=== PATIENT | male | born 1995 | race Caucasian/White ===

== ENCOUNTER 2017-05-12 16:35 | Inpatient (IN) | payer BC ==
[2017-05-12] MEDS ORDERED: MAGNESIUM HYDROXIDE 2,400 MG/10 ML CUP PO PRN (17:21)
[2017-05-12] MEDS ORDERED: ACETAMINOPHEN TAB 325 MG TAB PO PRN (17:21)
[2017-05-12] MEDS ORDERED: MAG HYDROX/AL HYDROX/SIMETH 30 ML CUP PO PRN (17:21)
[2017-05-12] MEDS ORDERED: OLANZapine 5 MG TAB PO ONE (17:45)
[2017-05-12] MEDS ORDERED: ZIPRASIDONE 20 MG VIAL IM STA (18:48)
[2017-05-12] MEDS ORDERED: ZIPRASIDONE 20 MG VIAL IM ONE (18:50)
[2017-05-12] MEDS ORDERED: WATER FOR INJECTION, STERILE 10 ML IV ONE (18:50)
[2017-05-12] MEDS ORDERED: HALOPERIDOL LACTATE 5 MG/ML 1 ML VIAL IM ONE (19:31)
[2017-05-12] MEDS ORDERED: LORazepam 2 MG/ML SYRINGE ONE (19:32)
[2017-05-12] MEDS ORDERED: HALOPERIDOL LACTATE 5 MG/ML 1 ML VIAL ONE (19:32)
[2017-05-12] MEDS ORDERED: LORazepam 2 MG/ML SYRINGE IM ONE (19:32)
[2017-05-13 09:05] LABS: Basophils % (A) 1 %; CH 34.9; CHCM 34.9; Eosinophils # (A) 0.1 k/uL (0-0.7); Eosinophils % (A) 2 %; HCT 51.7 % (39.0-53.0); HGB 17.5 gm/dL (13.0-17.5); Luc % (Auto) 2; Lymphocytes # (A) 1.5 k/uL (1.0-4.8); Lymphocytes % (A) 29 %; MCH 33.9 pg (25.0-35.0); MCHC 33.8 g/dL (31.0-37.0); MCV 100.2 fL (80.0-100.0); Mean Platelet Volume 6.6; Monocytes # (A) 0.3 k/uL (0-1.0); Monocytes % (A) 5 %; Neutrophils # (A) 3.4 k/uL (1.3-7.7); Neutrophils % (A) 62 %; RBC 5.16 m/uL (4.30-5.90); RDW 12.5 % (11.5-15.5); WBC 5.4 k/uL (4.0-11.0); WBC (Perox) 5.49
--- NOTE | 2017-05-13 09:24 | P.HP ---
Psychiatric H&P - . H&P Date: 05/13/17 History & Physical: Allergies Allergy/AdvReac Type Severity Reaction Status Date / Time No Known Allergies Allergy Verified 05/12/17 17:20 Vital Signs Temp 98.1 F 05/12/17 18:19 Pulse 69 05/12/17 18:19 Resp 15 05/12/17 18:19 BP 138/82 05/12/17 18:19 Pulse Ox 94 L 05/12/17 18:19 Intake & Output 05/12/17 05/13/17 05/13/17 18:59 06:59 18:59 Weight 57.5 kg 05/13/17 09:09 DATE OF SERVICE: 05/13/2017 IDENTIFYING DATA: This patient is a 22-year-old single male who was admitted to the mental health unit through transfer from emergency room at [facility].. HISTORY OF PRESENT ILLNESS: The patient presented emergency room [facility] for hearing voices telling him to kill himself. Reports that he was hearing 4-5 voices. He also reported seeing things like the dog and its leash and then thinking about hanging himself, thinking about the shotgun that's in his family's closet that he could just shoot himself. On exam today patient states there is no reason for him to be here, that we are holding him illegally that he came voluntarily to the hospital but now he wants to leave. States that he is called his parents and his girlfriend and that they won't speak with him, so he will call an attorney law clerk. Patient states that other behavior that got him to the emergency room was that he was "wide eyeing" his parents asked him to explain that he looked with wide eye around the room put his finger to the corner of his mouth and said I'll have to think about that. Patient began to show me his papers of the petition but could not make sense out of the paperwork, then when he asked if I was going to release him and informed about the process of petition and certification he then said this is over I don't need to speak with you anymore. " You don't like me because I'm interrupting you, you're mad at me. You have fluorescent lights in your office, you have air conditioning this is bad for people" And he left the office on his way out he said he would see outpatient psychiatrist like he did when he was a child.." I want a new psychiatrist". PAST PSYCHIATRIC HISTORY: Unknown but he did report seeing a psychiatrist as a child. PAST MEDICAL HISTORY: None. ALLERGIES: No known drug allergies. CHEMICAL DEPENDENCY HISTORY: Unknown but report of occasional marijuana use. FAMILY PSYCHIATRIC HISTORY: Unknown. FAMILY CHEMICAL DEPENDENCY HISTORY: Unknown. LEGAL HISTORY: Unknown. SOCIAL HISTORY: Patient reports that he has a girlfriend but otherwise no history was provided. MENTAL STATUS EXAM: Patient alert and oriented 3, good eye contact, fair groomed in hospital gown. Speech normal volume, rate and increased production, +pressured speech Coherent, logical and circumstantial, tangential thought process. No NATHAN, no FOI. No TB/TW/TI ++auditory and visual hallucinations. +Command hallucinations. Denied paranoid ideation, delusions or IOR. Memory grossly intact Cognition average Unable to complete memory testing Mood irritable, affect constricted, congruent with mood. Denies suicidal ideation, denies homicidal ideation. Insight none; Judgment grossly impaired . STRENGTHS: Has housing. WEAKNESSES: No insight, psychosis. IMPRESSIONS: 22-year-old male with incomplete past history, presented to [facility] emergency room with complaints of hearing voices that included command hallucinations of suicide. He was seeing different objects dog leash and thinking ups hanging himself, remembering that the family has a shot gun in the closet and thinking to shoot himself. Patient has pressured speech interrupting the sports book writer but being aware that he is interrupting the sports book writer and then attributing emotions to that sports book writer. Initially describing 4-5 voices, but now stating they are just his thoughts that he can kick out of his mind. 22-year-old male presenting with signs and symptoms of livia with psychosis, no insight. Command hallucinations that include ways to kill himself. Patient is a danger to himself and must be protected. We'll sign the second certification, and proceed to the court process. Psychosis, unspecified R/O Bipolar type I R/O Schizophreniform PLAN: Continue inpatient psychiatric admission for safety, assessment, and treatment of psychosis and livia. Suicide precautions every 15 minutes. Sign second certification. Begin risperidone 1 mg twice a day History and physical by hospitalist, manage medical illnesses. Psychosocial history to include his past history, family history, and any substance use history. Family meeting. Assessment patient's response to medication daily.
[2017-05-13 09:27] LABS: ALT 28 U/L (21-72); AST 20 U/L (17-59); Alkaline Phosphatase 46 U/L (38-126); Anion Gap 14 mmol/L; Blood Urea Nitrogen 14 mg/dL (9-20); Carbon Dioxide 26 mmol/L (22-30); Chloride 106 mmol/L (98-107); Glucose 94 mg/dL (74-99); Non-African American GFR(MDRD) >60 (>60 ml/min/1.73 sqM); Potassium 4.4 mmol/L (3.5-5.1); Sodium 146 mmol/L (137-145); Total Bilirubin 3.1 mg/dL (0.2-1.3); Total Protein 7.8 g/dL (6.3-8.2)
[2017-05-13] MEDS: NEOMYCIN-POLYMYXIN-HC (3.5-10,000-10 MG) OTIC DROPS 10 ML BTL LEFT EAR SCH ×2 (13:10→21:50)
--- NOTE | 2017-05-13 13:58 | P.CONS ---
History of Present Illness - Reason for Consult Consult date: 05/13/17 Medical management - History of Present Illness This is a 22-year-old male who does not have a primary care physician. He has a past medical history of tobacco use and dependence, marijuana use. Patient states that he has not been sleeping and having insomnia just staying up reading. He then was having hallucinations of items that were used to kill people. He was at [facility] and then transferred to [facility] health unit. He denies any previous mental health admissions. He has taken Adderall in the past because his employer did not think he could listen. Regarding smoking cessation, patient does not want a nicotine patch as he does not think it works and the only thing that works for him vaping which is not available here. Patient states he was recently treated for a left otitis media for which he is on Cortisporin otic solution. Review of Systems All systems: negative Constitutional: Denies chills, Denies fever Eyes: denies blurred vision, denies pain Ears, nose, mouth and throat: Denies headache, Denies sore throat Cardiovascular: Denies chest pain, Denies shortness of breath Respiratory: Denies cough Gastrointestinal: Denies abdominal pain, Denies diarrhea, Denies nausea, Denies vomiting Musculoskeletal: Denies myalgias Integumentary: Denies pruritus, Denies rash Neurological: Denies numbness, Denies weakness Psychiatric: Reports depression, Reports hallucinations, Reports insomnia, Denies anxiety Endocrine: Denies fatigue, Denies weight change Past Medical History Additional Past Alcohol Use History / Comment(s): Patient is a smoker of one pack per day for 7 years. He denies any alcohol use. He does use marijuana on a regular basis. He does not think he has used other street drugs. He is unemployed and single. He does not have any children. - Past Family History Father Additional Family Medical History / Comment(s): Father is alive at age 52 with no major medical problems. Mother Additional Family Medical History / Comment(s): Mother is alive at age 52 with no major medical problems. Brother(s) Additional Family Medical History / Comment(s): Patient has one half-brother and one half-sister with no major medical problems. Medications and Allergies Home Medications Medication Instructions Recorded Confirmed Type Neomycin/Polymyxin B/Hydrocort 4 drops LEFT EAR BID 05/13/17 05/13/17 History [Ipqshamo-Uzgljpuxi-Yy Ear Soln] Allergies Allergy/AdvReac Type Severity Reaction Status Date / Time No Known Allergies Allergy Verified 05/12/17 17:20 Physical Exam Vitals: Vital Signs Temp Pulse Resp BP Pulse Ox 05/12/17 18:19 98.1 F 69 15 138/82 94 L Intake and Output 05/12/17 05/13/17 05/13/17 22:59 06:59 14:59 Other: Weight 57.5 kg Gen: This is a 22-year-old male. He is cooperative and appears to be not acute distress. Patient does seem to have difficulty focusing. HEENT: Head is atraumatic, normocephalic. Pupils equal, round. Sclerae is anicteric. NECK: Supple. No JVD. No lymphadenopathy. No thyromegaly. LUNGS: Clear to auscultation. No wheezes or rhonchi. No intercostal retractions. HEART: Regular rate and rhythm. No murmur. ABDOMEN: Soft. Bowel sounds are present. No masses. No tenderness. EXTREMITIES: No pedal edema. No calf tenderness. NEUROLOGICAL: Patient is awake, alert and oriented x3. Cranial nerves 2 through 12 are grossly intact. Results CBC & Chem 7: 05/13/17 08:46 05/13/17 08:46 Labs: Abnormal Lab Results - Last 24 Hours (Table) 05/13/17 05/13/17 Range/Units 08:46 08:46 MCV 100.2 H (80.0-100.0) fL Sodium 146 H (137-145) mmol/L Total Bilirubin 3.1 H (0.2-1.3) mg/dL Assessment and Plan Plan: 1. Hallucinations, depression and insomnia. Patient admitted to the mental health unit. Continue current plan of care. 2. Tobacco use and dependence. Patient does not want nicotine patch or gum. 3. Left otitis media. Continue Cortisporin otic solution. Impression and plan of care have been directed as dictated by the signing physician. Janna Ward nurse practitioner acting as scribe for signing physician.
[2017-05-13] MEDS ORDERED: LITHIUM CARBONATE 300 MG CAP PO SCH (21:00)
--- NOTE | 2017-05-14 09:42 | P.PN ---
Progress Note - Text INTERVERAL HISTORY: Patient discussed at treatment team meeting, review of chart and met with patient. Patient was on the phone asked him if he could, when he was finished, he hung up and stated "I was just calling an family law attorney, you guys are not contacting my parents" patient reports that the staff won't talk to him, when he goes to the nurse's station he asked him to call his family and they ignore him states the other patients are talking about him they're whispering and laughing Asked him how he did last night said that he slept well and he is fine, and that he needs to go home. Reviewed with him the court process, that an family law attorney will be assigned to him, and will meet with him on a specific day and time. Patient is now saying he will do whatever just to get out of here. While trying to explain process again to him he interrupted constantly stating that we were not doing what we were supposed to do, that he needed help from family members not from a total stranger, and that he knows that lithium is for and that he does not have bipolar disorder, that it was due to the fact that he had been taking Adderall and that that psych a stimulant. States he's been taking Adderall since sixth or seventh grade, that it's like methamphetamine, and that all he needs is marijuana because it's an antidepressant. Patient irritable with script writer for not agreeing to call his parents to have a conference call. No evidence of patient responding to internal stimuli. MENTAL STATUS EXAM: Patient alert and oriented 3, good eye contact, fair groomed in hospital gown. Speech normal volume, rate and increased production, +pressured speech Coherent, logical and circumstantial, tangential thought process. No NATHAN, no FOI. No TB/TW/TI No auditory and visual hallucinations, reported, not responding to internal stimuli.+Paranoid ideation, delusions or IOR. Memory grossly intact Cognition average Unable to complete memory testing Mood irritable, affect constricted, congruent with mood. Denies suicidal ideation, denies homicidal ideation. Insight none; Judgment grossly impaired . IMPRESSIONS: 22-year-old male with incomplete past history, presented to [facility] emergency room with complaints of hearing voices that included command hallucinations of suicide. He was seeing different objects such as a dog leash and thinking of hanging himself, remembering that the family has a shot gun in the closet and thinking to shoot himself. Today patient continues with pressured speech interrupting the script writer. Today not describing 4-5 voices, but now stating other patients are talking and laughing about him, staff ignoring him. 22-year-old male presented with signs and symptoms of livia and psychosis, no insight. No command hallucinations reported today. Patient recieved 3 injections, Haldol, Geodon, Ativan which helped to lessen the livia and psychosis. Did not use risperidone yesterday due to his having received 2 injections of antipsychotics. Patient is a danger to himself and must be protected. We'll sign the second certification, and proceed to the court process. Psychosis, unspecified Livia R/O Bipolar type I R/O Schizophreniform PLAN: Continue inpatient psychiatric admission for safety, assessment, and treatment of psychosis and livia. Suicide precautions every 15 minutes. Increase [place] 600MG QHSs. Psychosocial history to include his past history, family history, and any substance use history. Family meeting. Assessment patient's response to medication daily.
[2017-05-14] MEDS: NICOTINE 14MG/24HR PATCH TRANSDERM SCH (09:52)
[2017-05-14] MEDS: NEOMYCIN-POLYMYXIN-HC (3.5-10,000-10 MG) OTIC DROPS 10 ML BTL LEFT EAR SCH ×2 (09:53→22:11)
[2017-05-14] MEDS: LITHIUM CARBONATE 300 MG CAP PO SCH (21:49)
[2017-05-15] MEDS: NICOTINE 14MG/24HR PATCH TRANSDERM SCH (09:04)
[2017-05-15] MEDS: NEOMYCIN-POLYMYXIN-HC (3.5-10,000-10 MG) OTIC DROPS 10 ML BTL LEFT EAR SCH ×2 (09:04→20:40)
--- NOTE | 2017-05-15 09:11 | P.PN ---
Progress Note - Text INTERVERAL HISTORY: Patient discussed at treatment team meeting, review of chart and met with patient. Patient was in his room with pencils and crayons, drawing. Responded to name and agreed to come to office. "I need some shoes" Reports he slept very well last night. Denies hearing voices, denies having his thoughts of hurting himself. States the staff are very helpful, no c/o patients talking/whispering/laughing about him. Discussed he will meet with his workers compensation defense attorney today for the court process, he did not say if he will sign deferral. Discussed medication, he is not wanting to take more medication. He was pleasant, cooperative, not interrupting magnetic tape typewriter operator. No demands made to leave or call his family. MENTAL STATUS EXAM: Patient alert and oriented 3, good eye contact, fair groomed in street clothing. Speech normal volume, rate and increased production, +pressured speech Coherent, logical and goal directed thought process. No NATHAN, no FOI. No TB/TW/TI No auditory and visual hallucinations, reported, not responding to internal stimuli. Not reporting paranoid ideation, delusions or IOR. Memory grossly intact Cognition average Mood euthymic, affect full range, normal intensity, congruent with mood. Denies suicidal ideation, denies homicidal ideation. Insight none; Judgment grossly impaired . IMPRESSIONS: 22-year-old male with incomplete past history, presented to [facility] emergency room with complaints of hearing voices that included command hallucinations of suicide. He was seeing different objects such as a dog leash and thinking of hanging himself, remembering that the family has a shot gun in the closet and thinking to shoot himself. Today patient was polite, cooperative, no intrusiveness no pressured speech no irritability. There is no evidence of psychosis today, not describing 4-5 voices, paranoid ideation. 22-year-old male presented with signs and symptoms of livia and psychosis, no insight. He had 2 shots of antipsychotic medication when he arrived on the unit 1 shot of Ativan. Since then he has only received lithium which was increased to 600 mg last night. Currently there does not appear to be any psychosis, and no livia. No history at this point of a depressive episode, so will have to diagnose livia, with a rule out of bipolar type I. Ilvia, resolved Psychosis, unspecified, resolved R/O Bipolar type I PLAN: Continue inpatient psychiatric admission for safety, assessment, and treatment of psychosis and livia. Suicide precautions every 15 minutes. Continue [place] 600MG QHSs. Blood level in 5 days is the ideal but it is unlikely he needs inpatient admission till then, will wait and see what happens today with court process, then consider level Th or Saturday AM. Psychosocial history to include his past history, family history, and any substance use history. Family meeting. Assessment patient's response to medication daily.
[2017-05-15] MEDS: LITHIUM CARBONATE 300 MG CAP PO SCH (20:39)
[2017-05-16 06:40] VITALS: BP 114/71; PULSE 67; RESP 18; TEMP 98.2
[2017-05-16] MEDS: NICOTINE 14MG/24HR PATCH TRANSDERM SCH (09:29)
[2017-05-16] MEDS: NEOMYCIN-POLYMYXIN-HC (3.5-10,000-10 MG) OTIC DROPS 10 ML BTL LEFT EAR SCH (09:29)
--- NOTE | 2017-05-16 12:16 | P.DS ---
Providers Date of admission: 05/12/17 17:58 Expected date of discharge: 05/16/17 Attending physician: Keerthi Mariscal MD Consults: 05/12/17 17:21 Consult Physician Routine Consulting Provider: Alin Mcnair Reason/Comments: follow up h & p Do you want consulting provider notified?: Yes Primary care physician: [facility] Course: ADMISSION HISTORY: The patient presented to emergency room at [facility] for hearing voices telling him to kill himself. Reports that he was hearing 4-5 voices. He also reported seeing things like the dog and its leash and then thinking about hanging himself, thinking about the shotgun that's in his family's closet that he could just shoot himself. On exam patient stated there is no reason for him to be here, that we are holding him illegally that he came voluntarily to the hospital but now he wants to leave. States that he is called his parents and his girlfriend and that they won't speak with him, so he will call an workers compensation defense attorney. Patient states that other behavior that got him to the emergency room was that he was "wide eyeing" his parents asked him to explain that he looked with wide eye around the room put his finger to the corner of his mouth and said I'll have to think about that". Patient began to show me his papers of the petition but could not make sense out of the paperwork, then when he asked if I was going to release him and informed about the process of petition and certification he then said "this is over I don't need to speak with you anymore , you don't like me because I'm interrupting you, you're mad at me. You have fluorescent lights in your office, you have air conditioning this is bad for people" And he left the office, but on his way out he said he would see outpatient psychiatrist like he did when he was a child.." I want a new psychiatrist". MENTAL STATUS EXAM: Patient alert and oriented 3, good eye contact, fair groomed in hospital gown. Speech normal volume, rate and increased production, +pressured speech Coherent, logical and circumstantial, tangential thought process. No NATHAN, no FOI. No TB/TW/TI ++auditory and visual hallucinations. +Command hallucinations. Denied paranoid ideation, delusions or IOR. Memory grossly intact Cognition average Unable to complete memory testing Mood irritable, affect constricted, congruent with mood. Denies suicidal ideation, denies homicidal ideation. Insight none; Judgment grossly impaired ADMISSION DIAGNOSES: Psychosis, unspecified R/O Bipolar type I R/O Schizophreniform HOSPITAL COURSE: Once patient was up on the unit he became agitated demanding to leave threatening, disorganized thought process. He was unable to calm down he was given Haldol 2 mg IM, then Geodon 20 mg IM, and then Ativan 2 mg IM. By a mid morning he was a bit calmer but he was still psychotic, demanding, manic. He was on a petition and it was decided that he could not sign in voluntarily and it went to the process of deferral. At the time of his admission he was psychotic he was manic. We could not get any history of previous episodes, and we could not reach the family for history. Initially I was going to use risperidone, but decided against that and used lithium. The first night he did not sleep well, increase lithium to 600 mg and he slept better. It is also noted that he did receive those 2 injections of an antipsychotic that may have been the reason that the psychosis resolved. We finally reached his mother who stated that approximately a year ago Cesar had a similar presentation and he was treated in an emergency room with large doses of Ativan, very difficult to calm him down. And that was due to his taking LSD. This admission patient denies that he took LSD, or any other drug of abuse. However he does state that he took several of his Adderall XR, dose unknown. MENTAL STATUS EXAM: Patient alert and oriented 3, good eye contact, well groomed in street clothing. Speech normal volume, rate and production, no pressured speech Coherent, logical and goal directed thought process. No NATHAN, no FOI. No TB/TW/TI No auditory and visual hallucinations, reported, not responding to internal stimuli. No paranoid ideation, delusions or IOR. Memory grossly intact Cognition average Mood euthymic, affect full range, normal intensity, congruent with mood. Denies suicidal ideation, denies homicidal ideation. Insight none; Judgment grossly impaired Patient accepted the deferral. He is sleeping, no evidence of psychosis, and no livia. DISCHARGE DIAGNOSES: Manic episode, resolved Psychosis, resolved PLAN: Will discharge. [place] 600mg QHS SW will set up outpatient treatment. Discussed need to keep hydrated, to stop lithium if he had vomiting, diarrhea, or a fever. Patient verbalized understanding. Pertinent Studies: none Procedures: none Plan - Discharge Summary New Discharge Prescriptions: New [place] Carbonate 600 mg PO HS #60 cap Continue Neomycin/Polymyxin B/Hydrocort [Jnlpukha-Ijgjpevlo-Jc Ear Soln] 4 drops LEFT EAR BID Discharge Medication List Neomycin/Polymyxin B/Hydrocort [Qjdqqsla-Aygoovwto-Oo Ear Soln] 4 drops LEFT EAR BID 05/13/17 [History] [place] Carbonate 600 mg PO HS #60 cap 05/16/17 [Rx] Discharge Disposition: HOME SELF-CARE
== END 2017-05-16 15:25 | disposition home or self-care (01) | DRG 885 ==
LOC: 3MHU 17:58
PROVIDERS: ADMIT Psychiatry & Neurology Addiction Medicine; ATTEND Psychiatry & Neurology Addiction Medicine
DX: F29 Unspecified psychosis not due to a substance or known physiological condition (principal); R45.851 Suicidal ideations; F30.9 Manic episode, unspecified; F12.90 Cannabis use, unspecified, uncomplicated; H66.92 Otitis media, unspecified, left ear; R45.4 Irritability and anger; F17.200 Nicotine dependence, unspecified, uncomplicated; G47.00 Insomnia, unspecified; Z56.0 Unemployment, unspecified
CPT/HCPCS: 80053; 84443; 85025

== ENCOUNTER 2017-06-09 21:34 | Inpatient (IN) | payer BC, MEDICAID ==
--- NOTE | 2017-06-09 23:07 | ED ---
Psych HPI - General Chief Complaint: Psychiatric Symptoms Stated Complaint: Mental Health Time Seen by Provider: 06/09/17 21:37 Source: patient, EMS, RN notes reviewed Mode of arrival: EMS Limitations: no limitations - History of Present Illness Initial Comments: 22-year-old male brought to emergency department via EMS for psychiatric evaluation. Patient was recently admitted the hospital for psychiatric problems. Patient is on lithium. Patient states that he has no complaints at this time is unsure why he is brought here. Patient is hand button splitter her petition for her arterial hallucinations. This was written by psychiatrist. Patient denies any suicidal homicidal threats. Patient states he has been taking his medication. Patient states he was drinking alcohol today. - Related Data Home Medications Medication Instructions Recorded Confirmed QUEtiapine FUMARATE [SEROquel] 25 - 50 mg PO HS 06/09/17 06/09/17 Previous Rx's Medication Instructions Recorded [place] Carbonate 600 mg PO HS #60 cap 05/16/17 Allergies Allergy/AdvReac Type Severity Reaction Status Date / Time No Known Allergies Allergy Verified 06/09/17 22:16 Review of Systems ROS Statement: Those systems with pertinent positive or pertinent negative responses have been documented in the HPI. ROS Other: All systems not noted in ROS Statement are negative. Past Medical History Past Medical History: No Reported History History of Any Multi-Drug Resistant Organisms: None Reported Past Surgical History: No Surgical Hx Reported Past Psychological History: Anxiety, Depression Smoking Status: Current every day smoker Past Alcohol Use History: Occasional Past Drug Use History: Marijuana - Past Family History Father Additional Family Medical History / Comment(s): Father is alive at age 52 with no major medical problems. Mother Additional Family Medical History / Comment(s): Mother is alive at age 52 with no major medical problems. Brother(s) Additional Family Medical History / Comment(s): Patient has one half-brother and one half-sister with no major medical problems. General Exam Limitations: no limitations General appearance: alert, in no apparent distress Head exam: Present: atraumatic, normocephalic, normal inspection Neck exam: Present: normal inspection. Absent: tenderness, meningismus, lymphadenopathy Respiratory exam: Present: normal lung sounds bilaterally. Absent: respiratory distress, wheezes, rales, rhonchi, stridor Cardiovascular Exam: Present: regular rate, normal rhythm, normal heart sounds. Absent: systolic murmur, diastolic murmur, rubs, gallop, clicks GI/Abdominal exam: Present: soft, normal bowel sounds. Absent: distended, tenderness, guarding, rebound, rigid Neurological exam: Present: alert, oriented X3, CN II-XII intact Psychiatric exam: Present: normal affect, normal mood Course Vital Signs 06/09/17 21:46 Temperature 98.3 F Pulse Rate 102 H Respiratory 20 Rate Blood Pressure 131/66 O2 Sat by Pulse 99 Oximetry Disposition Clinical Impression: Psychosis, Bipolar disorder Disposition: ADMITTED IP TO THIS HOSP Referrals: Alin Greco MD [Primary Care Provider] - 1-2 days
[2017-06-10 12:10] LABS: Appearance,Urine Clear (Clear); Bilirubin,Urine Negative (Negative); Glucose,Urine (UA) Negative (Negative); Ketones,Urine Negative (Negative); Leukocyte Esterase,Urine Negative (Negative); Nitrite,Urine Negative (Negative); Protein,Urine Negative (Negative); UA Billing (MACRO vs. MICRO) CHEM; Urobilinogen,Urine <2.0 mg/dL (<2.0)
[2017-06-10 12:23] LABS: Basophils % (A) 0 %; CH 34.2; CHCM 34.3; Eosinophils # (A) 0.1 k/uL (0-0.7); Eosinophils % (A) 1 %; HCT 49.5 % (39.0-53.0); HDW 2.24; HGB 17.2 gm/dL (13.0-17.5); Luc % (Auto) 1; Lymphocytes # (A) 1.1 k/uL (1.0-4.8); Lymphocytes % (A) 11 %; MCH 34.8 pg (25.0-35.0); MCHC 34.8 g/dL (31.0-37.0); MCV 100.1 fL (80.0-100.0); Mean Platelet Volume 6.9; Monocytes # (A) 0.5 k/uL (0-1.0); Monocytes % (A) 6 %; Neutrophils # (A) 7.6 k/uL (1.3-7.7); Neutrophils % (A) 81 %; RBC 4.95 m/uL (4.30-5.90); RDW 12.7 % (11.5-15.5); WBC 9.4 k/uL (4.0-11.0); WBC (Perox) 9.55
[2017-06-10 12:28] LABS: ALT 30 U/L (21-72); AST 23 U/L (17-59); Alkaline Phosphatase 50 U/L (38-126); Anion Gap 10 mmol/L; Blood Urea Nitrogen 14 mg/dL (9-20); Calcium 9.9 mg/dL (8.4-10.2); Carbon Dioxide 30 mmol/L (22-30); Chloride 101 mmol/L (98-107); Glucose 79 mg/dL (74-99); Non-African American GFR(MDRD) >60 (>60 ml/min/1.73 sqM); Potassium 4.3 mmol/L (3.5-5.1); Sodium 141 mmol/L (137-145); Total Bilirubin 1.7 mg/dL (0.2-1.3); Total Protein 7.5 g/dL (6.3-8.2)
[2017-06-10] MEDS ORDERED: NICOTINE 21MG/24HR PATCH TRANSDERM STA (12:57)
[2017-06-10] MEDS ORDERED: ACETAMINOPHEN TAB 325 MG TAB PO PRN (15:48)
[2017-06-10] MEDS ORDERED: ZIPRASIDONE 20 MG VIAL IM PRN (15:48)
[2017-06-10] MEDS ORDERED: MAGNESIUM HYDROXIDE 2,400 MG/10 ML CUP PO PRN (15:48)
[2017-06-10] MEDS ORDERED: MAG HYDROX/AL HYDROX/SIMETH 30 ML CUP PO PRN (15:48)
[2017-06-10] MEDS ORDERED: QUEtiapine 50 MG TAB PO SCH (21:00)
[2017-06-10] MEDS: LITHIUM CARBONATE 300 MG CAP PO SCH (21:22)
[2017-06-11] MEDS: NICOTINE 21MG/24HR PATCH TRANSDERM SCH (09:09)
--- NOTE | 2017-06-11 12:48 | P.HP ---
Psychiatric H&P - . H&P Date: 06/11/17 History & Physical: Allergies Allergy/AdvReac Type Severity Reaction Status Date / Time No Known Allergies Allergy Verified 06/09/17 22:16 Vital Signs Temp 97.9 F 06/11/17 06:42 Pulse 79 06/11/17 06:42 Resp 14 06/11/17 06:42 BP 108/67 06/11/17 06:42 Pulse Ox 99 06/10/17 15:51 Laboratory Last Values WBC 9.4 k/uL (4.0-11.0) 06/10/17 12:08 RBC 4.95 m/uL (4.30-5.90) 06/10/17 12:08 Hgb 17.2 gm/dL (13.0-17.5) 06/10/17 12:08 Hct 49.5 % (39.0-53.0) 06/10/17 12:08 MCV 100.1 fL (80.0-100.0) H 06/10/17 12:08 MCH 34.8 pg (25.0-35.0) 06/10/17 12:08 MCHC 34.8 g/dL (31.0-37.0) 06/10/17 12:08 RDW 12.7 % (11.5-15.5) 06/10/17 12:08 Plt Count 275 k/uL (150-450) 06/10/17 12:08 Neutrophils % 81 % 06/10/17 12:08 Lymphocytes % 11 % 06/10/17 12:08 Monocytes % 6 % 06/10/17 12:08 Eosinophils % 1 % 06/10/17 12:08 Basophils % 0 % 06/10/17 12:08 Neutrophils # 7.6 k/uL (1.3-7.7) 06/10/17 12:08 Lymphocytes # 1.1 k/uL (1.0-4.8) 06/10/17 12:08 Monocytes # 0.5 k/uL (0-1.0) 06/10/17 12:08 Eosinophils # 0.1 k/uL (0-0.7) 06/10/17 12:08 Basophils # 0.0 k/uL (0-0.2) 06/10/17 12:08 Sodium 141 mmol/L (137-145) 06/10/17 12:08 Potassium 4.3 mmol/L (3.5-5.1) 06/10/17 12:08 Chloride 101 mmol/L (98-107) 06/10/17 12:08 Carbon Dioxide 30 mmol/L (22-30) 06/10/17 12:08 Anion Gap 10 mmol/L 06/10/17 12:08 BUN 14 mg/dL (9-20) 06/10/17 12:08 Creatinine 0.83 mg/dL (0.66-1.25) 06/10/17 12:08 Est GFR (MDRD) Af Amer >60 (>60 ml/min/1.73 sqM) 06/10/17 12:08 Est GFR (MDRD) Non-Af >60 (>60 ml/min/1.73 sqM) 06/10/17 12:08 Glucose 79 mg/dL (74-99) 06/10/17 12:08 Calcium 9.9 mg/dL (8.4-10.2) 06/10/17 12:08 Total Bilirubin 1.7 mg/dL (0.2-1.3) H 06/10/17 12:08 AST 23 U/L (17-59) 06/10/17 12:08 ALT 30 U/L (21-72) 06/10/17 12:08 Alkaline Phosphatase 50 U/L (38-126) 06/10/17 12:08 Total Protein 7.5 g/dL (6.3-8.2) 06/10/17 12:08 Albumin 4.8 g/dL (3.5-5.0) 06/10/17 12:08 Urine Color Light Yellow 06/10/17 10:30 Urine Appearance Clear (Clear) 06/10/17 10:30 Urine pH 8.0 (5.0-8.0) 06/10/17 10:30 Ur Specific [place] 1.010 (1.001-1.035) 06/10/17 10:30 Urine Protein Negative (Negative) 06/10/17 10:30 Urine Glucose (UA) Negative (Negative) 06/10/17 10:30 Urine Ketones Negative (Negative) 06/10/17 10:30 Urine Blood Negative (Negative) 06/10/17 10:30 Urine Nitrite Negative (Negative) 06/10/17 10:30 Urine Bilirubin Negative (Negative) 06/10/17 10:30 Urine Urobilinogen <2.0 mg/dL (<2.0) 06/10/17 10:30 Ur Leukocyte Esterase Negative (Negative) 06/10/17 10:30 Urine Opiates Screen Not Detected (NotDetected) 06/10/17 10:30 Ur Oxycodone Screen Not Detected (NotDetected) 06/10/17 10:30 Urine Methadone Screen Not Detected (NotDetected) 06/10/17 10:30 Ur Propoxyphene Screen Not Detected (NotDetected) 06/10/17 10:30 Ur Barbiturates Screen Not Detected (NotDetected) 06/10/17 10:30 U Tricyclic Antidepress Not Detected (NotDetected) 06/10/17 10:30 Ur Phencyclidine Scrn Not Detected (NotDetected) 06/10/17 10:30 Ur Amphetamines Screen Not Detected (NotDetected) 06/10/17 10:30 U Methamphetamines Scrn Not Detected (NotDetected) 06/10/17 10:30 U Benzodiazepines Scrn Not Detected (NotDetected) 06/10/17 10:30 [place] 0.7 mmol/L 06/09/17 23:40 Urine Cocaine Screen Not Detected (NotDetected) 06/10/17 10:30 U Marijuana (THC) Screen Not Detected (NotDetected) 06/10/17 10:30 06/11/17 12:48 DATE OF SERVICE: June 11 2017 IDENTIFYING DATA: This patient is a 22-year-old single male who was admitted to the mental health unit through emergency room, brought in by his parents due to an interaction he had with them... HISTORY OF PRESENT ILLNESS: Cesar was brought in on court order due to responding to internal cues, current psychosis and verbal aggression toward family members. Extreme mood swings. Family reports crying then happy then laughing then sad then agitation. He's been talking to things that aren't there , arguing with parent about events that never occurred or exist and verbal profanity toward mother. family members give him his medication daily. Denies suicidal and homicidal ideation at this time. Does report seeing and hearing things currently while in EC. Polite and cooperative at this time. The patient presented emergency room after his psychiatrist requested him to be brought in due to psychosis and verbal aggression with family members. Patient states that he does not know why he was brought here he reports that he is doing fine, he is very pleasant and cooperative. Initially when asked about hearing voices he denies but later agrees that he might have his own voice telling him things are making him laugh. He also agreed that sometimes there is something like in their relation about his behavior. States that when it's an negative, met about his behavior he ignores it but he could not provide any information. Family reported that they give his medications and his lithium level taken in the emergency room was 0.7 mmol/L When he was discharged here in April he was discharged only on lithium, at that time psychosis had resolved just with lithium. His outpatient psychiatrist put him on quetiapine/Seroquel 50 mg at bedtime. Was also noted that his PAT was 0.9. He denies that he drinks alcohol however his MCV was elevated at 101 and his bilirubin was also elevated but he denies that he drinks on a regular basis. Patient denies suicidal ideation. PAST PSYCHIATRIC HISTORY: Patient was admitted here last month in a manic state started on lithium and responded well reports that he has been keeping his appointments with his outpatient psychiatrist and that family reportedly is giving him his medications which appears to be true with his lithium level being at 0.7 PAST MEDICAL HISTORY: None. ALLERGIES: No known drug allergies. CHEMICAL DEPENDENCY HISTORY: Alcohol use. occasional marijuana use. FAMILY PSYCHIATRIC HISTORY: At last hospitalization his mother reported that nobody has mental health problems in their family FAMILY CHEMICAL DEPENDENCY HISTORY: Unknown. LEGAL HISTORY: Unknown. SOCIAL HISTORY: Patient lives with his mother and father he is not working. He has a sister. He reported last hospitalization that he has a girlfriend. MENTAL STATUS EXAM: Patient alert and oriented 3, good eye contact, well groomed in street clothing. Speech normal volume, rate and production, no pressured speech Coherent, logical and circumstantial, thought process. No NATHAN, no FOI. No TB/TW/ TI ++auditory and visual hallucinations. +Command hallucinations. Denied paranoid ideation, delusions or IOR. Memory grossly intact Cognition average Unable to complete memory testing Mood euthymic almost elevated, affect full range almost expansive congruent with mood. Denies suicidal ideation, denies homicidal ideation. Insight none; Judgment grossly intact for treatment purposes . STRENGTHS: Has housing. WEAKNESSES: No insight, psychosis. IMPRESSIONS: 22-year-old male with past history of livia and psychosis but psychosis resolved with lithium. Appears psychosis has emerged and outpatient psychiatrist had him picked up for treatment(inpatient) as part of court ordered treatment. He is endorsing auditory hallucinations, commenting on his behavior. Denies command hallucinations. 22-year-old male presenting with signs and symptoms of livia with psychosis, no insight. No command hallucinations. No suicidal ideation. Psychosis, unspecified R/O Schizophreniform PLAN: Continue inpatient psychiatric admission for safety, assessment, and treatment of psychosis Suicide precautions every 15 minutes. History and physical by hospitalist, manage medical illnesses. Check lithium level tomorrow morning. Increase seroquel 300mg qhs Family meeting. Assessment patient's response to medication daily. Milieu therapy 06/11/17 13:19
[2017-06-11] MEDS: LITHIUM CARBONATE 300 MG CAP PO SCH (20:21)
[2017-06-11] MEDS ORDERED: QUEtiapine 200 MG TAB PO SCH (21:00)
--- NOTE | 2017-06-12 08:14 | P.MDCNMH ---
History of Present Illness H&P Date: 06/11/17 Chief Complaint: Medical management This is a 22-year-old male who does not have a primary care physician. He has a past medical history of tobacco use and dependence, marijuana use. Patient states that he has not been sleeping and having insomnia just staying up reading. Was concerned that he was manic again and wanted him to have blood work checked. Patient was brought in by ambulance. Patient states that he is still taking his lithium. Patient thinks he just needs his medications regulated. Urine drug screen was negative. Review of Systems All systems: negative Constitutional: Denies chills, Denies fever Eyes: denies blurred vision, denies pain Ears, nose, mouth and throat: Denies headache, Denies sore throat Cardiovascular: Denies chest pain, Denies shortness of breath Respiratory: Denies cough Gastrointestinal: Denies abdominal pain, Denies diarrhea, Denies nausea, Denies vomiting Musculoskeletal: Denies myalgias Integumentary: Denies pruritus, Denies rash Neurological: Denies numbness, Denies weakness Psychiatric: Reports anxiety, Reports mood swings, Denies depression Endocrine: Denies fatigue, Denies weight change Past Medical History Past Medical History: No Reported History History of Any Multi-Drug Resistant Organisms: None Reported Past Surgical History: No Surgical Hx Reported Past Psychological History: Anxiety, Depression Smoking Status: Current every day smoker Past Alcohol Use History: Occasional Past Drug Use History: Marijuana - Past Family History Father Additional Family Medical History / Comment(s): Father is alive at age 52 with no major medical problems. Mother Additional Family Medical History / Comment(s): Mother is alive at age 52 with no major medical problems. Brother(s) Additional Family Medical History / Comment(s): Patient has one half-brother and one half-sister with no major medical problems. Medications and Allergies Home Medications Medication Instructions Recorded Confirmed Type QUEtiapine FUMARATE [SEROquel] 25 - 50 mg PO HS 06/09/17 06/09/17 History Allergies Allergy/AdvReac Type Severity Reaction Status Date / Time No Known Allergies Allergy Verified 06/09/17 22:16 Physical Exam Vitals: Vital Signs Temp Pulse Pulse Resp BP BP Pulse Ox 06/11/17 06:42 97.9 F 79 14 108/67 06/10/17 15:51 97.5 F L 71 18 146/78 99 Gen: This is a 22-year-old male. He is cooperative and appears to be not acute distress. Patient does seem to have difficulty focusing. HEENT: Head is atraumatic, normocephalic. Pupils equal, round. Sclerae is anicteric. NECK: Supple. No JVD. No lymphadenopathy. No thyromegaly. LUNGS: Clear to auscultation. No wheezes or rhonchi. No intercostal retractions. HEART: Regular rate and rhythm. No murmur. ABDOMEN: Soft. Bowel sounds are present. No masses. No tenderness. EXTREMITIES: No pedal edema. No calf tenderness. NEUROLOGICAL: Patient is awake, alert and oriented x3. Cranial nerves 2 through 12 are grossly intact. Cranial Nerve Examination - Cranial Nerves Cranial Nerve II- Optic: Intact Cranial Nerve III- Oculomotor: Intact Cranial Nerve IV- Trochlear: Intact Cranial Nerve V- Trigeminal: Intact Cranial Nerve - Abducens: Intact Cranial Nerve VII- Facial: Intact Cranial Nerve VIII- Auditory: Intact Cranial Nerve IX- Glossopharyngeal: Intact Cranial Nerve X- Vagus: Intact Cranial Nerve XI- Accessory: Intact Cranial Nerve XII- Hypoglossal: Intact Results CBC & Chem 7: 06/10/17 12:08 06/10/17 12:08 Assessment and Plan Plan: 1. Bipolar disorder, depression and insomnia. Patient admitted to the mental health unit. Continue current plan of care. 2. Tobacco use and dependence. Patient does not want nicotine patch or gum. Impression and plan of care have been directed as dictated by the signing physician. Janna Ward nurse practitioner acting as scribe for signing physician.
[2017-06-12] MEDS: NICOTINE 21MG/24HR PATCH TRANSDERM SCH (08:29)
[2017-06-12 11:27] LABS: Lithium 0.4 mmol/L
--- NOTE | 2017-06-12 12:01 | P.PN ---
Progress Note - Text INTERVERAL HISTORY: Patient discussed at treatment team meeting, review of record, met with patient. Staff reports they spoke to mother and that mother reported he would have wild conversations, in a room by himself talking as if to another person, laughing, staring at the computer for hours without doing anything. Patient has been reclusive on the unit staying to himself doing coloring. Patient denies hearing voices or odd thoughts, when asked about what his mother said states that it was just a joke, just teasing her. Patient is pleasant and cooperative, not displaying livia, hypomania, depression. Laboratory Tests 06/12/17 08:37 Triglycerides 179 H Cholesterol 165 LDL Cholesterol, Calc 61 HDL Cholesterol 68 H [place] 0.4 MENTAL STATUS EXAM: Patient alert and oriented 3, good eye contact, well groomed in street clothing. Speech normal volume, rate and production, no pressured speech Coherent, logical and circumstantial, thought process. No NATHAN, no FOI. No TB/TW/ TI Today denies a/v hallucinations or calls them a way to be funny. Denied paranoid ideation, delusions or IOR. Memory grossly intact Cognition average Mood euthymic almost elevated, affect full range almost expansive congruent with mood. Denies suicidal ideation, denies homicidal ideation. Insight none; Judgment grossly intact for treatment purposes . IMPRESSIONS: 22-year-old male with past history of livia and psychosis but psychosis resolved with lithium. Appears psychosis has re-emerged, family called police/ems for his behavior at home, responding to internal stimuli, starring at computer for hours. He endorsed auditory hallucinations, commenting on his behavior, yesterday but now denies. 22-year-old male presenting with signs and symptoms of livia with psychosis, no insight. No command hallucinations. No suicidal ideation. Psychosis, unspecified R/O Schizophreniform PLAN: Continue inpatient psychiatric admission for safety, assessment, and treatment of psychosis Suicide precautions every 15 minutes. History and physical by hospitalist, manage medical illnesses. Increase lithium 900mg qhs Increase seroquel 300mg qhs Family meeting. Assessment patient's response to medication daily. Milieu therapy
[2017-06-12] MEDS: LITHIUM CARBONATE 300 MG CAP PO SCH (20:42)
[2017-06-12] MEDS ORDERED: QUEtiapine 100 MG TAB PO SCH (21:00)
--- NOTE | 2017-06-13 08:27 | P.PN ---
Progress Note - Text INTERVERAL HISTORY: Patient discussed at treatment team meeting, review of record, met with patient. Staff reports patient's mother and sister came for visiting last night. Patient reports he had a good visit with them. He continues to remain isolated not attending groups, staying to himself coloring or doing other activities. States that he is sedated, still unable to identify any thoughts on his own but when asked about conversations going on in his head he says she has a sometimes , maybe "but I ignore them" Patient continues to deny symptoms saying that he is great ready to go, but if asked in a different way he does endorse auditory hallucinations. His lithium was raised last night to 900 Seroquel was raised to 300. Patient is pleasant and cooperative, not displaying livia, hypomania, depression. Laboratory Tests 06/12/17 08:37 Triglycerides 179 H Cholesterol 165 LDL Cholesterol, Calc 61 HDL Cholesterol 68 H [place] 0.4 MENTAL STATUS EXAM: Patient alert and oriented 3, good eye contact, well groomed in street clothing. Speech normal volume, rate and production, no pressured speech Coherent, logical and circumstantial, thought process. No NATHAN, no FOI. No TB/TW/ TI Denies a/v hallucinations or calls them a way to be funny. Denied paranoid ideation, delusions or IOR. Memory grossly intact Cognition average Mood euthymic almost elevated, affect full range almost expansive congruent with mood. Denies suicidal ideation, denies homicidal ideation. Insight none; Judgment grossly intact for treatment purposes . IMPRESSIONS: 22-year-old male with past history of lviia and psychosis but psychosis resolved with lithium. Appears psychosis has re-emerged, family called police/ems for his behavior at home, responding to internal stimuli, starring at computer for hours. He endorsed auditory hallucinations, commenting on his behavior, yesterday but now denies. 22-year-old male presenting with signs and symptoms of livia with psychosis, no insight. No command hallucinations. No suicidal ideation. Psychosis, unspecified R/O Schizophreniform Bipolar disorder type I versus schizoaffective disorder, bipolar type PLAN: Continue inpatient psychiatric admission for safety, assessment, and treatment of psychosis/mood Suicide precautions every 15 minutes. History and physical by hospitalist, manage medical illnesses. Continue lithium 900mg qhs, will need a blood level in 4 days Increase seroquel 400mg qhs Family meeting postponed Assessment patient's response to medication daily. Milieu therapy
[2017-06-13] MEDS: NICOTINE 21MG/24HR PATCH TRANSDERM SCH (10:53)
[2017-06-13] MEDS: QUEtiapine 400 MG TAB PO SCH (20:13)
[2017-06-13] MEDS: LITHIUM CARBONATE 300 MG CAP PO SCH (20:13)
--- NOTE | 2017-06-14 08:54 | P.PN ---
Progress Note - Text INTERVERAL HISTORY: Patient discussed at treatment team meeting, review of record, met with patient. Staff reports patient does not attend groups, stays in room or in hallway when no one around. Patient asleep @10;00, pleasant, reports he is "fine". Asked about conversations he states "they are all gone" States that he is sedated, still unable to identify any thoughts on his own but when asked about conversations going on in his head he says she has a sometimes , maybe "but I ignore them" Patient continues to deny symptoms saying that he is great ready to go, but if asked in a different way he does endorse auditory hallucinations. Patient is pleasant and cooperative, not displaying livia, hypomania, depression. MENTAL STATUS EXAM: Patient alert and oriented 3, good eye contact, in bed. Speech normal volume, rate and production, no pressured speech Coherent, logical and circumstantial, thought process. No NATHAN, no FOI. No TB/TW/ TI Denies a/v hallucinations or calls them a way to be funny. Denied paranoid ideation, delusions or IOR. Memory grossly intact Cognition average Mood euthymic almost elevated, affect full range almost expansive congruent with mood. Denies suicidal ideation, denies homicidal ideation. Insight none; Judgment grossly intact for treatment purposes . IMPRESSIONS: 22-year-old male with past history of livia and psychosis but psychosis resolved with lithium. Appears psychosis has re-emerged, family called police/ems for his behavior at home, responding to internal stimuli, starring at computer for hours. He endorsed auditory hallucinations, commenting on his behavior, yesterday but now denies. 22-year-old male presenting with signs and symptoms of livia with psychosis, no insight. No command hallucinations. No suicidal ideation. Psychosis, unspecified R/O Schizophreniform Bipolar disorder type I versus schizoaffective disorder, bipolar type PLAN: Continue inpatient psychiatric admission for safety, assessment, and treatment of psychosis/mood Suicide precautions every 15 minutes. History and physical by hospitalist, manage medical illnesses. Continue lithium 900mg qhs, will need a blood level Saturday morning Continue seroquel 400mg qhs Family meeting postponed until Sat Assessment patient's response to medication daily. Milieu therapy
[2017-06-14] MEDS: NICOTINE 21MG/24HR PATCH TRANSDERM SCH (09:02)
[2017-06-14] MEDS: QUEtiapine 400 MG TAB PO SCH (20:48)
[2017-06-14] MEDS: LITHIUM CARBONATE 300 MG CAP PO SCH (20:48)
[2017-06-15] MEDS: NICOTINE 21MG/24HR PATCH TRANSDERM SCH (08:10)
--- NOTE | 2017-06-15 10:43 | P.PN ---
Progress Note - Text Interval history: The patient is found in his room he follows this to an interview room. The patient is being treated for symptoms of livia with psychosis. He is currently on lithium. The dosage was increased to 900 mg at bedtime as the last blood level was subtherapeutic at 0.4. He also is taking Seroquel 400 mg at bedtime. He states that his hallucinations have resolved and they are not present in any form. He feels that the Seroquel helps him sleep. He is documented to have slept 6 hours. He states he has been attending some groups but does enjoy staying in his room and reading and coloring. Mental status exam: The patient is a thin male he is dressed in his own clothing wearing a T-shirt and shorts. Hygiene grooming appears to be adequate. Eye contact is appropriate speech is fluent nonpressured. He is reporting no suicidal ideation he is endorsing no auditory or visual hallucinations there is no overt evidence of psychosis. He demonstrates no verbal or physical aggressiveness. Insight and judgment appear to be improving. He is pleasant cooperative and appropriately participates in the conversation. He demonstrates an appropriate range of expression. Plan: The patient will continue on his current medication. He appears to be psychiatrically stabilizing. His lithium level be checked Saturday. He will participate in a family meeting scheduled for today. We will continue to monitor him for safety and encourage his continued participation in the milieu.
[2017-06-15] MEDS: QUEtiapine 400 MG TAB PO SCH (20:02)
[2017-06-15] MEDS: LITHIUM CARBONATE 300 MG CAP PO SCH (20:02)
[2017-06-16] MEDS: NICOTINE 21MG/24HR PATCH TRANSDERM SCH (09:14)
--- NOTE | 2017-06-16 09:27 | P.PN ---
Progress Note - Text Interval history: The patient is found in the library he follows me to an interview room. He states that his mood is stable he has no questions or concerns at this time. He feels that the Seroquel dose is higher than it needs to be. He states that he will experience some dizziness if he wakes up in the middle of the night and feels that he is sleeping longer than he needs to. It appears his outpatient dose was 25-50 mg his current dose is 400 mg. This was likely needed to stabilize his mood. He continues to take lithium as written. He is due for a lithium level tomorrow. The patient did participate in a family meeting yesterday those notes are reviewed it appears that it was productive. The patient's endorsing no hallucinations he is endorsing no racing thoughts. Mental status exam: The patient is a thin male appearing his stated age hygiene grooming are adequate. He is dressed in his own clothing. Eye contact is good. He mainly answers questions asked of him. Frequent responses are "yes sir" or "no sir". He does have some spontaneous speech. He is reporting no auditory or visual hallucinations he is endorsing no specific delusions. There appears to be no gross evidence of psychosis. He does not appear hypomanic or manic. He reports no suicidal or homicidal ideation intent or plan. Insight and judgment appear to be improving. He is oriented to person place and date. There is no verbal or physical aggressiveness. There is no evidence of abnormal involuntary movements. Plan: The patient will continue on his current medication. We may consider reducing the Seroquel dose at bedtime. [place] levels ordered for tomorrow. It appears he is clinically stabilizing. We will continue monitoring him for safety. Vital signs reviewed.
[2017-06-16] MEDS: LITHIUM CARBONATE 300 MG CAP PO SCH (20:13)
[2017-06-16] MEDS: QUEtiapine 400 MG TAB PO SCH (20:13)
[2017-06-17] MEDS: NICOTINE 21MG/24HR PATCH TRANSDERM SCH (08:43)
--- NOTE | 2017-06-17 09:00 | P.PN ---
Progress Note - Text INTERVERAL HISTORY: Patient discussed at treatment team meeting, review of record, met with patient. Staff reports patient had his family meeting over the weekend. He continues to avoid groups stays to himself. Patient patient has tolerated the increase of the Seroquel to 400, however yesterday Dr. Fuentes thought may be he was too sedated at that dose and possibly consider to reduce it, however today patient states that he is fine with the dose he goes to bed around 11 wakes up at 8 and then he might go back to bed after breakfast sleeps for an hour. He reports that he is no longer having conversations in his head "I just have like a little headache" Patient is pleasant and cooperative, not displaying livia, hypomania, depression. Laboratory Tests 06/17/17 08:41 [place] 0.4 MENTAL STATUS EXAM: Patient alert and oriented 3, good eye contact, came to nurses station when paged. Speech normal volume, rate and production, no pressured speech Coherent, logical and circumstantial, thought process. No NATHAN, no FOI. No TB/TW/ TI Denies a/v hallucinations denies having conversations in his head. Denied paranoid ideation, delusions or IOR. Memory grossly intact Cognition average Mood euthymic not elevated or expansive, affect full range normal intensity congruent with mood. Denies suicidal ideation, denies homicidal ideation. Insight none; Judgment grossly intact for treatment purposes . IMPRESSIONS: 22-year-old male with past history of livia and psychosis but psychosis resolved with lithium. Psychosis returned outpatient psychiatrist started on Seroquel and it was raised to 400 mg at bedtime. [place] was also raised to 900 mg daily at bedtime with a blood level of 0.4 mmol/liter Mood appears appropriate neutral to euthymic without being expansive, affect full range normal intensity congruent with mood. No appearance of responding to internal stimuli. Although he never identified auditory hallucinations when asked about conversations going on in his head he did endorse some frequently saying that they were funny or they were making comments about him now that appears to have resolved with the higher dose of Seroquel. No insight. No suicidal ideation. Psychosis, unspecified R/O Schizophreniform Bipolar disorder type I versus schizoaffective disorder, bipolar type PLAN: Continue inpatient psychiatric admission for safety, assessment, and treatment of psychosis/mood Suicide precautions every 15 minutes. History and physical by hospitalist, manage medical illnesses. Increase lithium 1200mg qhs, Continue seroquel 400mg qhs Discharge tomorrow. Patient does not have a preference for a male therapist but more than likely would need someone who typically works with the younger patients. Assessment patient's response to medication daily. Milieu therapy
[2017-06-17] MEDS: LITHIUM CARBONATE 300 MG CAP PO SCH (21:05)
[2017-06-17] MEDS: QUEtiapine 400 MG TAB PO SCH (21:06)
[2017-06-18 07:31] VITALS: BP 142/63; PULSE 88; RESP 18; TEMP 98.2
--- NOTE | 2017-06-18 08:40 | P.DS ---
Providers Date of admission: 06/10/17 15:35 Expected date of discharge: 06/18/17 Attending physician: Keerthi Mariscal MD Consults: 06/10/17 15:48 Consult Physician Routine Consulting Provider: Alin Mcnair Reason/Comments: history and physical Do you want consulting provider notified?: Yes Primary care physician: [place] [facility] Hospital Course: BRIEF ADMISSION HISTORY: Patient was brought to the hospital after parents noted that he had been responding to internal cues talking and laughing to himself, verbal aggression toward family members, extreme mood swings family reported that he was crying and then laughing, moving from sad to agitation. Family reported that he was talking to things that were not there arguing with parents that never occurred and use profanity toward mother. Family reported they've been giving him his lithium on a daily basis. When he was admitted the lithium level was 0.7 however that was not at a 12 hour time frame from when he dosed the lithium. HOSPITAL COURSE: Patient throughout this hospital stay denied hearing voices however if it was asked in a different way such as conversations going on in his head he did endorse some, and he endorsed derogatory comments made about him. Patient stated that he could ignore them. He also stated that when he was talking to himself at home that he was doing it just for joke. Patient had a euthymic presentation at all times pleasant and cooperative. He had been started on quetiapine/Seroquel by his outpatient psychiatrist and was tolerating it so this was increased to 400 mg daily at bedtime, lithium was increased to 900 daily at bedtime. He responded well to these doses although a bit sedated during the day. It was planned to increase his lithium at bedtime to 1200 mg however the order was not signed so he continued at 900 mg, with a blood level of 0.4 mmol/L. Will increase dose to 1200mg for discharge Patient is stable for discharge. Bipolar disorder type I, MRE manic with psychosis Laboratory Tests 06/17/17 08:41 [place] 0.4 Plan: Discharge to home. Patient will continue to see Dr. Greco. SW to arrange appointment with counseling center for a different outpatient therapist. Pertinent Studies: none Procedures: none Patient Condition at Discharge: Stable Plan - Discharge Summary New Discharge Prescriptions: [place] [facility] Carbonate 1,200 mg PO HS #120 cap QUEtiapine [SEROquel] 400 mg PO HS #[address] [facility] Carbonate 600 mg PO HS #60 cap QUEtiapine FUMARATE [SEROquel] 25 - 50 mg PO HS Discharge Medication List [facility] Carbonate 1,200 mg PO HS #120 cap 06/18/17 [Rx] QUEtiapine [SEROquel] 400 mg PO HS #30 tab 06/18/17 [Rx] Follow up Appointment(s)/Referral(s): Intake, Intake [Other] - 1 Week (w/ Jeff Freeman on 06/20/27 @ 8pm) Alin Greco MD [Primary Care Provider] - 1-2 days
[2017-06-18] MEDS: NICOTINE 21MG/24HR PATCH TRANSDERM SCH (09:20)
[2017-06-18] MEDS ORDERED: LITHIUM CARBONATE 300 MG CAP PO SCH (21:00)
== END 2017-06-18 14:10 | disposition home or self-care (01) | DRG 885 ==
LOC: EC 21:34 → 3MHU 06-10 15:35 → UNDODISIN 06-18 13:10
PROVIDERS: ADMIT Psychiatry & Neurology Addiction Medicine; ATTEND Psychiatry & Neurology Addiction Medicine
DX: F31.2 Bipolar disorder, current episode manic severe with psychotic features (principal); F17.200 Nicotine dependence, unspecified, uncomplicated; F12.90 Cannabis use, unspecified, uncomplicated; Z79.899 Other long term (current) drug therapy
CPT/HCPCS: 36415; 80053; 80061; 80178; 80306; 81003; 82075; 85025; 99285

== ENCOUNTER 2020-08-09 12:10 | Inpatient (IN) | payer BC, MEDICAID, OTHER ==
--- NOTE | 2020-08-09 12:53 | ED ---
Psych HPI - General Chief Complaint: Psychiatric Symptoms Stated Complaint: EPS eval Time Seen by Provider: 08/09/20 12:22 Source: patient, RN notes reviewed, old records reviewed Mode of arrival: ambulatory - History of Present Illness Initial Comments: This is a 25-year-old male patient presents today for evaluation regards to psychiatric illness. Patient may need medication adjustments also denies drugs or alcohol use today. No travel history sick contacts no dramatic injuries denying recent drugs or alcohol MD Complaint: other (Medications not working appropriately) -: unknown Associated Psychiatric Symptoms: depression, racing thoughts, auditory hallucinations History of same: Yes Quality: intermittent Improves With: none Worsens With: none Associated Symptoms: denies other symptoms Treatments Prior to Arrival: placed on mental health hold - Related Data Home Medications Medication Instructions Recorded Confirmed ALPRAZolam [Xanax] 1 mg PO TID PRN 08/09/20 08/09/20 Lurasidone HCl [Latuda] 60 mg PO DAILY 08/09/20 08/09/20 QUEtiapine [SEROquel] 25 mg PO DAILY 08/09/20 08/09/20 QUEtiapine [SEROquel] 100 mg PO HS 08/09/20 08/09/20 busPIRone HCL [Buspar] 7.5 mg PO BID 08/09/20 08/09/20 Allergies Allergy/AdvReac Type Severity Reaction Status Date / Time No Known Allergies Allergy Verified 08/09/20 13:51 Review of Systems ROS Statement: Those systems with pertinent positive or pertinent negative responses have been documented in the HPI. ROS Other: All systems not noted in ROS Statement are negative. Past Medical History Past Medical History: No Reported History History of Any Multi-Drug Resistant Organisms: None Reported Past Surgical History: No Surgical Hx Reported Past Psychological History: Anxiety, Depression Smoking Status: Current every day smoker, Vaper Past Alcohol Use History: Occasional Past Drug Use History: Marijuana - Past Family History Father Additional Family Medical History / Comment(s): Father is alive at age 52 with no major medical problems. Mother Additional Family Medical History / Comment(s): Mother is alive at age 52 with no major medical problems. Brother(s) Additional Family Medical History / Comment(s): Patient has one half-brother and one half-sister with no major medical problems. General Exam Limitations: no limitations General appearance: alert, in no apparent distress Head exam: Present: atraumatic, normocephalic, normal inspection Eye exam: Present: normal appearance, PERRL, EOMI. Absent: scleral icterus, conjunctival injection, periorbital swelling ENT exam: Present: normal exam, mucous membranes moist Neck exam: Present: normal inspection. Absent: tenderness, meningismus, lymphadenopathy Respiratory exam: Present: normal lung sounds bilaterally. Absent: respiratory distress, wheezes, rales, rhonchi, stridor Cardiovascular Exam: Present: regular rate, normal rhythm, normal heart sounds. Absent: systolic murmur, diastolic murmur, rubs, gallop, clicks GI/Abdominal exam: Present: soft, normal bowel sounds. Absent: distended, tenderness, guarding, rebound, rigid Extremities exam: Present: normal inspection, full ROM, normal capillary refill. Absent: tenderness, pedal edema, joint swelling, calf tenderness Back exam: Present: normal inspection Neurological exam: Present: alert, oriented X3, CN II-XII intact Psychiatric exam: Present: normal affect, normal mood Skin exam: Present: warm, dry, intact, normal color. Absent: rash Course Vital Signs 08/09/20 12:14 Temperature 98.1 F Pulse Rate 102 H Respiratory 18 Rate Blood Pressure 135/92 O2 Sat by Pulse 98 Oximetry - Reevaluation(s) Reevaluation #1: 08/09/20 12:53 Medical records reviewed Reevaluation #2: 08/09/20 14:32 Patient was seen in however psychiatry here in the ER does have appointment scheduled outpatient Reevaluation #3: 08/09/20 14:32 Patient is not homicidal or suicidal Medical Decision Making - Medical Decision Making 25 male to the ER for evaluation patient for evaluation regards to possible giving medication adjustment. Patient does have follow-up as scheduled with a psychiatrist and therapist Disposition Clinical Impression: Bipolar disorder, Encounter for medication adjustment Disposition: ADMITTED IP TO THIS HOSP Condition: Good Is patient prescribed a controlled substance at d/c from ED?: No Referrals: Anthony Delcid DO [Primary Care Provider] - 1-2 days
[2020-08-09 17:29] LABS: Amphetamine Screen,Urine Not Detected (NotDetected); Barbiturate Screen,Urine Not Detected (NotDetected); Benzodiazepines Screen,Urine Not Detected (NotDetected); Cocaine Screen,Urine Not Detected (NotDetected); Methadone Screen, Urine Not Detected (NotDetected); Opiate Screen,Urine Not Detected (NotDetected); Oxycodone Screen, Urine Not Detected (NotDetected); Phencyclidine Screen,Urine Not Detected (NotDetected); Urn Cannabinoid Scrn Not Detected (NotDetected)
[2020-08-09 17:30] LABS: Tricyclic Antidepressant,Urine Detected (NotDetected)
[2020-08-09] MEDS ORDERED: ZIPRASIDONE 20 MG VIAL IM PRN (18:39)
[2020-08-09] MEDS ORDERED: MAGNESIUM HYDROXIDE 2,400 MG/10 ML CUP PO PRN (18:39)
[2020-08-09] MEDS ORDERED: ACETAMINOPHEN TAB 325 MG TAB PO PRN (18:39)
[2020-08-09] MEDS ORDERED: MAG HYDROX/AL HYDROX/SIMETH 30 ML CUP PO PRN (18:39)
--- NOTE | 2020-08-10 00:50 | P.CONS ---
History of Present Illness - Reason for Consult Consult date: 08/09/20 - History of Present Illness The patient is a 25-year-old male with a PMH of mild intermittent asthma, anxiety, and depression who presented to the emergency room for adjustment of his medications. He was thereby admitted to the mental health unit where he was seen and evaluated at the bedside earlier today. He reported no active complaints. He denied chest pain, shortness of breath, fever, chills, or cough. Also denied nausea, vomiting, abdominal pain, or diarrhea. Review of Systems Pertinent positives and negatives as discussed in HPI, a complete review of systems was performed and all other systems are negative. Past Medical History Past Medical History: No Reported History History of Any Multi-Drug Resistant Organisms: None Reported Past Surgical History: No Surgical Hx Reported Past Psychological History: Anxiety, Bipolar, Depression, Schizophrenia Smoking Status: Current every day smoker, Vaper Past Alcohol Use History: None Reported, Occasional Additional Past Alcohol Use History / Comment(s): Patient is a smoker of one pack per day for 7 years. He denies any alcohol use. He does use marijuana on a regular basis. He does not think he has used other street drugs. He is une mployed and single. He does not have any children. Past Drug Use History: Marijuana - Past Family History Father Additional Family Medical History / Comment(s): Father is alive at age 52 with no major medical problems. Mother Additional Family Medical History / Comment(s): Mother is alive at age 52 with no major medical problems. Brother(s) Additional Family Medical History / Comment(s): Patient has one half-brother and one half-sister with no major medical problems. Medications and Allergies Home Medications Medication Instructions Recorded Confirmed Type ALPRAZolam [Xanax] 1 mg PO TID PRN 08/09/20 08/09/20 History Lurasidone HCl [Latuda] 60 mg PO DAILY 08/09/20 08/09/20 History QUEtiapine [SEROquel] 25 mg PO DAILY 08/09/20 08/09/20 History QUEtiapine [SEROquel] 100 mg PO HS 08/09/20 08/09/20 History busPIRone HCL [Buspar] 7.5 mg PO BID 08/09/20 08/09/20 History Allergies Allergy/AdvReac Type Severity Reaction Status Date / Time No Known Allergies Allergy Verified 08/09/20 13:51 Physical Exam Vitals: Vital Signs Temp Pulse Resp BP BP Pulse Ox 08/09/20 18:51 98.0 F 18 126/73 97 08/09/20 18:26 98.6 F 68 18 116/69 100 08/09/20 12:14 98.1 F 102 H 18 135/92 98 Intake and Output 08/09/20 08/09/20 08/09/20 06:59 14:59 22:59 Other: Weight 81.647 kg 75.1 kg General: non toxic, no distress, appears at stated age, normal weight Derm: no unusual rashes/lesions no unusual ecchymoses, warm, dry Head: atraumatic, normocephalic, symmetric Eyes: EOMI, no lid lag, anicteric sclera, pupils equal round reactive to light ENT: Nose and ears atraumatic, no thrush, no pharyngeal erythema Neck: No thyromegaly, no cervical lymphadenopathy, trachea midline, supple Mouth: no lip lesion, mucus membranes moist Cardiovascular: S1S2 reg, no murmur, positive posterior tibial pulse bilateral, no edema, capillary refill less than 2 seconds Lungs: CTA bilateral, no rhonchi, no rales , no accessory muscle use Abdominal: soft, nontender to palpation, no guarding, no appreciable organomegaly, normal bowel sounds Ext: no gross muscle atrophy, muscle strength 5 out of 5 in all 4 extremities grossly, no contractures, Neuro: CN II-XI grossly intact, light touch intact all 4 extremities, finger to nose within normal limits, Psych: Alert, oriented, flat affect Results Labs: Abnormal Lab Results - Last 24 Hours (Table) 08/09/20 Range/Units 17:11 U Tricyclic Antidepress Detected H (NotDetected) Assessment and Plan Plan: Mild intermittent asthma -Albuterol inhaler when necessary Anxiety, depression -As per psychiatry Thank you for allowing us to participate in the care of this patient. We will follow peripherally. Do not hesitate to contact us with questions. Someone can be reached from the [facility] hospitalist group at all hours of the day at [phone].
[2020-08-10] MEDS ORDERED: ALBUTEROL HFA INHALER INHALATION PRN (01:00)
[2020-08-10 09:23] LABS: Basophils % (A) 1 %; Eosinophils # (A) 0.1 k/uL (0-0.7); Eosinophils % (A) 2 %; HCT 48.7 % (39.0-53.0); HGB 16.2 gm/dL (13.0-17.5); Lymphocytes % (A) 41 %; MCH 32.3 pg (25.0-35.0); MCHC 33.3 g/dL (31.0-37.0); MCV 97.1 fL (80.0-100.0); Mean Platelet Volume 7.1; Monocytes # (A) 0.3 k/uL (0-1.0); Monocytes % (A) 5 %; Neutrophils # (A) 2.4 k/uL (1.3-7.7); Neutrophils % (A) 49 %; Platelet Count 247 k/uL (150-450); RBC 5.01 m/uL (4.30-5.90); RDW 11.9 % (11.5-15.5); WBC 4.8 k/uL (3.8-10.6)
[2020-08-10 09:30] LABS: Cholesterol 149 mg/dL (<200); HDL Cholesterol 47 mg/dL (40-60); LDL Cholesterol,Calculated 75 mg/dL (0-99); Triglycerides 135 mg/dL (<150)
[2020-08-10 09:41] LABS: ALT 16 U/L (4-49); AST 19 U/L (17-59); African American GFR (CKD) >90 (>60 ml/min/1.73 sqM); Albumin 4.5 g/dL (3.5-5.0); Alkaline Phosphatase 54 U/L (38-126); Anion Gap 5 mmol/L; Blood Urea Nitrogen 8 mg/dL (9-20); Calcium 9.8 mg/dL (8.4-10.2); Carbon Dioxide 31 mmol/L (22-30); Chloride 103 mmol/L (98-107); Glucose 87 mg/dL (74-99); Non-African American GFR(CKD) >90 (>60 ml/min/1.73 sqM); Sodium 139 mmol/L (137-145); Total Bilirubin 2.2 mg/dL (0.2-1.3); Total Protein 7.1 g/dL (6.3-8.2)
[2020-08-10] MEDS: NICOTINE 14MG/24HR PATCH TRANSDERM SCH ×2 (10:47→18:17)
--- NOTE | 2020-08-10 13:14 | HP ---
HISTORY AND PHYSICAL IDENTIFYING DATA: The patient is 25, single male who is currently on social security disability since March of 2020. Patient is living with his parents and he is his own guardian. HISTORY OF PRESENT ILLNESS: Patient came to the emergency room stating that he needs to change his medication as he has high anxiety. Patient was very vague, guarded, and not cooperative with the intake and initially he was seen by the Mobile Crisis Unit and they did recommend to send him home to follow up with outpatient due to his high anxiety; however, his family was very upset about this and they came to petition the patient. As the patient was very poor historian and very guarded and does not discuss anything except "I am just not schizophrenic. I am just having high anxiety." His sister did fill the petition, stated that the patient saying that the plant or grass has feeling and you cannot cut it. Also he cannot eat any animal because they have feeling. In addition, he wrote a note of putting foil all over his wall in his room. His mother trying to give him his psychotropic medication, Seroquel, so he took it from his mom and he ran away out of the house. When I read this petition to him, he denied any of this allegation. He stated that his sister is lying and he took more Seroquel from his mother because he used to be on 800 mg Seroquel and he stated "If you read books, you know that the animal and the plant have feeling like us." Despite that the family stated that he is not sleeping or eating, and he will get up and play the piano very loudly at 3 am in the morning and even he does not shower more than once a week. Patient stated "I just sleep when I am tired." PAST PSYCHIATRIC HISTORY: This is his third psych hospitalization. In 2017, he was here twice and both times it was on court order as he was responding to internal cue and even he was verbally aggressive towards family member. PREVIOUS DIAGNOSES: Psychosis, NOS, schizoaffective disorder, bipolar type, and polysubstance use disorder. Patient stated that he did try most of the psychotropic medication and he does not like any of this. He stated that he did try Risperdal, Invega, Abilify, naproxen, Seroquel, lithium. There is no previous suicidal attempt. Currently, he has been seen in the outpatient at [facility] in [place]. The patient never had been on long-acting injection despite his poor compliance for the last couple of years. CHEMICAL DEPENDENCY HISTORY: It is an extensive history. He stated that he was drinking, he started at age 20, but he was very vague and guarded about the amount and how often. He said "just socially." He stated that he used to inhale industrial glue, using cocaine, mushroom, methamphetamine, prescription medication, pain medication and Xanax, but he denied any use since August 2019. He stated that he was in [place] for 2 weeks for substance abuse. FAMILY PSYCHIATRIC HISTORY: According to him, his mother has depression. LEGAL HISTORY: Patient had drunk driving tickets in November or December of this year and he spent one night in halfway and currently has a suspended license. SOCIAL HISTORY: Patient is the youngest of three. He has one brother and one sister. Currently, he is living with his parents and he is receiving social security disability. He is not in any relationship. He does not have any children. Patient stated was significant over the last year that two of his best friends overdosed on heroin and they due to accidental overdose of drug. Patient graduated from high school. 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 MENTAL STATUS EXAMINATION: Patient is casually dressed, young male who looks his stated age, marginal grooming and hygiene. Poor eye contact. His speech is non spontaneous, just one or two words. Very vague, evasive, guarded. He denied having any suicidal or homicidal ideation. He denied any auditory or visual hallucination. However, he did report bizarre delusional thinking, as his thinking that the plant and the animal are having feelings and we cannot eat any meat or cut the plants or grass. The patient seems very paranoid and suspicious. His memory is grossly intact. Stated mood "anxious." Affect is blunted. Insight and judgment are impaired. STRENGTHS AND WEAKNESS: STRENGTHS: Patient has housing, social security income, support family. WEAKNESS: No insight of his mental illness and poor compliance with treatment. ASSESSMENT OR DIAGNOSES: 1. Psychosis, unspecified, rule out schizoaffective disorder, bipolar type. 2. History of polysubstance use disorder. PLAN: The patient was admitted to the mental health unit on involuntary basis. I will fill another PC. History and physical by hospitalist to manage any medical issue. I will continue him on p.r.n. medication until the probate court. He is encouraged to attend group therapy. I did discuss with him to start him on Abilify and Invega, then switch it to long-acting injection; however, patient declined and he was very resistant, so will wait until probate court. mental health social worker on board for discharge planning. MMROSARIOL / ROXIE: [phone] /
[2020-08-10 18:57] LABS: Hemoglobin A1C 5.1 % (4.0-6.0)
[2020-08-11] MEDS: NICOTINE 14MG/24HR PATCH TRANSDERM SCH ×2 (09:38→22:50)
--- NOTE | 2020-08-11 12:27 | P.PN ---
Progress Note - Text Progress Note Date: 08/11/20 I reviewed medical records ,did interview patient and case was discussed in treatment team I reviewed medical consult Slept 6 hours No participation in any groups ,withdrawn,isolating himself in his room UDS was positive for tricyclic TODAY VITALS: Temp:98.7,P:112,R:16 BP:120/72 Interval history:patient was dressed in street clothing laying in bed and refused to follow me to office ,he was smiling inappropriate ,bizarre delusion "I just saw woman came to my room and I used my bathroom",guarded ,evasive,stated that he will stay in his room till his discharge Mental status exam: Patient was wearing his own cloth ,hygiene and grooming are poor , vague,guarded ,speech is limited ,just one word answer , ,laughing inappropriate ,seems responding to internal stimuli, ,reports bizarre delusion as above ,tangential with loose of association, alert to person and place ,denies any suicidal or homicidal ideation ,very concrete in r thinking insight and judgment are impaired ASSESSMENT :Schizoaffective disorder ,bipolar type ,poor compliance with [place] PLAN: Patient continues to meet criteria for inpatient psychiatric admission for symptom stabilization and safety.PRN Ativan and Geodon for agitation,waiting for probate court to start long acting injection due to poor compliance ,enco urage participation in group,SW on board for post-discharge plan
--- NOTE | 2020-08-12 08:12 | P.PN ---
Progress Note - Text Progress Note Date: 08/12/20 I reviewed medical records ,did interview patient and case was discussed in treatment team SLEEP: difficulty falling asleep ,only 3 hours Participate in one group Interval history:patient was dressed in street clothing laying in bed and refused to follow me to office , guarded ,when I asked him about reason of his insomnia ,he replied "A lot on my mind"then he refused to elaborate ,stated that he is tired as he did not sleep last night ,I explained to him that I will start him on medication to clear his mind and restore his sleep ,he replied "OK PLEASE" Mental status exam: Patient was wearing his own cloth ,hygiene and grooming are poor , vague,guarded ,speech is limited ,just one word answer , ,,seems responding to internal stimuli, , paranoia and suspicious,, alert to person and place ,denies any suicidal or homicidal ideation ,very concrete in his thinking insight and judgment are impaired ASSESSMENT :Schizoaffective disorder ,bipolar type ,poor compliance with [place] PLAN: Patient continues to meet criteria for inpatient psychiatric admission for symptom stabilization and safety ,I will start Abilify 15 mg continue .PRN Ativan and Geodon for agitation,waiting for probate court to start long acting injection due to poor compliance , ,encourage participation in group,SW on board for post-discharge plan
[2020-08-12] MEDS: NICOTINE 14MG/24HR PATCH TRANSDERM SCH (09:08)
[2020-08-12] MEDS: ARIPiprazole 15 MG TAB PO SCH (20:21)
[2020-08-13] MEDS: NICOTINE 14MG/24HR PATCH TRANSDERM SCH (10:07)
[2020-08-13] MEDS ORDERED: hydrOXYzine pamoate 25 MG CAP PO PRN (17:34)
--- NOTE | 2020-08-13 17:34 | P.PN ---
Progress Note - Text Progress Note Date: 08/13/20 Subjective: Patient was seen today as a cross coverage for Dr. Alex. The patient was evaluated, chart reviewed, case discussed with the treatment team. Patient reports good sleep last night, and appetite was reported as "good ". Patient has not been going to groups and other unit activities. The patient is compliant with his medications and denies any adverse reactions. Patient reports feeling stable emotionally and he denies depression, hopelessness, or suicidal. He suad es mood swings, irritability, or homicidal ideation. Denies any hallucinations, delusions, or paranoid ideation. No report of manic symptoms. Reports having bouts of anxiety and requested when necessary medication. Objective: Vitals has been reviewed. Mental status examination; Appearance: The patient appears stated age, adequately groomed and dressed, no specific features. Gait/posture: Normal gait, Normal arm swinging: No abnormal movements. Attitude and behavior: engaged, cooperative, fair eye contact. Motor activity: Normal psychomotor activity Speech: Normal rate, tone. Mood: Anxious Affect: Constricted Thought form: goal-directed, linear, coherent. Thought content: Non-delusional, denies suicidal thoughts, denies homicidal thoughts, denies intentions or plans. Perception: Denies any auditory or visual hallucinations Attention: No impairment. Orientation: Patient patient was fully oriented to time place person and situation. Insight: Patient has fair insight about his psychiatric disorder. Judgment: Patient has fair judgment about his psychiatric treatment. Assessment: Schizoaffective disorder, bipolar type. Plan: Continue inpatient level of care due to need for further stabilization Precautions: Continue 15 minutes check for safety. Consider medical consultation if any acute medical issues arise. Provide the patient individual, group therapy, substance use disorder counseling to give better insight and learn coping skills. Medications: Abilify 15 mg daily for mood stabilization and psychotic symptoms. Start Vistaril 25 mg 3 times a day as needed for anxiety Continue as needed medications for psychiatric emergencies including psychosis, agitation and anxiety. Continue non-psychiatric medications for medical conditions as recommended by the medical team. Discharge patient to OUTPATIENT services upon a stabilization
[2020-08-13] MEDS: ARIPiprazole 15 MG TAB PO SCH (20:57)
[2020-08-14] MEDS: NICOTINE 14MG/24HR PATCH TRANSDERM SCH (08:21)
[2020-08-14] MEDS ORDERED: MIRTAZAPINE 15 MG TAB PO PRN (13:54)
--- NOTE | 2020-08-14 13:54 | P.PN ---
Progress Note - Text Progress Note Date: 08/14/20 Subjective: Patient was seen today as a cross coverage for Dr. Alex. The patient was evaluated, chart reviewed, case discussed with the treatment team. Patient reports had trouble sleeping last night that he couldn't fall asleep and he continues to wake up every 10:15 minutes. He denies any appetite problems, and he was attending some groups today. Patient continues to take his psychiatric medications without side effects reported. He minimizes depression and anxiety symptoms, and he denies feeling hopeless or suicidal. Denies any hallucinations, paranoid ideation, or delusions. Discussed Remeron to help with insomnia and when to start the medication as needed tonight. Objective: Vitals has been reviewed. Mental status examination; Appearance: The patient appears stated age, adequately groomed and dressed, no specific features. Gait/posture: Normal gait, Normal arm swinging: No abnormal movements. Attitude and behavior: engaged, cooperative, fair eye contact. Motor activity: Normal psychomotor activity Speech: Normal rate, tone. Mood: Anxious Affect: Constricted Thought form: goal-directed, linear, coherent. Thought content: Non-delusional, denies suicidal thoughts, denies homicidal thoughts, denies intentions or plans. Perception: Denies any auditory or visual hallucinations Attention: No impairment. Orientation: Patient patient was fully oriented to time place person and situation. Insight: Patient has fair insight about his psychiatric disorder. Judgment: Patient has fair judgment about his psychiatric treatment. Assessment: Schizoaffective disorder, bipolar type. Plan: Continue inpatient level of care due to need for further stabilization Precautions: Continue 15 minutes check for safety. Consider medical consultation if any acute medical issues arise. Provide the patient individual, group therapy, substance use disorder counseling to give better insight and learn coping skills. Medications: Abilify 15 mg daily for mood stabilization and psychotic symptoms. Continue Vistaril 25 mg 3 times a day as needed for anxiety Start Remeron 15 mg at bedtime as needed for insomnia. Continue as needed medications for psychiatric emergencies including psychosis, agitation and anxiety. Continue non-psychiatric medications for medical conditions as recommended by the medical team. Discharge patient to OUTPATIENT services upon a stabilization
[2020-08-14] MEDS: ARIPiprazole 15 MG TAB PO SCH (20:00)
--- NOTE | 2020-08-15 09:42 | P.PN ---
Progress Note - Text Progress Note Date: 08/15/20 I reviewed medical records ,did interview patient and case was discussed in treatment team SLEEP: interrupted sleep ,no interaction with others Participate in some group ,compliant with Abilify ,no side-effect ACCORDING TO SW NOTES((T/C to pt's mom Janessa to obtain collateral information. Per mom, at visiting yesterday pt was still talking about seeing animals on the mckeon and bizarre. Mom states he reports not sleeping well either. She confirmed that the guns in the home are all locked up and out of access of patient. She feels he still has much more room for improvement but did confirm he can return home upon dc when stable. Aftercare will remain with Michelle. Will discuss the above at tx team meeting today.)) DR Chandra added Remeron PRN on Weekend Interval history:patient was dressed in street clothing laying in bed and refused to follow me to office , guarded ,evasive ,stated that he wants sleeping pill as he has been up every fifteen minute, Mental status exam: Patient was wearing his own cloth ,hygiene and grooming are poor , vague,guarded ,speech is limited ,just one word answer , ,,seems responding to internal stimuli, , paranoia and suspicious,, alert to person and place ,denies any suicidal or homicidal ideation ,very concrete in his thinking insight and judgment are impaired ASSESSMENT :Schizoaffective disorder ,bipolar type ,poor compliance with TX PLAN: Patient continues to meet criteria for inpatient psychiatric admission for symptom stabilization and safety ,continue Abilify 15 mg HS ,add Vistaril 50 mg HS ,d/c Remeron .PRN Luis Armando and Adilia for agitation,waiting for probate court to start long acting injection due to poor compliance , ,encourage participation in group,SW on board for post-discharge plan
[2020-08-15] MEDS: NICOTINE 14MG/24HR PATCH TRANSDERM SCH (10:40)
[2020-08-15] MEDS: LORazepam 1 MG TAB PO PRN ×2 (13:49→20:12)
[2020-08-15] MEDS: ARIPiprazole 15 MG TAB PO SCH (20:12)
[2020-08-15] MEDS ORDERED: hydrOXYzine pamoate 25 MG CAP PO SCH (21:00)
[2020-08-15] MEDS ORDERED: MIRTAZAPINE 15 MG TAB PO SCH (21:00)
[2020-08-16] MEDS: LORazepam 1 MG TAB PO PRN ×3 (03:56→17:03)
--- NOTE | 2020-08-16 09:19 | P.PN ---
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 that 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,according to him he has at least more than 25 tattoes on his body "I started at age 20" Mental status exam: Patient was wearing his own cloth ,hygiene and grooming are poor , ,body odor, less guarded,speech is spontaneous and coherent, ,denies any hallucination,some underlying paranoia,, alert to person and place ,denies any suicidal or homicidal ideation ,very concrete in his thinking insight and judgment are improving ASSESSMENT :Schizoaffective disorder ,poor compliance with TX PLAN: Patient continues to meet criteria for inpatient psychiatric admission for symptom stabilization and safety ,continue Abilify 15 mg HS ,increase Vistaril 100 mg HS,Remeron for insomnia and mood .PRN Ativan and Geodon for agitation,waiting for probate court to start long acting injection due to poor compliance , ,encourage participation in group,SW on board for post-discharge plan
[2020-08-16] MEDS: NICOTINE 14MG/24HR PATCH TRANSDERM SCH (09:50)
[2020-08-16] MEDS: ARIPiprazole 15 MG TAB PO SCH (20:04)
[2020-08-16] MEDS: hydrOXYzine pamoate 25 MG CAP PO SCH (20:05)
[2020-08-16] MEDS ORDERED: MIRTAZAPINE 15 MG TAB PO SCH (21:00)
[2020-08-17] MEDS: LORazepam 1 MG TAB PO PRN (04:13)
[2020-08-17] MEDS ORDERED: ARIPiprazole IM 400 MG VIAL (NO COST) PHARMACY STOCK IM ONE (08:25)
[2020-08-17] MEDS: NICOTINE 14MG/24HR PATCH TRANSDERM SCH (08:28)
[2020-08-17] MEDS: hydrOXYzine pamoate 25 MG CAP PO PRN ×3 (08:30→18:54)
--- NOTE | 2020-08-17 08:43 | P.PN ---
Progress Note - Text Progress Note Date: 08/17/20 I reviewed medical records ,did interview patient and case was discussed in treatment team SLEEP: 6 hours but according to patient he had initial insomnia despite taking Remeron and Vistaril 100 mg TODAY VITALS:Tem:98.1,P:77,R:16,BP:105/54 Had PRN 1 mg Ativan last night for anxiety Participate in some group ,compliant with Abilify ,denies any side effects Patient did sign deferral on 08/16 Interval history:patient was dressed in street clothing .came to my office asking to talk to me ,patient stated that he wishes to be discharged before his sister birthday"[birth year]",he talked about having chronic insomnia and nothing does help (I tried Remeron ,Trazodone ,low dose of Seroquel and Benadryl ,nothing did hep except 400 mg Seroquel ",I explained to patient that he is on Abilify and will transition to long acting injection due to poor compliance ,he replied "I do not like injection ,can you just put me on Seroquel ",patient stated that he tried most of anti-psychotic since age 20 or 21 and "I did not like it did make me like Zombie,I discussed pro and con of psychotropic meds and patient verbalized understanding Mental status exam: Patient was wearing his own cloth ,hygiene and grooming are improving, , less guarded,speech is spontaneous and coherent, ,denies any hallucination,some underlying paranoia,,,does not seem he is responding to any internal stimuli alert to person and place ,denies any suicidal or homicidal ideation ,very concrete in his thinking insight and judgment are improving ASSESSMENT :Schizoaffective disorder versus Schizophrenia ,poor compliance with TX,Cannabis use disorder PLAN: Patient continues to meet criteria for inpatient psychiatric admission for symptom stabilization and safety ,d/c Remeron and d/c PRN Ativan ,add Melatonin for insomnia ,PRN Vistaril for anxiety,continue Abilify 15 mg HS and order 400 mg IM Abilify Maintaina today continue Vistaril 100 mg HS,PRN Geodon for agitation,add PRN low dose of Seroquel for insomnia, ,encourage participation in group,SW on board for post-discharge plan
[2020-08-17] MEDS ORDERED: ARIPiprazole IM SYRINGE 400 MG (NO CHARGE) PHARMACY STOCK IM ONE (08:45)
[2020-08-17 15:01] VITALS: BMI 25.9
[2020-08-17] MEDS: hydrOXYzine pamoate 25 MG CAP PO SCH (20:15)
[2020-08-17] MEDS: MELATONIN 3 MG TABLET PO SCH (20:15)
[2020-08-17] MEDS ORDERED: QUEtiapine 50 MG TAB PO PRN (21:00)
[2020-08-18] MEDS: hydrOXYzine pamoate 25 MG CAP PO PRN (05:21)
[2020-08-18] MEDS ORDERED: carBAMazepine 100 MG TAB.ER.12H PO STA (09:05)
[2020-08-18] MEDS ORDERED: QUEtiapine 100 MG TAB PO PRN (09:06)
[2020-08-18] MEDS: NICOTINE 14MG/24HR PATCH TRANSDERM SCH (09:15)
--- NOTE | 2020-08-18 09:21 | P.PN ---
Progress Note - Text Progress Note Date: 08/18/20 I reviewed medical records ,did interview patient and case was discussed in treatment team SLEEP: 2 hours despite taking Vistaril ,Melatonin and PRN Seroquel TODAY VITALS:Tem:98.1,P:101,R:16,BP:115/79 Had PRN Vistaril for anxiety two times over last 24 hours Participate in some group ,compliant with Abilify ,denies any side effects Withdrawn with limited contact with others patients Interval history:patient was dressed in street clothing .came to my office asking to talk to me , he stated that he did not sleep last night "Maybe ten minutes",endorses racing thoughts and high anxiety. Patient talked about his 2 years relationship that ended as patient was not faithful "I was in manic episode and I slept with another girl ",talked about his extensive hx of substance use :sedative hypnotic,Meth,industrial glue,Mushroom ,alcohol ,still using Kratom and Cannabis Mental status exam: Patient was wearing his own cloth ,hygiene and grooming are improving, , less guarded,speech is spontaneous and coherent, ,denies any hallucination,,does not seem he is responding to any internal stimuli alert to person and place ,denies any suicidal or homicidal ideation ,very concrete in his thinking insight and judgment are improving ASSESSMENT :Schizoaffective disorder ,bipolar ,poor compliance with TX,Cannabis use disorder PLAN: Patient continues to meet criteria for inpatient psychiatric admission for symptom stabilization and safety ,add Tegretol ER 200 mg BID ,continue Vistaril and Melatonin for insomnia ,PRN Vistaril for anxiety,continue Abilify 30 mg HS ,received 400 mg IM Abilify Maintaina on 08/17 PRN low dose of Seroquel for insomnia, ,encourage participation in group,SW on board for post-discharge plan
[2020-08-18] MEDS: ARIPiprazole 15 MG TAB PO SCH (20:14)
[2020-08-18] MEDS: MELATONIN 3 MG TABLET PO SCH (20:14)
[2020-08-18] MEDS: hydrOXYzine pamoate 25 MG CAP PO SCH (20:15)
--- NOTE | 2020-08-19 08:50 | P.PN ---
Progress Note - Text Progress Note Date: 08/19/20 I reviewed medical records ,did interview patient and case was discussed in treatment team SLEEP: 6-7 hours ,with his schedule night meds,did not require PRN Seroquel Yesterday he had PRN Vistaril for anxiety TODAY VITALS:Tem:97.5,P:82,BP:119/78 Participate in some group ,compliant with oral medications and denies any side effects Interval history:patient was dressed in street clothing .came to my office asking to talk to me as he requesting to be discharged today ,I did discuss with him that he has to stay so we can titrate Tegretol ,he replied "So if I stopped taking it can I go home ",I explained to him pro and con and to avoid re- hospitalization ,he verbalized understanding,He was talking about "Tall people do care as they see everyone ",illogical but I offered reality oriented therapy and he replied"I guess short people can care ,I was thinking this because I wish to be tall " Mental status exam: Patient was wearing his own cloth ,hygiene and grooming are improving, , less guarded,speech is spontaneous and coherent, ,denies any hallucination,some underlying paranoia,,,does not seem he is responding to any internal stimuli alert to person and place ,denies any suicidal or homicidal ideation ,very concrete in his thinking insight and judgment are improving ASSESSMENT :Schizoaffective disorder ,bipolar type versus Schizophrenia ,poor compliance with TX,Cannabis use disorder PLAN: Patient continues to meet criteria for inpatient psychiatric admission for symptom stabilization and safety order Tegretol level and CBC ,increase Tegretol to 600 mg a day instead of 400 mg continue Abilify 30 mg HS ,he received 400 mg IM Abilify Maintaina on 08/17, continue Vistaril 100 mg HS,PRN Geodon for agitation,add PRN low dose of Seroquel for insomnia, ,encourage participation in group,SW on board for post-discharge plan
[2020-08-19 09:21] LABS: HCT 45.1 % (39.0-53.0); HGB 15.2 gm/dL (13.0-17.5); MCH 33.1 pg (25.0-35.0); MCHC 33.7 g/dL (31.0-37.0); MCV 98.1 fL (80.0-100.0); Mean Platelet Volume 7.2; Platelet Count 225 k/uL (150-450); RDW 12.1 % (11.5-15.5); WBC 4.7 k/uL (3.8-10.6)
[2020-08-19] MEDS: NICOTINE 14MG/24HR PATCH TRANSDERM SCH ×2 (09:29→17:15)
[2020-08-19] MEDS: MELATONIN 3 MG TABLET PO SCH (20:06)
[2020-08-19] MEDS: ARIPiprazole 15 MG TAB PO SCH (20:07)
[2020-08-19] MEDS: hydrOXYzine pamoate 25 MG CAP PO SCH (20:07)
[2020-08-19] MEDS: carBAMazepine 400 MG TAB.ER.12H PO SCH (20:08)
[2020-08-20 07:12] VITALS: RESP 16
[2020-08-20] MEDS: NICOTINE 14MG/24HR PATCH TRANSDERM SCH ×2 (08:49→15:11)
--- NOTE | 2020-08-20 13:39 | P.PN ---
Subjective Progress Note Date: 08/20/20 Principal diagnosis: Schizoaffective disorder Subjective patient said he slept a little better last night but only for 5 hours. He is that when he used a high dose of Seroquel he slept well but he can take that and the time release Abilify.(He had a shot of Abilify maintaina on the and he is still taking the pills although the shot B should be starting to kick in. The patient suggested Y not stop that Abilify pills and replace that with more Seroquel at night for sleep) Objective: Groups the patient been attending groups is concrete but he participates well Staff report patient is oriented to person place time and circumstance he denies any hallucinations or delusions suicidal ideas or homicidal ideas he interacts well with others takes good care of himself appears to be calm Objective: Patient is kind of flat perhaps from the Abilify good eye contact cooperative serious gait and station normal excellent self care no signs of psychotic distractions no irritability or tearfulness. Assessment is important for the patient to be sleeping well he is going to do well after discharge Plan: Discontinue Abilify oral and give him 300 of Seroquel at night for sleep discontinue when necessary Geodon to avoid the possibility of neuroleptic syndrome. Objective - Vital Signs Vital signs: Vital Signs Temp 97.9 F 08/20/20 06:40 Pulse 78 08/20/20 06:40 Resp 16 08/20/20 06:40 BP 101/58 08/20/20 06:40 Pulse Ox 100 08/16/20 07:19 - Labs CBC & Chem 7: 08/19/20 08:57 08/10/20 08:53
[2020-08-20] MEDS: MELATONIN 3 MG TABLET PO SCH (20:04)
[2020-08-20] MEDS: hydrOXYzine pamoate 25 MG CAP PO SCH (20:04)
[2020-08-20] MEDS: QUEtiapine 100 MG TAB PO SCH (20:04)
[2020-08-20] MEDS: carBAMazepine 400 MG TAB.ER.12H PO SCH (20:05)
[2020-08-21 07:15] VITALS: TEMP 97.8
[2020-08-21] MEDS: NICOTINE 14MG/24HR PATCH TRANSDERM SCH (10:00)
--- NOTE | 2020-08-21 11:18 | P.PN ---
Subjective Progress Note Date: 08/21/20 Principal diagnosis: Schizoaffective disorder Subjective: The patient says that he does best with some Seroquel in the morning as well as some at night and says it does not make him too sleepy that he did sleep better last night on the 300 of Seroquel does not have any akathisia is not ravenously hungry. He says he got to sleep slept for about 45 hours and was up for a couple hours and then able to sleep again. Objective: Vital signs temperature 97.8 heart rate 92 respirations 16 blood pressure 143/80 Labs: Nothing new Groups patient attends needs redirection and sometimes gets tense and has to wander out early Staff report is that the patient has adequate hygiene tends to be quiet and keep to himself denies suicidal or homicidal or psychotic symptoms and seems oriented Mental status exam: The patient asked to be seen wanting an increase in the Seroquel to help him during the day and assures me that it will not make him too sleepy. Affect is somewhat flat good eye contact came in station normal psychomotor activity is somewhat decreased is not tearful not aggressive no signs of responding to voices Assessment doing somewhat better still very anxious rambling and unfocused and needs hospitalization for safety and further adjustment on medicine Plan: At 200 of Seroquel now and then each morning Objective - Vital Signs Vital signs: Vital Signs Temp 97.8 F 08/21/20 06:51 Pulse 92 08/21/20 06:51 Resp 16 08/21/20 06:51 BP 143/80 08/21/20 06:51 Pulse Ox 100 08/16/20 07:19 - Labs CBC & Chem 7: 08/19/20 08:57 08/10/20 08:53
[2020-08-21] MEDS ORDERED: QUEtiapine 200 MG TAB PO SCH (11:30)
[2020-08-21] MEDS: carBAMazepine 400 MG TAB.ER.12H PO SCH (20:08)
[2020-08-21] MEDS: QUEtiapine 100 MG TAB PO SCH (20:08)
[2020-08-21] MEDS: MELATONIN 3 MG TABLET PO SCH (20:08)
[2020-08-21] MEDS: hydrOXYzine pamoate 25 MG CAP PO SCH (20:08)
[2020-08-22 07:15] VITALS: BP 129/69; PULSE 104
[2020-08-22] MEDS ORDERED: QUEtiapine 100 MG TAB PO PRN (08:46)
[2020-08-22] MEDS ORDERED: hydrOXYzine pamoate 25 MG CAP PO PRN (08:48)
[2020-08-22] MEDS: NICOTINE 14MG/24HR PATCH TRANSDERM SCH (08:53)
[2020-08-22] MEDS ORDERED: QUEtiapine 50 MG TAB PO PRN (10:53)
[2020-08-22] MEDS ORDERED: ARIPiprazole 15 MG TAB PO SCH (21:00)
--- NOTE | 2020-08-23 01:01 | DS ---
DISCHARGE SUMMARY DATE OF ADMISSION: August 09, 2020 DATE OF DISCHARGE: August 22, 2020. MEDICAL CONSULTATION: for H and P and medical management. DISCHARGE DIAGNOSES: 1. Schizoaffective disorder, bipolar type. 2. Alcohol use disorder. 3. Cannabis use disorder. HISTORY OF PRESENT ILLNESS: The patient is a 25 -year-old, single male who is currently on social security disability for his mental illness and he is living with his parents. The patient is his own guardian. The patient was admitted on involuntary basis with a petition filed by his sister saying that the patient refusing to take his medication. He does stay up all the night playing piano. He stated that no one can eat animals because they have feelings. Also he stated that no one cut plants or grass because they have feelings. At the time of the admission, he denied any allegation. He was supposed to be on Latuda, Seroquel in addition to Xanax 1 mg 3 times a day. PAST PSYCHIATRIC HISTORY: This is his 3rd psych hospitalization as in 2017 he had 2 inpatient, but it seems that he has poor compliance with oral medication. CHEMICAL DEPENDENCY HISTORY: It is extensive history, however, the patient minimizing this. He stated that he has been drinking on a regular basis, even he was arrested for drunk driving tickets in November of this year and he did spend 1 night in care home and currently has a suspended license, but he stated that currently he is using marijuana on and off and in addition that he using craton. The patient used to do much from cocaine, methamphetamine, prescription medication including pain medication or Xanax. Also, he used to inhale industrial glue. For complete history and physical, please refer to my evaluation. HOSPITAL COURSE: The patient was admitted on involuntary basis. He was refusing any medication. He was lying in bed most of the daytime, very paranoid, suspicious, resistant to talk to anyone. I did discuss with him that he need to be on long-acting injection to assure his compliance. However, he was very resistant initially saying that he wanted to go on Seroquel to take it as prescribed, but based on his past history that he has been having poor compliance with oral medication, I told him that we will go with the Abilify oral, then after he will sign the deferral, will transition to long-acting Abilify. The patient reluctantly agreed with the plan, especially after he did sign the deferral on August 17. I did give him Abilify 30 mg at bedtime and he received injection of 400 mg Abilify Maintena on August 17. He was always complaining of having high anxiety and he was requesting Ativan at least 2-3 times a day, so due to his long history of addiction, I discontinued the Ativan and I did give him Vistaril as needed for anxiety. He was complaining of having insomnia and I did add Remeron at bedtime. However, he stated that he did have restless feeling and trouble sleeping at night and his mind was racing. In one-to-one patient talked about having a manic episode in the past and when he is manic, "I cannot sleep at night and have a lot of creative power in my mind." So he did agree to start Tegretol 200 twice a day and the level of Tegretol on 200 twice a day was 3.2. CBC with diff normal. So, Tegretol was increased to 200 in the morning and 400 at bedtime to stabilize his mood. As he was complaining of initial insomnia, melatonin and Vistaril were added for his sleep. On the weekend on August 20 the patient was seen by Dr. Mathew as cross-coverage and he was able to convince Dr. Mathew to discontinue oral Abilify, put him on Seroquel 200 in the morning and 300 mg at bedtime, and he stated that he does not like to be on an injection. However, when I came back on August 22, I told him that part of the deferral treatment that he needs to be on long-acting injection to assure his compliance. The patient did agree. As he was always complaining of having very high anxiety and was seeking benzodiazepine, but he was directed regarding this habit forming medication and he did agree to have Seroquel as needed for anxiety. The patient for the last 4 or 5 days he was attending group therapy. He was not verbalizing any delusional thinking, paranoia, or denied any suicidal or homicidal ideation. As I mentioned before, the only complaint he was having bout of anxiety that "the only thing helping my anxiety is Xanax or marijuana." At the time of the discharge, patient denied any suicidal or homicidal ideation. Denied having any depression. No hopeless feeling. He denied any side effects from medication and he stated that he is willing to go to outpatient treatment. MENTAL STATUS EXAMINATION: At the time of the discharge, the patient appears his stated age. Fair grooming. No psychomotor agitation. Normal gait. Cooperative. Fair eye contact. Stated mood anxious. Affect is constricted. He denied any suicidal or homicidal ideation. He denied any delusional thinking. He denied any auditory or visual hallucination. He is alert, oriented x3. Insight and judgment are fair. FINAL DIAGNOSES: 1. Schizoaffective disorder, bipolar type. 2. Alcohol and cannabis use disorder. 3. History of meth, cocaine, sedative hypnotic use disorder. PLAN: Today patient will be discharged to outpatient [facility] for followup. The patient was given 1 Abilify Maintena 400 mg IM, it is due on September 16. The patient to continue on Abilify 30 mg for another 10 days, then discontinue. The patient was given a prescription for Tegretol 200 mg in the morning and 400 mg at bedtime, melatonin 6 mg at bedtime for insomnia, Vistaril 100 mg at bedtime for insomnia. I did give him for his anxiety, Vistaril 50 mg every 8 hour as needed for anxiety #21 capsule in addition to Seroquel 50 mg twice a day as needed for 14 days for anxiety, I did explain to him the drug interaction to combine between 2 antipsychotics and that is why I do not prefer that he will use Seroquel for anxiety, but I told him to use hydroxyzine, to avoid any alcohol use. Avoid any prescription medication, pain medication, or sedative hypnotic. At the time of the discharge, the patient is not an imminent threat to hurt himself or any other. Patient has chronic illness with limited insight to his condition and also limited insight to his polysubstance use. The patient was counseled on the need for medication compliance and appropriate followup at his mental health and also with the primary care for any medical issue. The patient verbalized understanding and agreed. lime kiln worker helper to assist the patient in to call to arrange intake appointment at [facility]. The patient was counseled to abstain from any recreational drugs and marijuana and alcohol and he was educated on the adverse effect of this illicit drug on his physical and mental health. He verbalizes understanding and he did agree. The patient was instructed to return to the hospital or seek immediate treatment if the symptoms recur. Prognosis guarded due to poor compliance in addition to his substance use disorder. MMODL / IJN: [id number] /
== END 2020-08-22 13:31 | disposition home or self-care (01) | DRG 885 ==
LOC: EC 12:10 → 3MHU 18:18
PROVIDERS: ADMIT Psychiatry & Neurology Psychiatry; ATTEND Psychiatry & Neurology Psychiatry
DX: F25.0 Schizoaffective disorder, bipolar type (principal); F10.10 Alcohol abuse, uncomplicated; Z91.128 Patient's intentional underdosing of medication regimen for other reason; F12.10 Cannabis abuse, uncomplicated; F14.11 Cocaine abuse, in remission; F15.11 Other stimulant abuse, in remission; F16.11 Hallucinogen abuse, in remission; F13.11 Sedative, hypnotic or anxiolytic abuse, in remission; F41.9 Anxiety disorder, unspecified; T43.506A Underdosing of unspecified antipsychotics and neuroleptics, initial encounter; F51.04 Psychophysiologic insomnia; J45.20 Mild intermittent asthma, uncomplicated; F17.290 Nicotine dependence, other tobacco product, uncomplicated; Z71.6 Tobacco abuse counseling; Z79.899 Other long term (current) drug therapy; Z81.8 Family history of other mental and behavioral disorders
CPT/HCPCS: 80053; 80061; 80156; 80306; 82075; 83036; 84443; 85025; 85027; 99285

== ENCOUNTER → 2020-11-30 | Outpatient (CLI) | payer OTHER ==
[2020-11-30 16:08] LABS: Basophils % (A) 1 %; Eosinophils # (A) 0.1 k/uL (0-0.7); Eosinophils % (A) 2 %; HCT 48.7 % (39.0-53.0); HGB 16.9 gm/dL (13.0-17.5); Lymphocytes # (A) 1.6 k/uL (1.0-4.8); Lymphocytes % (A) 29 %; MCH 34.5 pg (25.0-35.0); MCHC 34.6 g/dL (31.0-37.0); MCV 99.7 fL (80.0-100.0); Monocytes # (A) 0.4 k/uL (0-1.0); Monocytes % (A) 6 %; Neutrophils # (A) 3.5 k/uL (1.3-7.7); Neutrophils % (A) 62 %; Platelet Count 274 k/uL (150-450); RBC 4.88 m/uL (4.30-5.90); RDW 12.3 % (11.5-15.5); WBC 5.7 k/uL (3.8-10.6)
[2020-12-01 00:33] LABS: Hemoglobin A1C 5.2 % (4.0-6.0)
[2020-12-01 01:28] LABS: African American GFR (CKD) 109.1 (60.0-200.0); Albumin 4.6 g/dL (3.80-4.90); Albumin/Globulin Ratio 2.3 (1.60-3.17); BUN/Creat Ratio 18.18 Ratio (12.00-20.00); Calcium 9.5 mg/dL (8.7-10.3); Chol/HDL Ratio 3.26; Non-African American GFR(CKD) 94.1 (60.0-200.0); Potassium 4.6 mmol/L (3.5-5.5); Total Bilirubin 0.4 mg/dL (0.2-1.2); Total Protein 6.6 g/dL (6.2-8.2)
[2020-12-01 01:35] LABS: T4, Free (Free Thyroxine) 1.1 ng/dL (0.80-1.80)
[2020-12-01 02:13] LABS: Carbamazepine (Tegretol) 3.8 ug/mL (4.0-12.0)
== END | disposition home or self-care (01) ==
LOC: LABWHC1 15:43
PROVIDERS: ATTEND Nurse Practitioner Psychiatric/Mental Health
DX: F41.9 Anxiety disorder, unspecified (principal); F25.0 Schizoaffective disorder, bipolar type
CPT/HCPCS: 36415; 80053; 80061; 80156; 83036; 84439; 84443; 84481; 85025

== ENCOUNTER 2022-02-03 13:55 | Inpatient (IN) | payer MEDICARE, MEDICAID ==
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
[2022-02-03] MEDS ORDERED: ALPRAZolam 1 MG TAB PO STA (16:30)
[2022-02-03] MEDS ORDERED: MAG HYDROX/AL HYDROX/SIMETH 30 ML CUP PO PRN (17:27)
[2022-02-03] MEDS ORDERED: MAGNESIUM HYDROXIDE 2,400 MG/10 ML CUP PO PRN (17:27)
[2022-02-03] MEDS ORDERED: ACETAMINOPHEN TAB 325 MG TAB PO PRN (17:27)
[2022-02-03] MEDS ORDERED: HALOPERIDOL LACTATE 5 MG/ML 1 ML VIAL IM PRN (17:27)
[2022-02-03] MEDS ORDERED: LORazepam 2 MG/ML INJ IM PRN (17:29)
[2022-02-03] MEDS ORDERED: ALBUTEROL HFA INHALER INHALATION PRN (17:30)
[2022-02-03] MEDS: QUEtiapine 50 MG TAB PO SCH (18:40)
--- NOTE | 2022-02-04 01:31 | P.PN ---
Progress Note - Text Progress Note Date: 02/04/22 Notified of the admission. Patient currently sleeping and not appropriate for evaluation.
[2022-02-04] MEDS: LORazepam 1 MG TAB PO PRN ×2 (06:19→15:51)
[2022-02-04] MEDS: QUEtiapine 50 MG TAB PO SCH (08:59)
[2022-02-04] MEDS ORDERED: NICOTINE 14MG/24HR PATCH TRANSDERM SCH (09:00)
[2022-02-04] MEDS ORDERED: QUEtiapine 50 MG TAB PO PRN (15:10)
[2022-02-04] MEDS ORDERED: QUEtiapine 50 MG TAB PO STA (15:12)
[2022-02-04] MEDS: haloperidoL 5 MG TAB PO PRN (15:51)
[2022-02-04] MEDS: NICOTINE GUM (POLACRILEX) 2 MG GUM BUCCAL PRN (16:29)
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
[2022-02-04] MEDS: QUEtiapine 100 MG TAB PO SCH (21:51)
--- NOTE | 2022-02-04 23:11 | P.PN ---
Progress Note - Text Progress Note Date: 02/04/22 The patient refused to be seen or evaluated. Will attempt again tomorrow.
[2022-02-05] MEDS: QUEtiapine 100 MG TAB PO SCH ×3 (01:58→20:30)
[2022-02-05] MEDS: LORazepam 1 MG TAB PO PRN ×2 (01:58→21:37)
[2022-02-05] MEDS: NICOTINE GUM (POLACRILEX) 2 MG GUM BUCCAL PRN ×4 (07:52→21:39)
[2022-02-05 10:25] LABS: Basophils % (A) 0 %; Eosinophils # (A) 0.1 k/uL (0-0.7); Eosinophils % (A) 1 %; HCT 45.9 % (39.0-53.0); HGB 15.5 gm/dL (13.0-17.5); Lymphocytes # (A) 0.8 k/uL (1.0-4.8); Lymphocytes % (A) 13 %; MCH 34.1 pg (25.0-35.0); MCHC 33.9 g/dL (31.0-37.0); MCV 100.7 fL (80.0-100.0); Mean Platelet Volume 7.8; Monocytes # (A) 0.4 k/uL (0-1.0); Monocytes % (A) 6 %; Neutrophils # (A) 5.1 k/uL (1.3-7.7); Neutrophils % (A) 80 %; Platelet Count 229 k/uL (150-450); RBC 4.56 m/uL (4.30-5.90); WBC 6.4 k/uL (3.8-10.6)
[2022-02-05 10:34] LABS: ALT 21 U/L (4-49); AST 26 U/L (17-59); African American GFR (CKD) >90 (>60 ml/min/1.73 sqM); Albumin 4.2 g/dL (3.5-5.0); Alkaline Phosphatase 52 U/L (38-126); Anion Gap 5 mmol/L; Blood Urea Nitrogen 11 mg/dL (9-20); Carbon Dioxide 26 mmol/L (22-30); Chloride 106 mmol/L (98-107); Glucose 127 mg/dL (74-99); Non-African American GFR(CKD) >90 (>60 ml/min/1.73 sqM); Potassium 4.3 mmol/L (3.5-5.1); Sodium 137 mmol/L (137-145); Total Bilirubin 1.4 mg/dL (0.2-1.3); Total Protein 6.8 g/dL (6.3-8.2)
[2022-02-05 15:57] LABS: Chol/HDL Ratio 2.87 Ratio; LDL Cholesterol,Calculated 59.1 mg/dL (0.0-131.0)
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
[2022-02-05] MEDS: haloperidoL 5 MG TAB PO PRN (21:37)
[2022-02-06] MEDS: LORazepam 1 MG TAB PO PRN ×3 (07:46→22:22)
[2022-02-06] MEDS: NICOTINE GUM (POLACRILEX) 2 MG GUM BUCCAL PRN ×3 (07:46→19:59)
[2022-02-06] MEDS: haloperidoL 5 MG TAB PO PRN ×2 (07:46→15:23)
[2022-02-06] MEDS: QUEtiapine 100 MG TAB PO SCH ×2 (07:46→20:26)
--- NOTE | 2022-02-06 14:56 | P.DS ---
Providers Date of admission: 02/03/22 17:18 Expected date of discharge: 02/07/22 Attending physician: Romaine Bermudez MD Discharge Summary by Isidoro ROBERTS MD [facility] physician/Psychiatrist The pateint was admtited over the weekend after he was brought to be EMERG. by his parents . With a history of bipolar disorder and likely comorbid ADHD, he has been relatively unstable in terms of his mood swings. He was started on Depot Abilify: aristada every 2 months. He last was adminsitered around 30 January 2022. He tolerated the medication with no EPS: no dystonia , no tardive dyskinesia. However, he was found to have problem with sleep: "having been up the whole night". Restlessness and sleep disturbances, the prodrome symptom of his relapse of his bipolar disorder, created some concern. However, he rearded his hyper-activity to be related to his under-treated ADHD: he was on Adderall with equivocal outocme. Earlier, he calmed that his attention span problem at school was related to his ADHD. In veiw of the abuse potentia of psychotimulant, he was refused to have access to Adderalll for his ADHD. His intra-familial conflict contnued to escalate; he attributed to his father diagnosis of Dementia: I have yet o correoborate his description of the family dynamics. He did not want to stay and apparoched me at least a fews times demanding for early discharge. He did not see himself nor chose to be incurring harm to himself or to others. He reassureed me that he has definite plans of moving out of his parents' hourse within the coming week. When he was asked about ADHD, I explained to him alternative Rx were available for improving his ADHD 1. bupropion 2. strattera non-stimulant drug 3. clonidine 4. intuniv He was unweilling to consdier seriously the alternative. At the [facility], he was seen as superficial cooperative with the overall treatment plan. His defiant behavior was evident on the unit. He often engaged the staff and his co-patients in challenging situations and was tthe dverge of major behavioral outburst on February 05, 2022. He asksed to be reassessed again today after he was on 1:1 observation level earlier on February 05. I explaiend to him that 82-hru observation period would be highly recommended to assess his risk level for self-harm and harm to others. He was seen on February 05, 2022 wanting to be discharged. He dismissed the strattera. I recommend him to be on a higher dosdage of seroquel 100 mg o bid. He agreed superficially and order to be written for him to be discharged on February 06, 2022. While his overall mental status has somewhat improved, he continued to be irritable at times but lacking any psychotic features of hallucinations or delusions. He did not presesnt any risk of self-harm or harm to others. His cognition remained intact with marginal insight into his psychiatric condition. discharge disgnosis: bipolar disorder, most recnetl mixed episode. ADHD comorbid disorder adult persisting subtype follow up: to be seen at [facility] after discharge. Consults: 02/04/22 01:28 Consult Physician Routine Consulting Provider: [facility] Consult Reason/Comments: H&P Do you want consulting provider notified?: Yes Primary care physician: Anthony Delcid Patient Condition at Discharge: Stable Plan - Discharge Summary Discharge Rx Participant: No New Discharge Prescriptions: No Action QUEtiapine [SEROquel] 50 mg PO BID PRN 14 Days tab PRN Reason: Anxiety Aripiprazole Lauroxil [Aristada] 1,064 mg IM Q42D Albuterol Inhaler [Ventolin Hfa Inhaler] 2 puff INHALATION RT-QID PRN PRN Reason: Shortness Of Breath Or Wheezing Albuterol Nebulized [Ventolin Nebulized] 2.5 mg INHALATION RT-Q6H PRN PRN Reason: Shortness Of Breath Discharge Medication List QUEtiapine [SEROquel] 50 mg PO BID PRN 14 Days tab 08/22/20 [Rx] Albuterol Inhaler [Ventolin Hfa Inhaler] 2 puff INHALATION RT-QID PRN 02/03/22 [History] Albuterol Nebulized [Ventolin Nebulized] 2.5 mg INHALATION RT-Q6H PRN 02/03/22 [History] Aripiprazole Lauroxil [Aristada] 1,064 mg IM Q42D 02/03/22 [History] Follow up Appointment(s)/Referral(s): Delcid,Anthony, DO [Primary Care Provider] - 1-2 days Activity/Diet/Wound Care/Special Instructions: Activity and diet as tolerated. Avoid the use of street drugs and alcohol. Take all medications as prescribed. When you are in need of refills on your medications please contact your medical provider and/or outpatient psychiatrist to have this done. Please go to scheduled outpatient appointment for aftercare treatment. If symptoms return or become worse, call the crisis line at and/or go to the nearest emergency room for evaluation
[2022-02-07] MEDS: haloperidoL 5 MG TAB PO PRN (02:01)
[2022-02-07] MEDS: LORazepam 1 MG TAB PO PRN ×2 (02:01→07:51)
[2022-02-07 06:46] VITALS: BP 128/66; PULSE 107; RESP 16; TEMP 97.1
[2022-02-07] MEDS: QUEtiapine 100 MG TAB PO SCH (07:49)
[2022-02-07] MEDS: NICOTINE GUM (POLACRILEX) 2 MG GUM BUCCAL PRN (14:32)
--- NOTE | 2022-02-07 15:27 | P.PN ---
Subjective Progress Note Date: 02/08/22 Principal diagnosis: PRogress note"|He was seen prior to discharge. Nursing note reported he seemed to be responding to INternal stimuli". singling out loud for no contextual drivi ng force.When he was seen again, he talked about his interest in RAP music and rehearsed his self-composed song but could stop with in 5 min. Overlall irritably has resovled somewhat. He denied any hallucinatioins. He would be retruning to live with his parents x 1 week before moving out to live with his freind. He was interested to seek employment in the neighborhood.He was reinforced the need for continued medicaition. MSE; less labile , slight irritability, intrusive and demanding at times, no pressures of speech, no grandiose delusions or ideas of reference. Cogn: oreinted x 3 sphres, insight and jugement has improved. Diag; Bipolar disorder Type II ADHD Rx; He did not want new Rx for his ADHD. HE would continue with Depot Aristada q 2month Seroquel 100 mg x2 po qhs Objective - Vital Signs Vital signs: Vital Signs Temp 97.1 F L 02/07/22 06:23 Pulse 107 H 02/07/22 06:23 Resp 16 02/07/22 06:23 BP 128/66 02/07/22 06:23 Pulse Ox 99 02/06/22 06:49 - Labs CBC & Chem 7: 02/05/22 09:48 02/05/22 09:48
== END 2022-02-07 15:20 | disposition home or self-care (01) | DRG 885 ==
LOC: EC 13:55 → 3MHU 17:18
PROVIDERS: ADMIT Psychiatry & Neurology Psychiatry; ATTEND Psychiatry & Neurology Psychiatry
DX: F31.81 Bipolar II disorder (principal); F20.9 Schizophrenia, unspecified; F17.210 Nicotine dependence, cigarettes, uncomplicated; F90.9 Attention-deficit hyperactivity disorder, unspecified type; J45.909 Unspecified asthma, uncomplicated; Z63.9 Problem related to primary support group, unspecified; Z20.822 Contact with and (suspected) exposure to COVID-19
CPT/HCPCS: 80053; 80061; 82075; 83036; 84443; 85025; 87635; 99285

== ENCOUNTER 2022-08-03 17:34 | Inpatient (IN) | payer MEDICARE, OTHER ==
--- NOTE | 2022-08-03 18:06 | ED ---
General Adult HPI - General Chief complaint: Psychiatric Symptoms Stated complaint: petition Time Seen by Provider: 08/03/22 17:51 Source: patient Mode of arrival: ambulatory Limitations: no limitations - History of Present Illness Initial comments: Dictation was produced using Word[employer] dictation software. please excuse any grammatical, word or spelling errors. Chief Complaint: 27-year-old male presents with mom enforcement for psychiatric evaluation History of Present Illness: 27-year-old male with past nuchal history of psychiatric illness. Parents fill out a petition for EPS evaluation. Patient apparently has a history of bipolar disease and schizophrenia. He does have established care with [facility] and takes psychiatric medications. Patient states he does not like how he feels with certain medications because it produces great activity. According to the edition patient has been having psychotic outbursts. Patient states that he states these things while he is playing video games. Denies any homicidal or suicidal ideation. The ROS documented in this emergency department record has been reviewed and confirmed by me. Those systems with pertinent positive or negative responses have been documented in the HPI. All other systems are other negative and/or noncontributory. PHYSICAL EXAM: General Impression: Alert and oriented x3, not in acute distress HEENT: Normocephalic atraumatic, extra-ocular movements intact, pupils equal and reactive to light bilaterally, mucous membranes moist. Cardiovascular: Heart regular rate and rhythm Chest: Able to complete full sentences, no retractions, no tachypnea Musculoskeletal: Pulses present and equal in all extremities, no peripheral edema Motor: no focal deficits noted Neurological: CN II-XII grossly intact, no focal motor or sensory deficits noted Skin: Intact with no visualized rashes Psych: Tangential speech, flight of thoughts ED course: 27-year-old male presents emergency department for EPS evaluation. Vital signs upon arrival are within acceptable limits. Patient evaluated by EPS and will admit patient for inpatient psychiatric care. - Related Data Home Medications Medication Instructions Recorded Confirmed ARIPiprazole IM SYRINGE [Abilify 400 mg IM Q28D 08/03/22 08/03/22 Maintena Syringe] OLANZapine [ZyPREXA] 10 mg PO HS 08/03/22 08/03/22 Allergies Allergy/AdvReac Type Severity Reaction Status Date / Time No Known Allergies Allergy Verified 08/03/22 19:16 Review of Systems ROS Statement: Those systems with pertinent positive or pertinent negative responses have been documented in the HPI. ROS Other: All systems not noted in ROS Statement are negative. Past Medical History Past Medical History: No Reported History History of Any Multi-Drug Resistant Organisms: None Reported Past Surgical History: No Surgical Hx Reported Past Psychological History: Anxiety, Bipolar, Depression, Schizophrenia Smoking Status: Current every day smoker Past Alcohol Use History: None Reported Past Drug Use History: None Reported - Past Family History Father Additional Family Medical History / Comment(s): Father is alive at age 52 with no major medical problems. Mother Additional Family Medical History / Comment(s): Mother is alive at age 52 with no major medical problems. Brother(s) Additional Family Medical History / Comment(s): Patient has one half-brother and one half-sister with no major medical problems. General Exam Limitations: no limitations Course Vital Signs 08/03/22 08/03/22 17:46 18:11 Temperature 99.1 F 99.7 F H Pulse Rate 129 H 130 H Respiratory 22 18 Rate Blood Pressure 136/84 153/94 O2 Sat by Pulse 98 98 Oximetry Medical Decision Making - Lab Data Lab Results 08/03/22 Range/Units 18:54 Urine Opiates Screen Not Detected (NotDetected) Ur Oxycodone Screen Not Detected (NotDetected) Urine Methadone Screen Not Detected (NotDetected) Ur Propoxyphene Screen Not Detected (NotDetected) Ur Barbiturates Screen Not Detected (NotDetected) U Tricyclic Antidepress Not Detected (NotDetected) Ur Phencyclidine Scrn Not Detected (NotDetected) Ur Amphetamines Screen Detected H (NotDetected) U Methamphetamines Scrn Detected H (NotDetected) U Benzodiazepines Scrn Detected H (NotDetected) Urine Cocaine Screen Not Detected (NotDetected) U Marijuana (THC) Screen Detected H (NotDetected) Disposition Clinical Impression: Psychosis Disposition: ADMITTED IP TO THIS [facility] Condition: Fair Referrals: None,Stated [Primary Care Provider] - 1-2 days Decision Time: 19:50
[2022-08-03 19:12] LABS: Amphetamine Screen,Urine Detected (NotDetected); Barbiturate Screen,Urine Not Detected (NotDetected); Benzodiazepines Screen,Urine Detected (NotDetected); Cocaine Screen,Urine Not Detected (NotDetected); Methadone Screen, Urine Not Detected (NotDetected); Opiate Screen,Urine Not Detected (NotDetected); Oxycodone Screen, Urine Not Detected (NotDetected); Phencyclidine Screen,Urine Not Detected (NotDetected); Tricyclic Antidepressant,Urine Not Detected (NotDetected); Urn Cannabinoid Scrn Detected (NotDetected)
[2022-08-03] MEDS ORDERED: MAGNESIUM HYDROXIDE 2,400 MG/10 ML CUP PO PRN (21:07)
[2022-08-03] MEDS ORDERED: ACETAMINOPHEN TAB 325 MG TAB PO PRN (21:07)
[2022-08-03] MEDS ORDERED: HALOPERIDOL LACTATE 5 MG/ML 1 ML VIAL IM PRN (21:07)
[2022-08-03] MEDS ORDERED: MAG HYDROX/AL HYDROX/SIMETH 30 ML CUP PO PRN (21:07)
[2022-08-03] MEDS ORDERED: LORazepam 2 MG/ML INJ IM PRN (21:10)
[2022-08-03] MEDS: LORazepam 1 MG TAB PO PRN (21:34)
[2022-08-03] MEDS: haloperidoL 5 MG TAB PO PRN (23:44)
[2022-08-04] MEDS ORDERED: ARIPiprazole 10 MG TAB PO SCH (09:00)
[2022-08-04] MEDS: NICOTINE 14MG/24HR PATCH TRANSDERM SCH (10:02)
[2022-08-04 11:25] LABS: Basophils % (A) 1 %; Eosinophils % (A) 1 %; HCT 52.2 % (39.0-53.0); HGB 17.1 gm/dL (13.0-17.5); Lymphocytes # (A) 1.2 k/uL (1.0-4.8); Lymphocytes % (A) 18 %; MCH 32.5 pg (25.0-35.0); MCHC 32.7 g/dL (31.0-37.0); MCV 99.5 fL (80.0-100.0); Mean Platelet Volume 7.3; Monocytes # (A) 0.4 k/uL (0-1.0); Monocytes % (A) 6 %; Neutrophils % (A) 73 %; Platelet Count 296 k/uL (150-450); RBC 5.25 m/uL (4.30-5.90); RDW 12.3 % (11.5-15.5); WBC 6.8 k/uL (3.8-10.6)
[2022-08-04 11:36] LABS: ALT 27 U/L (4-49); AST 45 U/L (17-59); African American GFR (CKD) >90 (>60 ml/min/1.73 sqM); Albumin 4.7 g/dL (3.5-5.0); Alkaline Phosphatase 73 U/L (38-126); Anion Gap 11 mmol/L; Blood Urea Nitrogen 18 mg/dL (9-20); Calcium 9.8 mg/dL (8.4-10.2); Carbon Dioxide 26 mmol/L (22-30); Chloride 101 mmol/L (98-107); Glucose 90 mg/dL (74-99); Non-African American GFR(CKD) >90 (>60 ml/min/1.73 sqM); Potassium 4.9 mmol/L (3.5-5.1); Sodium 138 mmol/L (137-145); Total Bilirubin 2.1 mg/dL (0.2-1.3); Total Protein 7.2 g/dL (6.3-8.2)
[2022-08-04 17:08] LABS: Chol/HDL Ratio 2.62 Ratio; LDL Cholesterol,Calculated 95.4 mg/dL (0.0-131.0); VLDL Calculation 17.66 mg/dL (5.00-40.00)
--- NOTE | 2022-08-04 18:57 | P.HP ---
Psychiatric H&P - . H&P Date: 08/04/22 History & Physical: IDENTIFYING DATA: Patient is a 27 year old male with history of bipolar disorder with psychosis. HPI: Patient presented to the hospital on 08/03/2022 on a petition by his parents and certification for severe agitation, bizarre behaviors, psychosis and noncompliance with medications. His insight is poor and he reports he was just playing video games. He is attending to internal stimuli during our assessment and mumbles nonsensical statements to himself and stares oddly. He is guarded on assessment and a poor historian. He denies any suicidal or homicidal ideation, intent or plan. Patient claims he is not having any auditory or visual hallucinations, but he is overtly attending to internal stimuli. He claims he is sleeping well. His speech is somewhat pressured. His urine drug screen in the ED was positive for ampheta mines/methamphetamines, cannabis and benzodiazepines. He minimizes his drug use. He denies using meth, states he was using some old Adderall that he claims are left over from when he was 15. He admits to using marijuana (about one gram daily). When talking about medications, he starts to ramble nonsensically about electricity in his brain and circuits. PAST PSYCHIATRIC HISTORY: Patient states that he was diagnosed with bipolar disorder and schizoaffective disorder. Past medications: Abilify, Invega, Risperdal, Seroquel, [place]. Past psychiatric hospitalizations: This is his fifth hospitalization at [facility] at [facility]. Patient denies any psychiatric outpatient follow-up. Patient denies any history of suicide attempts in the past. PMH: Asthma ALLERGIES: as per EMR CHEMICAL DEPENDENCY HISTORY: as per HPI FAMILY PSYCHIATRIC/SUBSTANCE USE HISTORY: denies SOCIAL HISTORY: Lives with parents No children Unemployed, on disability for mental health MENTAL STATUS EXAM: General Appearance: Patient appears to be stated age, fair poor hygiene and grooming. Behavior: Patient is seated , is not agitated, but stares intensely and talks to himself. Speech: Patient's speech is slightly pressured. Mood/Affect: Patient reports their mood is irritable, affect is congruent, odd and constricted. Suicidality/Homicidality: Patient denies having any homicidal ideation intent or plan. Denies any suicidal ideations intent or plan. Perceptions: +AH, he is overtly attending to internal stimuli and talking to himself Though content: Paranoid delusions Thought process: Derails into rambling delusional thought content Memory and concentration: AOX2, is somewhat confused on the date. Judgment and insight: poor STRENGTHS/WEAKNESSES: strength is that patient is resilient. Weakness is that patient has poor judgment and is impulsive. INTELLECT: Average IMPRESSIONS: Schizoaffective disorder, bipolar type Rule out Bipolar 1 Disorder, manic with psychotic features Cannabis use disorder Stimulant use disorder PLAN: -Patient is admitted under involuntary status to [facility] for stabilization of psychiatric symptoms and safety. Patient has signed adult voluntary form and medication consent and is placed in patient's chart. -Medications: Will start patient on Invega 6 mg QHS for psychosis and mood stabilization, with plan to switch to Invega Sustenna due to problems with compliance. Discontinue Zyprexa and Abilify in favor of Invega. -Ativan and Haldol PRN for agitation/aggression -Started thiamine, MVM for etoh use. -Patient was counselled on substance abuse and desired to cut back on use -Patient was informed of the risks, benefits and side effects of the medication and patient verbally consented to taking the medications. Patient signed med consent form and was placed in chart. -Internal Medicine consult to perform medical evaluation and physical. -NRT - nicotine replacement -SW on board for discharge planning. Encourage patient to participate in groups to work on coping skills. Allergies Allergy/AdvReac Type Severity Reaction Status Date / Time No Known Allergies Allergy Verified 08/03/22 19:16 Vital Signs Temp 97.1 F L 08/04/22 05:55 Pulse 110 H 08/04/22 05:55 Resp 16 08/04/22 05:55 BP 126/85 08/04/22 05:55 Pulse Ox 99 08/04/22 05:55 FiO2 Intake & Output 08/03/22 08/04/22 08/04/22 18:59 06:59 18:59 Weight 81.647 kg 76.657 kg Laboratory Last Values WBC 6.8 k/uL (3.8-10.6) 08/04/22 10:46 RBC 5.25 m/uL (4.30-5.90) 08/04/22 10:46 Hgb 17.1 gm/dL (13.0-17.5) 08/04/22 10:46 Hct 52.2 % (39.0-53.0) 08/04/22 10:46 MCV 99.5 fL (80.0-100.0) 08/04/22 10:46 MCH 32.5 pg (25.0-35.0) 08/04/22 10:46 MCHC 32.7 g/dL (31.0-37.0) 08/04/22 10:46 RDW 12.3 % (11.5-15.5) 08/04/22 10:46 Plt Count 296 k/uL (150-450) 08/04/22 10:46 MPV 7.3 08/04/22 10:46 Neutrophils % 73 % 08/04/22 10:46 Lymphocytes % 18 % 08/04/22 10:46 Monocytes % 6 % 08/04/22 10:46 Eosinophils % 1 % 08/04/22 10:46 Basophils % 1 % 08/04/22 10:46 Neutrophils # 5.0 k/uL (1.3-7.7) 08/04/22 10:46 Lymphocytes # 1.2 k/uL (1.0-4.8) 08/04/22 10:46 Monocytes # 0.4 k/uL (0-1.0) 08/04/22 10:46 Eosinophils # 0.0 k/uL (0-0.7) 08/04/22 10:46 Basophils # 0.0 k/uL (0-0.2) 08/04/22 10:46 Sodium 138 mmol/L (137-145) 08/04/22 10:46 Potassium 4.9 mmol/L (3.5-5.1) 08/04/22 10:46 Chloride 101 mmol/L (98-107) 08/04/22 10:46 Carbon Dioxide 26 mmol/L (22-30) 08/04/22 10:46 Anion Gap 11 mmol/L 08/04/22 10:46 BUN 18 mg/dL (9-20) 08/04/22 10:46 Creatinine 1.09 mg/dL (0.66-1.25) 08/04/22 10:46 Est GFR (CKD-EPI)AfAm >90 (>60 ml/min/1.73 sqM) 08/04/22 10:46 Est GFR (CKD-EPI)NonAf >90 (>60 ml/min/1.73 sqM) 08/04/22 10:46 Glucose 90 mg/dL (74-99) 08/04/22 10:[address] Glu mg/dL 120 08/04/22 10:46 Hemoglobin A1c 5.8 % (0.0-6.0) 08/04/22 10:46 Calcium 9.8 mg/dL (8.4-10.2) 08/04/22 10:46 Total Bilirubin 2.1 mg/dL (0.2-1.3) H 08/04/22 10:46 AST 45 U/L (17-59) 08/04/22 10:46 ALT 27 U/L (4-49) 08/04/22 10:46 Alkaline Phosphatase 73 U/L (38-126) 08/04/22 10:46 Total Protein 7.2 g/dL (6.3-8.2) 08/04/22 10:46 Albumin 4.7 g/dL (3.5-5.0) 08/04/22 10:46 Triglycerides 88.30 mg/dL (0.00-149.00) 08/04/22 10:46 Cholesterol 183.00 mg/dL (0.00-200.00) 08/04/22 10:46 LDL Cholesterol, Calc 95.4 mg/dL (0.0-131.0) 08/04/22 10:46 VLDL Cholesterol, Calc 17.66 mg/dL (5.00-40.00) 08/04/22 10:46 HDL Cholesterol 69.90 mg/dL (40.00-60.00) H 08/04/22 10:46 Cholesterol/HDL Ratio 2.62 Ratio 08/04/22 10:46 TSH 1.440 mIU/L (0.465-4.680) 08/04/22 10:46 Urine Opiates Screen Not Detected (NotDetected) 08/03/22 18:54 Ur Oxycodone Screen Not Detected (NotDetected) 08/03/22 18:54 Urine Methadone Screen Not Detected (NotDetected) 08/03/22 18:54 Ur Propoxyphene Screen Not Detected (NotDetected) 08/03/22 18:54 Ur Barbiturates Screen Not Detected (NotDetected) 08/03/22 18:54 U Tricyclic Antidepress Not Detected (NotDetected) 08/03/22 18:54 Ur Phencyclidine Scrn Not Detected (NotDetected) 08/03/22 18:54 Ur Amphetamines Screen Detected (NotDetected) H 08/03/22 18:54 U Methamphetamines Scrn Detected (NotDetected) H 08/03/22 18:54 U Benzodiazepines Scrn Detected (NotDetected) H 08/03/22 18:54 Urine Cocaine Screen Not Detected (NotDetected) 08/03/22 18:54 U Marijuana (THC) Screen Detected (NotDetected) H 08/03/22 18:54 Coronavirus (PCR) Not Detected (Not Detectd) 08/03/22 20:01 08/04/22 18:15 08/04/22 18:20 08/04/22 18:42
[2022-08-04] MEDS ORDERED: OLANZapine 10 MG TAB PO SCH (21:00)
[2022-08-04] MEDS: PALIPERIDONE 6 MG TAB.ER.24 PO SCH (21:09)
--- NOTE | 2022-08-04 22:40 | P.CONS ---
History of Present Illness - Reason for Consult Consult date: 08/04/22 - History of Present Illness The patient is a 7-year-old male with a PMH of psychiatric illnesses was brought into the emergency room for psychiatric evaluation. The patient was admitted to the mental health unit where he was seen and evaluated. The patient reportedly has established care with [facility] and his parents in for a petition for an EPS evaluation. The patient states that he was trying to seek out help for his AD HD. He also reported a chronic history of asthma for which he uses inhalers 3-4 times a year. Reports using tobacco 1/2 pack per day as well as recreational marijuana use. Denies physical complaints at the time of interview. Denied experiencing chest discomfort, shortness of breath, fever, chills, cough, nausea, vomiting, abdominal pain, diarrhea. Urine toxicology the emergency room was positive for methamphetamine and marijuana as well as benzodiazepines. Review of systems: Pertinent positives and negatives as discussed in HPI, a complete review of systems was performed and all other systems are negative. Physical examination: General: non toxic, no distress, appears at stated age, overweight Derm: no unusual rashes/lesions, no unusual ecchymoses, warm, dry Head: atraumatic, normocephalic, symmetric Eyes: EOMI, no lid lag, anicteric sclera ENT: Nose and ears atraumatic, no thrush, no pharyngeal erythema Neck: trachea midline, supple Mouth: no lip lesion, mucus membranes moist Cardiovascular: S1S2 reg, no murmur, no edema Lungs: CTA bilateral, no rhonchi, no rales , no accessory muscle use Abdominal: soft, nontender to palpation, no guarding Ext: no gross muscle atrophy, no contractures, Neuro: No gross focal neuro deficits noted Psych: Alert, oriented, appropriate affect Assessment/plan Polysubstance abuse including marijuana -Advised on the importance of cessation Mild intermittent asthma -Albuterol when necessary Psychosis with ADHD -As per psychiatry Thank you for allowing us to participate in the care of this patient. We will follow peripherally. Do not hesitate to contact us with questions. Someone can be reached from the [facility] hospitalist group at all hours of the day at [phone]. Past Medical History Past Medical History: No Reported History History of Any Multi-Drug Resistant Organisms: None Reported Past Surgical History: No Surgical Hx Reported Past Anesthesia/Blood Transfusion Reactions: No Reported Reaction Past Psychological History: Anxiety, Bipolar, Depression, Schizophrenia Smoking Status: Current every day smoker Past Alcohol Use History: None Reported Additional Past Alcohol Use History / Comment(s): Patient is a smoker of one pack per day for 7 years. He denies any alcohol use. He does use marijuana on a regular basis. He does not think he has used other street drugs. He is unemployed and single. He does not have any children. Past Drug Use History: None Reported - Past Family History Father Additional Family Medical History / Comment(s): Father is alive at age 52 with no major medical problems. Mother Additional Family Medical History / Comment(s): Mother is alive at age 52 with no major medical problems. Brother(s) Additional Family Medical History / Comment(s): Patient has one half-brother and one half-sister with no major medical problems. Medications and Allergies Home Medications Medication Instructions Recorded Confirmed Type ARIPiprazole IM SYRINGE [Abilify 400 mg IM Q28D 08/03/22 08/03/22 History Maintena Syringe] OLANZapine [ZyPREXA] 10 mg PO HS 08/03/22 08/03/22 History Allergies Allergy/AdvReac Type Severity Reaction Status Date / Time No Known Allergies Allergy Verified 08/03/22 19:16 Physical Exam Vitals: Vital Signs Temp Pulse Resp BP Pulse Ox 08/04/22 05:55 97.1 F L 110 H 16 126/85 99 08/03/22 21:47 97.9 F 100 16 140/78 Intake and Output 08/04/22 08/04/22 08/04/22 06:59 14:59 22:59 Other: Weight 76.657 kg Results CBC & Chem 7: 08/04/22 10:46 08/04/22 10:46 Labs: Abnormal Lab Results - Last 24 Hours (Table) 08/04/22 Range/Units 10:46 Total Bilirubin 2.1 H (0.2-1.3) mg/dL HDL Cholesterol 69.90 H (40.00-60.00) mg/dL
[2022-08-05] MEDS: NICOTINE 14MG/24HR PATCH TRANSDERM SCH (12:39)
--- NOTE | 2022-08-05 15:25 | P.PN ---
Progress Note - Text Progress Note Date: 08/05/22 Interval history: Patient was seen wandering the hallway and was directable and agreeable to speak with singer songwriter. His thought process is becoming more coherent however he continues to express paranoid delusions. Today he states he is not attending groups because he feels are staring at him and giving him awkward looks. His insight and judgment remain poor. At this time, patient denies any suicidal or homicidal ideation intent or plan. He denies any auditory or visual hallucinations when asked, but objectively there is concern he is still attending to internal stimuli. Patient denies any side effects from the medications and has been compliant with meds. Mental status exam: General Appearance: Patient appears to be stated age, fair poor hygiene and grooming. Behavior: Patient is walking in the halls, appears to be attending to internal stimuli. Speech: Patient's speech is improving in rate. Mood/Affect: Patient reports his mood is "good", affect is odd and blunted. Suicidality/Homicidality: Patient denies having any homicidal ideation intent or plan. Denies any suicidal ideation, intent or plan. Perceptions: He denies auditory or visual hallucinations when asked, but he does appear to be attending to internal stimuli. Though content: Paranoid delusions Thought process: Improving, becoming more linear and coherent. Memory and concentration: AOX3, attention is improving Judgment and insight: poor Assessment/Plan: Continue with current diagnosis. Patient continues to meet criteria for inpatient psychiatric admission for symptom stabilization and safety. Invega to 3 mg daily in the morning and 6 mg QHS starting tomorrow for psychosis. Monitor for medication compliance and for any psychotropic medication side effects. Will continue to monitor ongoing response to treatment. Encouraged participation in milieu.
[2022-08-05] MEDS: PALIPERIDONE 6 MG TAB.ER.24 PO SCH (20:43)
[2022-08-06] MEDS: NICOTINE 14MG/24HR PATCH TRANSDERM SCH (08:54)
[2022-08-06] MEDS: PALIPERIDONE 3 MG TAB.ER.24 PO SCH (08:54)
[2022-08-06] MEDS: NICOTINE GUM (POLACRILEX) 2 MG GUM BUCCAL PRN ×3 (16:53→23:19)
[2022-08-06] MEDS: PALIPERIDONE 6 MG TAB.ER.24 PO SCH (20:41)
[2022-08-06] MEDS: LORazepam 1 MG TAB PO PRN (21:35)
[2022-08-06] MEDS: haloperidoL 5 MG TAB PO PRN (21:35)
[2022-08-07] MEDS: PALIPERIDONE 3 MG TAB.ER.24 PO SCH (08:13)
[2022-08-07] MEDS: NICOTINE GUM (POLACRILEX) 2 MG GUM BUCCAL PRN ×4 (08:14→20:10)
[2022-08-07] MEDS: NICOTINE 14MG/24HR PATCH TRANSDERM SCH (09:31)
--- NOTE | 2022-08-07 11:45 | P.PN ---
Progress Note - Text Progress Note Date: 08/06/22 S&O: Patient was seen in rounds. He is fairly calm and cooperative. However he appears somewhat anxious. He has the diagnosis of rule out bipolar disorder, schizoaffective disorder bipolar type cannabis use disorder and stimulant use disorder. Patient said he was on stimulants including Adderall from age 15 until 20 and later on in his early 20s. He said he was doing well on it and it was stopped because he was diagnosed with schizophrenia. He said he may see flashes of lights or things like that at times. He insists that he does not hear voices and his mood has been stable. He also denies any history of being depressed or manic as required to make this diagnosis. However her psychiatric H&P he was agitated engaging in bizarre behavior and psychosis not complying with medications. He said he smokes pot at times since it is legal here in [place]. He insists he does not abuse any other drugs. However his UDS was positive for amphetamine and methamphetamines. He has been taking his medications and denies any adverse effects. This is a white ambulatory male with adequate hygiene. He does not show any psychomotor agitation or retardation. He has large holes on his ear lobes. Has a few tattoos also. His speech is spontaneous relevant and goal-directed. His mood is euthymic and affect is appropriate to the thought content. He denies current hallucinations and delusional thinking suicide and homicide thoughts. His sensorium is clear. A&P: Appears to have psychosis probably secondary to stimulant abuse. Continue current medications and therapies.
--- NOTE | 2022-08-07 11:56 | P.PN ---
Progress Note - Text Progress Note Date: 08/07/22 S&O: Patient was seen in rounds. Today he said he was with his friend who was abusing methamphetamine and he may have given him some math in her Depakote before he came here about 34 days before his admission here. His UDS was positive for amphetamines and methamphetamine. He is still on Invega 3 mg in the morning and 6 mg at night. He feels a little better and appears to be calmer today compared to yesterday. No other issues. He denies any adverse effects from Invega. No behavioral issues in the unit. He was counseled about it and he agreed to discontinue the morning dose of Invega and see how he does. This is a white ambulatory male with adequate hygiene. He is calmer and more cooperative today. He does not show any psychomotor agitation or retardation. Speech is spontaneous and goal-directed. Mood is rather dull and affect is constricted in range. Denies hallucinations delusional thinking suicide and homicide thoughts. He is well oriented with adequate memory concentration and general fund of knowledge. A&P: Discontinue morning dose of Invega continue at bedtime Invega, supervision and therapies. Consider tapering off Invega and restart it if he becomes psychotic.
[2022-08-07] MEDS: PALIPERIDONE 6 MG TAB.ER.24 PO SCH (20:08)
[2022-08-07] MEDS: LORazepam 1 MG TAB PO PRN (20:09)
[2022-08-08] MEDS: NICOTINE 14MG/24HR PATCH TRANSDERM SCH (09:29)
[2022-08-08] MEDS: NICOTINE GUM (POLACRILEX) 2 MG GUM BUCCAL PRN ×4 (10:23→18:30)
--- NOTE | 2022-08-08 12:02 | P.PN ---
Progress Note - Text Progress Note Date: 08/08/22 S&O: Patient was seen in rounds. He was laying down in his room and came to the office for examination. He said he doesn't like to attend the groups since they are all very sick people and he doesn't have anything in common with them. He said they sometimes pour water on his feet and think it is funny. It was suggested that maybe he can stay a few feet away from other people. But he insists he doesn't want to do that. He insists that he does not hear voices and is just tired of being here. I did not see any signs of him to say he is responding to internal stimuli. He has not been bizarre or agitated either. He said he is still planning on returning to live with his parents upon discharge. This is a right ambulatory male with fair to adequate hygiene. He does not show any psychomotor agitation or retardation. His speech is fairly spontaneous short and goal-directed. Mood is rather dull and affect is constricted in range. He insists that he does not hear voices and does not have any unusual thinking. Denies suicide and homicide thoughts. Sensorium is clear. A&P: Decrease Invega to 3 mg at bedtime since he is not showing any objective signs of disturbed behavior and his current situation may be related to the side effects from Invega. Continue and encourage him to attend groups.
[2022-08-08] MEDS: LORazepam 1 MG TAB PO PRN (17:44)
[2022-08-08] MEDS ORDERED: PALIPERIDONE 6 MG TAB.ER.24 PO ONE (21:00)
[2022-08-09 02:39] VITALS: BP 127/78; PULSE 82; RESP 18; TEMP 97.9
[2022-08-09] MEDS: NICOTINE GUM (POLACRILEX) 2 MG GUM BUCCAL PRN ×2 (05:06→09:31)
[2022-08-09] MEDS ORDERED: PALIPERIDONE 3 MG TAB.ER.24 PO SCH (09:00)
[2022-08-09] MEDS: NICOTINE 14MG/24HR PATCH TRANSDERM SCH (09:31)
--- NOTE | 2022-08-09 10:14 | P.DS ---
Providers Date of admission: 08/03/22 21:02 Expected date of discharge: 08/09/22 Attending physician: Romaine Bermudez MD Consults: 08/03/22 21:07 Consult Physician Routine Consulting Provider: Gloria Plaza Consult Reason/Comments: medical management Do you want consulting provider notified?: Yes Primary care physician: Stated None Hospital Course: Patient had his psychiatric H&P done by and medical H&P done by on 08/04/2022. After psychiatric examination had started him on Invega 3 mg in the morning and 6 mg at night. He also received milieu therapy group therapy individual therapy occupational therapy and recreational therapy in the unit. His UDS was positive for amphetamines and methamphetamine and his psychosis were thought to be from these drugs in street of ongoing regular mental health issues since he did not have any such history in the past. In view of this his Invega was tapered off. He continued to do better his cog nition concentration general well-being improved. He continued to be more relaxed and cooperative. In view of this it was agreed to discharge him to live with his parents. He was advised to seek drug counseling and to avoid stimulants even for his ADHD. He was advised to seek non-stimulant ADHD medications if he thought he has to have it. He agreed with this. 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 Plan - Discharge Summary Discharge Rx Participant: No New Discharge Prescriptions: No Action OLANZapine [ZyPREXA] 10 mg PO HS ARIPiprazole IM SYRINGE [Abilify Maintena Syringe] 400 mg IM Q28D Discharge Medication List ARIPiprazole IM SYRINGE [Abilify Maintena Syringe] 400 mg IM Q28D 08/03/22 [History] OLANZapine [ZyPREXA] 10 mg PO HS 08/03/22 [History] Follow up Appointment(s)/Referral(s): None,Stated [Primary Care Provider] - 1-2 days Activity/Diet/Wound Care/Special Instructions: Avoid the use of street drugs and alcohol. Take all prescriptions as prescribed. When you are in need of refills on your medications, please contact your medical provider and/or outpatient psychiatrist to have this done. Please go to scheduled outpatient appointment for aftercare treatment. If symptoms r eturn or become worse, call the crisis line at and/or go to the nearest emergency room for evaluation. Discharge Disposition: HOME SELF-CARE Plan of Treatment: Seek Drug counseling. May want to consider non stimulant ADHD meds if you think you need to be treated for ADHD
== END 2022-08-09 15:00 | disposition home or self-care (01) | DRG 897 ==
LOC: EC 17:34 → 3MHU 21:02
PROVIDERS: ADMIT Psychiatry & Neurology Psychiatry; ATTEND Psychiatry & Neurology Psychiatry
DX: F15.159 Other stimulant abuse with stimulant-induced psychotic disorder, unspecified (principal); Z20.822 Contact with and (suspected) exposure to COVID-19; F90.9 Attention-deficit hyperactivity disorder, unspecified type; F25.0 Schizoaffective disorder, bipolar type; F17.210 Nicotine dependence, cigarettes, uncomplicated; J45.20 Mild intermittent asthma, uncomplicated; Z71.51 Drug abuse counseling and surveillance of drug abuser; Z79.899 Other long term (current) drug therapy; Z91.14 Patient's other noncompliance with medication regimen; Z56.0 Unemployment, unspecified
CPT/HCPCS: 80053; 80061; 80306; 82075; 83036; 84443; 85025; 87635; 99285

== ENCOUNTER 2022-09-12 14:59 | Emergency (ER) | payer MEDICARE, OTHER ==
[2022-09-12 15:06] VITALS: BP 128/78; PULSE 104; RESP 20; TEMP 98.2
--- NOTE | 2022-09-12 15:55 | ED ---
Psych HPI - General Chief Complaint: Psychiatric Symptoms Stated Complaint: pickup order Time Seen by Provider: 09/12/22 15:06 Source: EMS Mode of arrival: EMS - History of Present Illness Initial Comments: This patient is 27-year-old man reportedly with some underlying schizophreniform illness who is brought to have Court ordered psychiatric evaluation. Patient's father had found petition stating that the patient was becoming confrontational, had a change in personal hygiene and behavior. When I interview the patient, he denies having suicidal or homicidal ideation. He denies hallucinations. Patient states that some of the behaviors father reports his fact that he is a deng and uses a screaming voice. MD Complaint: other -: week(s) Associated Psychiatric Symptoms: other History of same: Yes Quality: constant Improves With: none Worsens With: none - Related Data Home Medications Medication Instructions Recorded Confirmed ARIPiprazole IM SYRINGE [Abilify 400 mg IM Q28D 09/12/22 09/12/22 Maintena Syringe] Brivaracetam [Briviact] 100 mg PO BID 09/12/22 09/12/22 Midazolam [Nayzilam] 5 mg NASAL DIRECTED PRN 09/12/22 09/12/22 Naloxone HCl [Narcan] 4 mg NASAL ONCE PRN 09/12/22 09/12/22 OLANZapine [ZyPREXA] 5 mg PO HS 09/12/22 09/12/22 Allergies Allergy/AdvReac Type Severity Reaction Status Date / Time No Known Allergies Allergy Verified 09/12/22 18:19 Review of Systems ROS Statement: Those systems with pertinent positive or pertinent negative responses have been documented in the HPI. ROS Other: All systems not noted in ROS Statement are negative. Constitutional: Denies: fever Respiratory: Denies: cough, dyspnea Cardiovascular: Denies: chest pain, palpitations Gastrointestinal: Denies: abdominal pain, vomiting, diarrhea Genitourinary: Denies: dysuria Musculoskeletal: Denies: back pain Neurological: Denies: headache, confusion Psychiatric: Reports: as per HPI. Denies: depression, auditory hallucinations, visual hallucinations, homicidal thoughts, suicidal thoughts Past Medical History Past Medical History: No Reported History History of Any Multi-Drug Resistant Organisms: None Reported Past Surgical History: No Surgical Hx Reported Past Anesthesia/Blood Transfusion Reactions: No Reported Reaction Past Psychological History: Anxiety, Bipolar, Depression, Schizophrenia Smoking Status: Current every day smoker Past Alcohol Use History: Occasional Past Drug Use History: Marijuana - Past Family History Father Additional Family Medical History / Comment(s): Father is alive at age 52 with no major medical problems. Mother Additional Family Medical History / Comment(s): Mother is alive at age 52 with no major medical problems. Brother(s) Additional Family Medical History / Comment(s): Patient has one half-brother and one half-sister with no major medical problems. General Exam Limitations: no limitations General appearance: alert, in no apparent distress Head exam: Present: atraumatic, normocephalic Eye exam: Present: normal appearance. Absent: scleral icterus, conjunctival injection Neck exam: Present: normal inspection Respiratory exam: Present: normal lung sounds bilaterally. Absent: respiratory distress, wheezes, rales, rhonchi, stridor Cardiovascular Exam: Present: regular rate, normal rhythm, normal heart sounds. Absent: systolic murmur, diastolic murmur, rubs, gallop GI/Abdominal exam: Present: soft. Absent: distended, tenderness, guarding, rebound, rigid, mass Extremities exam: Present: normal inspection, normal capillary refill. Absent: pedal edema, calf tenderness Back exam: Present: normal inspection. Absent: CVA tenderness (R), CVA tenderness (L) Neurological exam: Present: alert Skin exam: Present: warm, dry, intact, normal color. Absent: rash Course Vital Signs 09/12/22 15:02 Temperature 98.2 F Pulse Rate 104 H Respiratory 20 Rate Blood Pressure 128/78 O2 Sat by Pulse 96 Oximetry Medical Decision Making - Lab Data Lab Results 09/12/22 Range/Units 15:42 Urine Opiates Screen Not Detected (NotDetected) Ur Oxycodone Screen Not Detected (NotDetected) Urine Methadone Screen Not Detected (NotDetected) Ur Propoxyphene Screen Not Detected (NotDetected) Ur Barbiturates Screen Not Detected (NotDetected) U Tricyclic Antidepress Not Detected (NotDetected) Ur Phencyclidine Scrn Not Detected (NotDetected) Ur Amphetamines Screen Not Detected (NotDetected) U Methamphetamines Scrn Not Detected (NotDetected) U Benzodiazepines Scrn Not Detected (NotDetected) Urine Cocaine Screen Not Detected (NotDetected) U Marijuana (THC) Screen Detected H (NotDetected) Disposition Clinical Impression: Encounter for psychiatric assessment Disposition: HOME SELF-CARE Condition: Good Instructions (If sedation given, give patient instructions): Mood Disorders (ED) Is patient prescribed a controlled substance at d/c from ED?: No Referrals: Anthony Delcid DO [Primary Care Provider] - 1-2 days
[2022-09-12 16:08] LABS: Amphetamine Screen,Urine Not Detected (NotDetected); Barbiturate Screen,Urine Not Detected (NotDetected); Benzodiazepines Screen,Urine Not Detected (NotDetected); Cocaine Screen,Urine Not Detected (NotDetected); Methadone Screen, Urine Not Detected (NotDetected); Opiate Screen,Urine Not Detected (NotDetected); Oxycodone Screen, Urine Not Detected (NotDetected); Phencyclidine Screen,Urine Not Detected (NotDetected); Tricyclic Antidepressant,Urine Not Detected (NotDetected); Urn Cannabinoid Scrn Detected (NotDetected)
== END 2022-09-12 20:41 | disposition home or self-care (01) ==
LOC: EC 14:59
DX: Z04.6 Encounter for general psychiatric examination, requested by authority (principal); F41.9 Anxiety disorder, unspecified; F31.9 Bipolar disorder, unspecified; F17.200 Nicotine dependence, unspecified, uncomplicated; F12.90 Cannabis use, unspecified, uncomplicated
CPT/HCPCS: 80306; 82075; 99285

== ENCOUNTER 2022-12-25 17:23 | Emergency (ER) | payer MEDICARE, OTHER ==
[2022-12-25 17:35] VITALS: BP 133/77; PULSE 85; RESP 20; TEMP 97.8
--- NOTE | 2022-12-25 17:40 | ED ---
Head Injury HPI - General Chief complaint: Head Injury Stated complaint: fall, head laceration Time Seen by Provider: 12/25/22 17:40 Source: patient Mode of arrival: ambulatory Limitations: no limitations - History of Present Illness Initial comments: Patient is a 27-year-old male presenting with chief complaint of head injury. Patient states that he was walking in his house when he slipped on a wet floor, he fell into the mantle hitting the back of his head. There is a laceration back of the scalp. There was no loss of consciousness and no blood thinners. No nausea, vomiting, dizziness, neck pain or stiffness, numbness, tingling, weakness, chest pain, difficulty breathing, palpitations - Related Data Home Medications Medication Instructions Recorded Confirmed ARIPiprazole IM SYRINGE [Abilify 400 mg IM Q28D 09/12/22 09/12/22 Maintena Syringe] Brivaracetam [Briviact] 100 mg PO BID 09/12/22 09/12/22 Midazolam [Nayzilam] 5 mg NASAL DIRECTED PRN 09/12/22 09/12/22 Naloxone HCl [Narcan] 4 mg NASAL ONCE PRN 09/12/22 09/12/22 OLANZapine [ZyPREXA] 5 mg PO HS 09/12/22 09/12/22 Allergies/Adverse reactions: Allergies Allergy/AdvReac Type Severity Reaction Status Date / Time No Known Allergies Allergy Verified 12/25/22 17:35 Review of Systems ROS Statement: Those systems with pertinent positive or pertinent negative responses have been documented in the HPI. ROS Other: All systems not noted in ROS Statement are negative. Past Medical History Past Medical History: No Reported History Additional Past Medical History / Comment(s): HPV- resolved History of Any Multi-Drug Resistant Organisms: None Reported Past Surgical History: No Surgical Hx Reported Additional Past Surgical History / Comment(s): wisdom teeth Past Anesthesia/Blood Transfusion Reactions: No Reported Reaction Past Psychological History: Anxiety, Bipolar, Depression, Schizophrenia Smoking Status: Current every day smoker Past Alcohol Use History: None Reported Past Drug Use History: Marijuana - Past Family History Father Additional Family Medical History / Comment(s): Father is alive at age 52 with no major medical problems. Mother Additional Family Medical History / Comment(s): Mother is alive at age 52 with no major medical problems. Brother(s) Additional Family Medical History / Comment(s): Patient has one half-brother and one half-sister with no major medical problems. General Exam Limitations: no limitations General appearance: alert, in no apparent distress Head exam: Present: normocephalic Expanded Head exam: Present: abrasion (3 small abrasions seen to the scalp, bleeding well controlled) Eye exam: Present: normal appearance, PERRL, EOMI. Absent: scleral icterus, conjunctival injection, periorbital swelling Neck exam: Present: normal inspection, full ROM Respiratory exam: Present: normal lung sounds bilaterally. Absent: respiratory distress, wheezes, rales, rhonchi, stridor Cardiovascular Exam: Present: regular rate, normal rhythm, normal heart sounds. Absent: systolic murmur, diastolic murmur, rubs, gallop, clicks Neurological exam: Present: alert, oriented X3, CN II-XII intact Expanded Eye Response: (4) open spontaneously Motor Response: (6) obeys commands Verbal Response: (5) oriented Sunita Total: 15 Psychiatric exam: Present: normal affect, normal mood Skin exam: Present: warm, dry, intact, normal color. Absent: rash Course Vital Signs 12/25/22 17:31 Temperature 97.8 F Pulse Rate 85 Respiratory 20 Rate Blood Pressure 133/77 O2 Sat by Pulse 97 Oximetry Medical Decision Making - Medical Decision Making Was pt. sent in by a medical professional or institution (SNEHA Moon, INDUSTRIAL MAINTENANCE MECHANIC, urgent care, hospital, or longterm...) When possible be specific @ -No Did you speak to anyone other than the patient for history (EMS, parent, family, police, friend...)? What history was obtained from this source @ -No Did you review nursing and triage notes (agree or disagree)? Why? @ -I reviewed and agree with nursing and triage notes Were old charts reviewed (outside hosp., previous admission, EMS record, old EKG, old radiological studies, urgent care reports/EKG's, longterm records)? Report findings @ -No old charts were reviewed Differential Diagnosis (chest pain, altered mental status, abdominal pain women, abdominal pain men, vaginal bleeding, weakness, fever, dyspnea, syncope, headache, dizziness, GI bleed, back pain, seizure, CVA, palpatations, mental health)? @ -Differential includes scalp abrasion, intracranial hemorrhage, concussion, this is not an all inclusive list EKG interpreted by me (3pts min.). @ -As above X-rays interpreted by me (1pt min.). @ -None done CT interpreted by me (1pt min.). @ -None done U/S interpreted by me (1pt. min.). @ -None done What testing was considered but not performed or refused? (CT, X-rays, U/S, labs)? Why? @ -None What meds were considered but not given or refused? Why? @ -None Did you discuss the management of the patient with other professionals (professionals i.e. Dr., PA, INDUSTRIAL MAINTENANCE MECHANIC, lab, RT, psych nurse, social media campaign manager, properties supervisor, teacher, geological technical officer, window caser)? Give summary @ -No Was smoking cessation discussed for >3mins.? @ -No Was critical care preformed (if so, how long)? @ -No Were there social determinants of health that impacted care today? How? (Homelessness, low income, unemployed, alcoholism, drug addiction, transportation, low edu. Level, literacy, decrease access to med. care, group home, rehab)? @ -No Was there de-escalation of care discussed even if they declined (Discuss DNR or withdrawal of care, Hospice)? DNR status @ -No What co-morbidities impacted this encounter? (DM, HTN, Smoking, COPD, CAD, Cancer, CVA, ARF, Chemo, Hep., AIDS, mental health diagnosis, sleep apnea, morbid obesity)? @ -None Was patient admitted / discharged? Hospital course, mention meds given and route, prescriptions, significant lab abnormalities, going to OR and other pertinent info. @ - is a 27-year-old male presenting for evaluation post head injury. Patient slipped and fell hitting his head on his mandible at home. He admits to some bleeding from the scalp. There was no loss of consciousness recent blood thinners. No nausea, vomiting, dizziness, headache, neck pain. On physical examination there are no focal neurological deficits. [place] head CT guidelines state CT is unnecessary at this time. There are 3 small abrasions to the scalp and bleeding is well-controlled. Some LET is placed over the abrasions. Patient is educated on supportive treatment. Follow-up with PCP. Report back to ER with any new or worsening symptoms. Discussed return parameters and answered all questions. Patient conveyed verbal understanding and agreed to the plan. I discussed this case in detail with my attending Dr. Dsouza Undiagnosed new problem with uncertain prognosis? @ -No Drug Therapy requiring intensive monitoring for toxicity (Heparin, Nitro, Insulin, Cardizem)? @ -No Were any procedures done? @ -No Diagnosis/symptom? @ -Scalp abrasion Acute, or Chronic, or Acute on Chronic? @ -Acute Uncomplicated (without systemic symptoms) or Complicated (systemic symptoms)? @ -uncomplicated Side effects of treatment? @ -No Exacerbation, Progression, or Severe Exacerbation? @ -No Disposition Clinical Impression: Scalp abrasion Disposition: HOME SELF-CARE Condition: Good Instructions (If sedation given, give patient instructions): Head Injury (ED) Additional Instructions: Follow-up with PCP. Report back to ER with any new or worsening symptoms. Is patient prescribed a controlled substance at d/c from ED?: No Referrals: Anthony Delcid DO [Primary Care Provider] - 1-2 days Time of Disposition: 20:21
[2022-12-25] MEDS ORDERED: LIDOCAINE/EPINEPHR/TETRACAINE 5 ML BOTTLE TOPICAL ONE (19:40)
[2022-12-25] MEDS ORDERED: DIPH,PERTUS(ACELL)TETVAC-LF 0.5 ML VIAL IM ONE (20:21)
== END 2022-12-25 20:31 | disposition home or self-care (01) ==
LOC: EC 17:23
DX: S00.01XA Abrasion of scalp, initial encounter (principal); F41.9 Anxiety disorder, unspecified; F31.9 Bipolar disorder, unspecified; F17.200 Nicotine dependence, unspecified, uncomplicated; F12.90 Cannabis use, unspecified, uncomplicated; W01.0XXA Fall on same level from slipping, tripping and stumbling without subsequent striking against object, initial encounter; Y93.01 Activity, walking, marching and hiking
CPT/HCPCS: 99283

== ENCOUNTER 2023-06-27 09:33 | Emergency (ER) | payer MEDICARE, OTHER ==
--- NOTE | 2023-06-27 11:02 | ED ---
General Adult HPI - General Source: patient Mode of arrival: ambulatory <Pratik López - Last Filed: 06/27/23 11:03> <Mango Torre - Last Filed: 06/27/23 14:41> - General Chief complaint: Psychiatric Symptoms Stated complaint: mental health - History of Present Illness Initial comments: 28-year-old male with history of bipolar disorder presents to the ED for p sychiatric evaluation. Was previously in rehab and discharged home. A manic episode there and was advised by community case manager to present to the ED a psychiatric evaluation. Denies homicidal or suicidal ideation. Quicknote performed, verbally signed by Pratik López PA-C (Pratik López) This is a 28 year old male who presents emergency department because patient went to [facility] and they told the patient come to the emergency department and be evaluated for his manic state. Patient states he doesn't believe he is manic he states he believes this is his baseline he doesn't want to be here but since he was told to come E cane. Patient denies any physical complaints today. Patient denies any drinking or drug use except for marijuana. Patient denies suicidal homicidal ideations. (Mango Torre) - Related Data Home Medications Medication Instructions Recorded Confirmed ARIPiprazole IM SYRINGE [Abilify 400 mg IM Q28D 09/12/22 09/12/22 Maintena Syringe] Brivaracetam [Briviact] 100 mg PO BID 09/12/22 09/12/22 Midazolam [Nayzilam] 5 mg NASAL DIRECTED PRN 09/12/22 09/12/22 Naloxone HCl [Narcan] 4 mg NASAL ONCE PRN 09/12/22 09/12/22 OLANZapine [ZyPREXA] 5 mg PO HS 09/12/22 09/12/22 Allergies Allergy/AdvReac Type Severity Reaction Status Date / Time No Known Allergies Allergy Verified 06/27/23 14:32 Review of Systems ROS Other: All systems not noted in ROS Statement are negative. <Pratik López - Last Filed: 06/27/23 11:03> ROS Other: All systems not noted in ROS Statement are negative. <Mango Torre - Last Filed: 06/27/23 14:41> ROS Statement: Those systems with pertinent positive or pertinent negative responses have been documented in the HPI. Past Medical History Past Medical History: No Reported History, Asthma Additional Past Medical History / Comment(s): HPV- resolved History of Any Multi-Drug Resistant Organisms: None Reported Past Surgical History: No Surgical Hx Reported Additional Past Surgical History / Comment(s): wisdom teeth Past Anesthesia/Blood Transfusion Reactions: No Reported Reaction Past Psychological History: Anxiety, Bipolar, Depression, Schizophrenia Smoking Status: Current every day smoker Past Alcohol Use History: None Reported Past Drug Use History: Marijuana - Past Family History Father Additional Family Medical History / Comment(s): Father is alive at age 52 with no major medical problems. Mother Additional Family Medical History / Comment(s): Mother is alive at age 52 with no major medical problems. Brother(s) Additional Family Medical History / Comment(s): Patient has one half-brother and one half-sister with no major medical problems. <Pratik López - Last Filed: 06/27/23 11:03> General Exam Limitations: no limitations General appearance: alert, in no apparent distress Eye exam: Present: normal appearance Neck exam: Present: normal inspection Respiratory exam: Present: normal lung sounds bilaterally Cardiovascular Exam: Present: regular rate, normal rhythm Neurological exam: Present: alert, oriented X3 <Pratik López - Last Filed: 06/27/23 11:03> <Mango Torre - Last Filed: 06/27/23 14:41> - General Exam Comments Initial Comments: GENERAL: Patient is well-developed and well-nourished. Patient is nontoxic and well- hydrated and is in no acute distress. ENT: Neck is soft and supple. No significant lymphadenopathy is noted. Oropharynx is clear. Moist mucous membranes. Neck has full range of motion without eliciting any pain. EYES: The sclera were anicteric and conjunctiva were pink and moist. Extraocular movements were intact and pupils were equal round and reactive to light. Eyelids were unremarkable. PULMONARY: Unlabored respirations. Good breath sounds bilaterally. No audible rales rhonchi or wheezing was noted. CARDIOVASCULAR: There is a regular rate and rhythm without any murmurs gallops or rubs. ABDOMEN: Soft and nontender with normal bowel sounds. SKIN: Skin is clear with no lesions or rashes and otherwise unremarkable. NEUROLOGIC: Patient is alert and oriented x3. Cranial nerves II through XII are grossly intact. Motor and sensory are also intact. Normal speech, volume and content. Symmetrical smile. MUSCULOSKELETAL: Normal extremities with adequate strength and full range of motion. PSYCHIATRIC: Patient is not suicidal or homicidal. Patient is a little hyperverbal but otherwise is not expressing any bizarre thoughts denies any hallucinations or delusions (Mango Torre) Course Vital Signs 06/27/23 09:38 Temperature 98.7 F Pulse Rate 97 Respiratory 18 Rate Blood Pressure 133/78 O2 Sat by Pulse 98 Oximetry Medical Decision Making - Lab Data Result diagrams: 06/27/23 11:44 06/27/23 11:44 <Mango Torre - Last Filed: 06/27/23 14:41> - Medical Decision Making Was pt. sent in by a medical professional or institution (, PA, DOCTOR OF DENTAL MEDICINE, urgent care, hospital, or longterm...) When possible be specific @ -[facility] patient to the emergency department Did you speak to anyone other than the patient for history (EMS, parent, family, police, friend...)? What history was obtained from this source @ -Patient's mother states some of the history Did you review nursing and triage notes (agree or disagree)? Why? @ -I reviewed and agree with nursing and triage notes Were old charts reviewed (outside hosp., previous admission, EMS record, old EKG, old radiological studies, urgent care reports/EKG's, longterm records)? Report findings @ -No old charts were reviewed Differential Diagnosis (chest pain, altered mental status, abdominal pain women, abdominal pain men, vaginal bleeding, weakness, fever, dyspnea, syncope, headache, dizziness, GI bleed, back pain, seizure, CVA, palpatations, mental health, musculoskeletal)? @ -Differential Mental Health Depression, anxiety, bipolar, psychosis, schizophrenia, borderline personality, situational depression, adjustment disorder, behavioral disorder, brain tumor, malingering, substance abuse, encephalopathy, medication reaction, dementia, hypothyroidism, degenerative neurologic disorder, lupus.... This is not meant to be all-inclusive list EKG interpreted by me (3pts min.). @ -As above X-rays interpreted by me (1pt min.). @ -None done CT interpreted by me (1pt min.). @ -None done U/S interpreted by me (1pt. min.). @ -None done What testing was considered but not performed or refused? (CT, X-rays, U/S, labs)? Why? @ -None What meds were considered but not given or refused? Why? @ -None Did you discuss the management of the patient with other professionals (pro fessionals i.e. , PA, DOCTOR OF DENTAL MEDICINE, lab, RT, psych nurse, social services specialist, upper cutter, teacher, zoology technical officer, community case manager)? Give summary @ -Psychiatric nurse spoke with the patient I spoke with the psychiatric nurse after the interview Was smoking cessation discussed for >3mins.? @ -No Was critical care preformed (if so, how long)? @ -No Were there social determinants of health that impacted care today? How? (Homelessness, low income, unemployed, alcoholism, drug addiction, transportation, low edu. Level, literacy, decrease access to med. care, penitentiary, rehab)? @ -No Was there de-escalation of care discussed even if they declined (Discuss DNR or withdrawal of care, Hospice)? DNR status @ -No What co-morbidities impacted this encounter? (DM, HTN, Smoking, COPD, CAD, Cancer, CVA, ARF, Chemo, Hep., AIDS, mental health diagnosis, sleep apnea, morbid obesity)? @ -None Was patient admitted / discharged? Hospital course, mention meds given and route, prescriptions, significant lab abnormalities, going to OR and other pertinent info. @ -Patient was seen by the psychiatric team and they determined the patient could go home and be safe and he has an appointment tomorrow. Patient was in agreement with this patient we discharged home Undiagnosed new problem with uncertain prognosis? @ -No Drug Therapy requiring intensive monitoring for toxicity (Heparin, Nitro, Insulin, Cardizem)? @ -No Were any procedures done? @ -No Diagnosis/symptom? @ -Bipolar Acute, or Chronic, or Acute on Chronic? @ -Acute Uncomplicated (without systemic symptoms) or Complicated (systemic symptoms)? @ -Uncomplicated Side effects of treatment? @ -No Exacerbation, Progression, or Severe Exacerbation? @ -No Poses a threat to life or bodily function? How? (Chest pain, USA, ND, pneumonia, PE, COPD, DKA, ARF, appy, cholecystitis, CVA, Diverticulitis, Homicidal, Suicidal, threat to staff... and all critical care pts) @ -No (Mango Torre) - Lab Data Lab Results 06/27/23 06/27/23 06/27/23 Range/Units 11:43 11:44 11:44 WBC 6.1 (3.8-10.6) k/uL RBC 4.36 (4.30-5.90) m/uL Hgb 14.8 (13.0-17.5) gm/dL Hct 42.6 (39.0-53.0) % MCV 97.6 (80.0-100.0) fL MCH 34.0 (25.0-35.0) pg MCHC 34.9 (31.0-37.0) g/dL RDW 12.6 (11.5-15.5) % Plt Count 198 (150-450) k/uL MPV 7.7 Neutrophils % 70 % Lymphocytes % 22 % Monocytes % 4 % Eosinophils % 3 % Basophils % 0 % Neutrophils # 4.3 (1.3-7.7) k/uL Lymphocytes # 1.4 (1.0-4.8) k/uL Monocytes # 0.3 (0-1.0) k/uL Eosinophils # 0.2 (0-0.7) k/uL Basophils # 0.0 (0-0.2) k/uL Sodium 141 (137-145) mmol/L Potassium 4.3 (3.5-5.1) mmol/L Chloride 107 (98-107) mmol/L Carbon Dioxide 27 (22-30) mmol/L Anion Gap 7 mmol/L BUN 8 L (9-20) mg/dL Creatinine 0.72 (0.66-1.25) mg/dL Est GFR (CKD-EPI)AfAm >90 (>60 ml/min/1.73 sqM) Est GFR (CKD-EPI)NonAf >90 (>60 ml/min/1.73 sqM) Glucose 100 H (74-99) mg/dL Calcium 9.2 (8.4-10.2) mg/dL Total Bilirubin 0.6 (0.2-1.3) mg/dL AST 33 (17-59) U/L ALT 32 (4-49) U/L Alkaline Phosphatase 57 (38-126) U/L Total Protein 6.7 (6.3-8.2) g/dL Albumin 4.1 (3.5-5.0) g/dL Urine Color Yellow Urine Appearance Clear (Clear) Urine pH 7.0 (5.0-8.0) Ur Specific Winston 1.020 (1.001-1.035) Urine Protein Negative (Negative) Urine Glucose (UA) Negative (Negative) Urine Ketones Negative (Negative) Urine Blood Negative (Negative) Urine Nitrite Negative (Negative) Urine Bilirubin Negative (Negative) Urine Urobilinogen <2.0 (<2.0) mg/dL Ur Leukocyte Esterase Negative (Negative) Urine Opiates Screen Not Detected (NotDetected) Ur Oxycodone Screen Not Detected (NotDetected) Urine Methadone Screen Not Detected (NotDetected) Ur Propoxyphene Screen Not Detected (NotDetected) Ur Barbiturates Screen Not Detected (NotDetected) U Tricyclic Antidepress Detected H (NotDetected) Ur Phencyclidine Scrn Not Detected (NotDetected) Ur Amphetamines Screen Not Detected (NotDetected) U Methamphetamines Scrn Not Detected (NotDetected) U Benzodiazepines Scrn Not Detected (NotDetected) Urine Cocaine Screen Not Detected (NotDetected) U Marijuana (THC) Screen Detected H (NotDetected) Serum Alcohol <10 mg/dL Disposition <Pratik López - Last Filed: 06/27/23 11:03> Is patient prescribed a controlled substance at d/c from ED?: No Time of Disposition: 14:40 <Mango Torre - Last Filed: 06/27/23 14:41> Clinical Impression: Bipolar disorder Disposition: HOME SELF-CARE Condition: Good Instructions (If sedation given, give patient instructions): Bipolar Disorder (ED) Additional Instructions: Follow-up tomorrow with your counselor Referrals: None,Stated [Primary Care Provider] - 1-2 days
[2023-06-27 12:04] LABS: Basophils % (A) 0 %; Eosinophils # (A) 0.2 k/uL (0-0.7); Eosinophils % (A) 3 %; HCT 42.6 % (39.0-53.0); HGB 14.8 gm/dL (13.0-17.5); Lymphocytes # (A) 1.4 k/uL (1.0-4.8); Lymphocytes % (A) 22 %; MCHC 34.9 g/dL (31.0-37.0); MCV 97.6 fL (80.0-100.0); Mean Platelet Volume 7.7; Monocytes # (A) 0.3 k/uL (0-1.0); Monocytes % (A) 4 %; Neutrophils # (A) 4.3 k/uL (1.3-7.7); Neutrophils % (A) 70 %; Platelet Count 198 k/uL (150-450); RBC 4.36 m/uL (4.30-5.90); RDW 12.6 % (11.5-15.5); WBC 6.1 k/uL (3.8-10.6)
[2023-06-27 12:08] LABS: Appearance,Urine Clear (Clear); Color,Urine Yellow
[2023-06-27 12:09] LABS: Bilirubin,Urine Negative (Negative); Blood,Urine Negative (Negative); Glucose,Urine (UA) Negative (Negative); Ketones,Urine Negative (Negative); Leukocyte Esterase,Urine Negative (Negative); Nitrite,Urine Negative (Negative); Protein,Urine Negative (Negative); Urobilinogen,Urine <2.0 mg/dL (<2.0)
[2023-06-27 12:16] LABS: Amphetamine Screen,Urine Not Detected (NotDetected); Benzodiazepines Screen,Urine Not Detected (NotDetected); Cocaine Screen,Urine Not Detected (NotDetected); Opiate Screen,Urine Not Detected (NotDetected); Phencyclidine Screen,Urine Not Detected (NotDetected); Tricyclic Antidepressant,Urine Detected (NotDetected); Urn Cannabinoid Scrn Detected (NotDetected)
[2023-06-27 12:17] LABS: Barbiturate Screen,Urine Not Detected (NotDetected); Methadone Screen, Urine Not Detected (NotDetected); Oxycodone Screen, Urine Not Detected (NotDetected)
[2023-06-27 12:17] LABS: Potassium 4.3 mmol/L (3.5-5.1)
[2023-06-27 12:18] LABS: ALT 32 U/L (4-49); AST 33 U/L (17-59); African American GFR (CKD) >90 (>60 ml/min/1.73 sqM); Albumin 4.1 g/dL (3.5-5.0); Alcohol <10 mg/dL; Alkaline Phosphatase 57 U/L (38-126); Anion Gap 7 mmol/L; Blood Urea Nitrogen 8 mg/dL (9-20); Calcium 9.2 mg/dL (8.4-10.2); Carbon Dioxide 27 mmol/L (22-30); Chloride 107 mmol/L (98-107); Glucose 100 mg/dL (74-99); Non-African American GFR(CKD) >90 (>60 ml/min/1.73 sqM); Sodium 141 mmol/L (137-145); Total Bilirubin 0.6 mg/dL (0.2-1.3); Total Protein 6.7 g/dL (6.3-8.2)
[2023-06-27 14:44] VITALS: BP 128/79; PULSE 95; RESP 17; TEMP 98.4
== END 2023-06-27 14:50 | disposition home or self-care (01) ==
LOC: EEVIPCON 09:33 → EC 09:33
DX: F31.9 Bipolar disorder, unspecified (principal); J45.909 Unspecified asthma, uncomplicated; F20.9 Schizophrenia, unspecified; F41.9 Anxiety disorder, unspecified; F17.200 Nicotine dependence, unspecified, uncomplicated; F12.90 Cannabis use, unspecified, uncomplicated; Z79.899 Other long term (current) drug therapy
CPT/HCPCS: 82075; 36415; 80053; 85025; 81003; 80306; 99285; G0480; 80320

== ENCOUNTER 2023-08-09 13:37 | Emergency (ER) | payer MEDICARE ==
--- NOTE | 2023-08-09 15:07 | ED ---
General Adult HPI - General Chief complaint: Psychiatric Symptoms Stated complaint: mental health Time Seen by Provider: 08/09/23 13:45 Source: patient, EMS, RN notes reviewed, old records reviewed Mode of arrival: EMS Limitations: no limitations - History of Present Illness Initial comments: This is a 28-year-old male who presents emergency Department stating that he wanted to have an evaluation just to prove that he was not crazy. Patient states his mother was making comments that she wanted to be suicidal and he called 911 to have the police come so that she would not commit suicide. At that point in time the police asked him if he wanted to go to the hospital and he said he did so that he can clear himself from having any mental health issues at this time. Patient denies suicidal or homicidal ideations. Patient does not, with a petition. Patient denies any physical complaints today. Patient denies any psychiatric symptoms such as seeing things or hearing any voices. Patient states she just wants to be cleared to go back to living his life - Related Data Home Medications Medication Instructions Recorded Confirmed ARIPiprazole IM SYRINGE [Abilify 400 mg IM Q28D 09/12/22 06/27/23 Maintena Syringe] QUEtiapine FUMARATE [SEROquel] 300 mg PO HS 06/27/23 06/27/23 cloNIDine HCL [Catapres] 0.2 mg PO TID PRN 06/27/23 06/27/23 Allergies Allergy/AdvReac Type Severity Reaction Status Date / Time No Known Allergies Allergy Verified 08/09/23 13:41 Review of Systems ROS Statement: Those systems with pertinent positive or pertinent negative responses have been documented in the HPI. ROS Other: All systems not noted in ROS Statement are negative. Past Medical History Past Medical History: No Reported History, Asthma Additional Past Medical History / Comment(s): HPV- resolved History of Any Multi-Drug Resistant Organisms: None Reported Past Surgical History: No Surgical Hx Reported Additional Past Surgical History / Comment(s): wisdom teeth Past Anesthesia/Blood Transfusion Reactions: No Reported Reaction Past Psychological History: Anxiety, Bipolar, Depression, Schizophrenia Smoking Status: Current every day smoker Past Alcohol Use History: None Reported Past Drug Use History: Marijuana - Past Family History Father Additional Family Medical History / Comment(s): Father is alive at age 52 with no major medical problems. Mother Additional Family Medical History / Comment(s): Mother is alive at age 52 with no major medical problems. Brother(s) Additional Family Medical History / Comment(s): Patient has one half-brother and one half-sister with no major medical problems. General Exam - General Exam Comments Initial Comments: GENERAL: Patient is well-developed and well-nourished. Patient is nontoxic and well-hydrated and is in no acute distress. ENT: Neck is soft and supple. No significant lymphadenopathy is noted. Oropharynx is clear. Moist mucous membranes. Neck has full range of motion without eliciting any pain. EYES: The sclera were anicteric and conjunctiva were pink and moist. Extraocular movements were intact and pupils were equal round and reactive to light. Eyelids were unremarkable. PULMONARY: Unlabored respirations. Good breath sounds bilaterally. No audible rales rhonchi or wheezing was noted. CARDIOVASCULAR: There is a regular rate and rhythm without any murmurs gallops or rubs. ABDOMEN: Soft and nontender with normal bowel sounds. SKIN: Skin is clear with no lesions or rashes and otherwise unremarkable. NEUROLOGIC: Patient is alert and oriented x3. Cranial nerves II through XII are grossly intact. Motor and sensory are also intact. Normal speech, volume and content. Symmetrical smile. MUSCULOSKELETAL: Normal extremities with adequate strength and full range of motion. LYMPHATICS: No significant lymphadenopathy is noted PSYCHIATRIC: Normal psychiatric evaluation. Patient denies suicidal or homicidal ideations. Limitations: no limitations Course Vital Signs 08/09/23 13:39 Temperature 98.0 F Pulse Rate 98 Respiratory 20 Rate Blood Pressure 148/88 O2 Sat by Pulse 99 Oximetry Medical Decision Making - Medical Decision Making Was pt. sent in by a medical professional or institution (, PA, TOW FEEDER, urgent care, hospital, or long-term...) When possible be specific @ -No Did you speak to anyone other than the patient for history (EMS, parent, family, police, friend...)? What history was obtained from this source @ -No Did you review nursing and triage notes (agree or disagree)? Why? @ -I reviewed and agree with nursing and triage notes Were old charts reviewed (outside hosp., previous admission, EMS record, old EKG, old radiological studies, urgent care reports/EKG's, long-term records)? Report findings @ -No old charts were reviewed Differential Diagnosis (chest pain, altered mental status, abdominal pain women, abdominal pain men, vaginal bleeding, weakness, fever, dyspnea, syncope, headache, dizziness, GI bleed, back pain, seizure, CVA, palpatations, mental health, musculoskeletal)? @ -Differential Mental Health Depression, anxiety, bipolar, psychosis, schizophrenia, borderline personality, situational depression, adjustment disorder, behavioral disorder, brain tumor, malingering, substance abuse, encephalopathy, medication reaction, dementia, hypothyroidism, degenerative neurologic disorder, lupus.... This is not meant to be all-inclusive list. EKG interpreted by me (3pts min.). @ -As above X-rays interpreted by me (1pt min.). @ -None done CT interpreted by me (1pt min.). @ -None done U/S interpreted by me (1pt. min.). @ -None done What testing was considered but not performed or refused? (CT, X-rays, U/S, labs)? Why? @ -None What meds were considered but not given or refused? Why? @ -None Did you discuss the management of the patient with other professionals (professionals i.e. , PA, TOW FEEDER, lab, RT, psych nurse, social services technician, administrative resident, teacher, corporation officer, case finisher)? Give summary @ -Psychiatric nurse evaluated the patient and formulated a safety plan which the patient was in agreement with. Patient throughout the ED course denied suicidal homicidal ideations. Was smoking cessation discussed for >3mins.? @ -No Was critical care preformed (if so, how long)? @ -No Were there social determinants of health that impacted care today? How? (Homelessness, low income, unemployed, alcoholism, drug addiction, transportation, low edu. Level, literacy, decrease access to med. care, intermediate, rehab)? @ -No Was there de-escalation of care discussed even if they declined (Discuss DNR or withdrawal of care, Hospice)? DNR status @ -No What co-morbidities impacted this encounter? (DM, HTN, Smoking, COPD, CAD, Cancer, CVA, ARF, Chemo, Hep., AIDS, mental health diagnosis, sleep apnea, morbid obesity)? @ -None Was patient admitted / discharged? Hospital course, mention meds given and route, prescriptions, significant lab abnormalities, going to OR and other pertinent info. @ -Patient accepts a safety plan and at no time today did he feel suicidal. Undiagnosed new problem with uncertain prognosis? @ -No Drug Therapy requiring intensive monitoring for toxicity (Heparin, Nitro, Insulin, Cardizem)? @ -No Were any procedures done? @ -No Diagnosis/symptom? @ -Psychiatric evaluation Acute, or Chronic, or Acute on Chronic? @ -Acute Uncomplicated (without systemic symptoms) or Complicated (systemic symptoms)? @ -Uncomplicated Side effects of treatment? @ -No Exacerbation, Progression, or Severe Exacerbation? @ -No Poses a threat to life or bodily function? How? (Chest pain, USA, [place], pneumonia, PE, COPD, DKA, ARF, appy, cholecystitis, CVA, Diverticulitis, Homicidal, Suicidal, threat to staff... and all critical care pts) @ -No Disposition Clinical Impression: Normal psychiatric assessment Disposition: HOME SELF-CARE Condition: Good Is patient prescribed a controlled substance at d/c from ED?: Yes Referrals: None,Stated [Primary Care Provider] - 1-2 days Time of Disposition: 18:11
[2023-08-09 15:32] VITALS: TEMP 98
[2023-08-09 18:37] VITALS: BP 128/68; PULSE 78; RESP 18
== END 2023-08-09 20:16 | disposition home or self-care (01) ==
LOC: EC 13:37
DX: Z00.8 Encounter for other general examination (principal); J45.909 Unspecified asthma, uncomplicated; F17.200 Nicotine dependence, unspecified, uncomplicated; F12.90 Cannabis use, unspecified, uncomplicated; Z86.59 Personal history of other mental and behavioral disorders
CPT/HCPCS: 82075; 99285

== ENCOUNTER 2023-12-22 09:01 | Emergency (ER) | payer MEDICARE, OTHER ==
--- NOTE | 2023-12-22 09:23 | ED ---
General Adult HPI - General Chief complaint: Psychiatric Symptoms Stated complaint: Mental Health Time Seen by Provider: 12/22/23 09:12 Source: patient, family, RN notes reviewed Mode of arrival: ambulatory Limitations: no limitations - History of Present Illness Initial comments: Patient is a 28-year-old male presenting to the emergency department with concerns for mental health evaluation. Patient has been out of his medications for 3 to 4 days and is hearing voices. Patient does have history of this previously. Patient states he does have racing thoughts and difficulty sleeping. Patient states hard to concentrate. No suicidal or homicidal thoughts. Patient denies alcohol and street drug use. Family adds that he is supposed to be at [facility] however they would not let him go secondary to being off his medications. Neither patient nor family is unable to state why patient is going to [facility] when patient denies alcohol and street drug use. - Related Data Home Medications Medication Instructions Recorded Confirmed ARIPiprazole IM SYRINGE [Abilify 400 mg IM Q28D 09/12/22 06/27/23 Maintena Syringe] QUEtiapine FUMARATE [SEROquel] 300 mg PO HS 06/27/23 06/27/23 cloNIDine HCL [Catapres] 0.2 mg PO TID PRN 06/27/23 06/27/23 Allergies Allergy/AdvReac Type Severity Reaction Status Date / Time No Known Allergies Allergy Verified 08/09/23 13:41 Review of Systems ROS Statement: Those systems with pertinent positive or pertinent negative responses have been documented in the HPI. ROS Other: All systems not noted in ROS Statement are negative. Constitutional: Denies: fever Eyes: Denies: eye pain ENT: Denies: ear pain Respiratory: Denies: dyspnea Cardiovascular: Denies: chest pain Psychiatric: Reports: auditory hallucinations. Denies: suicidal thoughts Past Medical History Past Medical History: No Reported History, Asthma Additional Past Medical History / Comment(s): HPV- resolved History of Any Multi-Drug Resistant Organisms: None Reported Past Surgical History: No Surgical Hx Reported Additional Past Surgical History / Comment(s): wisdom teeth Past Anesthesia/Blood Transfusion Reactions: No Reported Reaction Past Psychological History: Anxiety, Bipolar, Depression, Schizophrenia Smoking Status: Current every day smoker Past Alcohol Use History: None Reported Past Drug Use History: Marijuana - Past Family History Father Additional Family Medical History / Comment(s): Father is alive at age 52 with no major medical problems. Mother Additional Family Medical History / Comment(s): Mother is alive at age 52 with no major medical problems. Brother(s) Additional Family Medical History / Comment(s): Patient has one half-brother and one half-sister with no major medical problems. General Exam Limitations: no limitations General appearance: alert, in no apparent distress Head exam: Present: atraumatic Eye exam: Present: normal appearance Neck exam: Present: normal inspection Respiratory exam: Present: normal lung sounds bilaterally Cardiovascular Exam: Present: regular rate, normal rhythm GI/Abdominal exam: Present: soft. Absent: tenderness Extremities exam: Present: normal inspection Neurological exam: Present: alert Psychiatric exam: Present: normal affect, normal mood Skin exam: Present: normal color Course Vital Signs 12/22/23 09:03 Temperature 98.2 F Pulse Rate 82 Respiratory 18 Rate Blood Pressure 132/74 O2 Sat by Pulse 98 Oximetry Medical Decision Making - Medical Decision Making Was pt. sent in by a medical professional or institution (, PA, AUTOMOBILE BODY REPAIR CHIEF, urgent care, hospital, or senior living...) When possible be specific @ -No Did you speak to anyone other than the patient for history (EMS, parent, family, police, friend...)? What history was obtained from this source @ -Family is present who helps provide history as patient is slightly a poor historian Did you review nursing and triage notes (agree or disagree)? Why? @ -I reviewed and agree with nursing and triage notes Were old charts reviewed (outside hosp., previous admission, EMS record, old EKG, old radiological studies, urgent care reports/EKG's, senior living records)? Report findings @ -No old charts were reviewed Differential Diagnosis (chest pain, altered mental status, abdominal pain women, abdominal pain men, vaginal bleeding, weakness, fever, dyspnea, syncope, headache, dizziness, GI bleed, back pain, seizure, CVA, palpatations, mental health, musculoskeletal)? @ -n differential Mental Health Depression, anxiety, bipolar, psychosis, schizophrenia, borderline personality, situational depression, adjustment disorder, behavioral disorder, brain tumor, malingering, substance abuse, encephalopathy, medication reaction, dementia, hypothyroidism, degenerative neurologic disorder, lupus.... This is not meant to be all-inclusive list e EKG interpreted by me (3pts min.). @ -As above X-rays interpreted by me (1pt min.). @ -None done CT interpreted by me (1pt min.). @ -None done U/S interpreted by me (1pt. min.). @ -None done What testing was considered but not performed or refused? (CT, X-rays, U/S, labs)? Why? @ -None What meds were considered but not given or refused? Why? @ -None Did you discuss the management of the patient with other professionals (professionals i.e. , PA, AUTOMOBILE BODY REPAIR CHIEF, lab, RT, psych nurse, nursing home social worker, orthotics assistant, teacher, animal control officer, welfare case worker)? Give summary @ -Case was discussed with mental health worker with plans for discharge and follow-up [facility]. Was smoking cessation discussed for >3mins.? @ -No Was critical care preformed (if so, how long)? @ -No Were there social determinants of health that impacted care today? How? (Homelessness, low income, unemployed, alcoholism, drug addiction, transportation, low edu. Level, literacy, decrease access to med. care, senior care, rehab)? @ -No Was there de-escalation of care discussed even if they declined (Discuss DNR or withdrawal of care, Hospice)? DNR status @ -No What co-morbidities impacted this encounter? (DM, HTN, Smoking, COPD, CAD, Cancer, CVA, ARF, Chemo, Hep., AIDS, mental health diagnosis, sleep apnea, morbid obesity)? @ -None Was patient admitted / discharged? Hospital course, mention meds given and route, prescriptions, significant lab abnormalities, going to OR and other pertinent info. @ -Patient reevaluated and resting comfortably in bed. Patient and family updated on plan Undiagnosed new problem with uncertain prognosis? @ -No Drug Therapy requiring intensive monitoring for toxicity (Heparin, Nitro, Insulin, Cardizem)? @ -No Were any procedures done? @ -No Diagnosis/symptom? @ -Hallucinations Acute, or Chronic, or Acute on Chronic? @ -Acute on chronic Uncomplicated (without systemic symptoms) or Complicated (systemic symptoms)? @ -Default Side effects of treatment? @ -No Exacerbation, Progression, or Severe Exacerbation? @ -No Poses a threat to life or bodily function? How? (Chest pain, [place], [place], pneumonia, PE, COPD, DKA, ARF, appy, cholecystitis, CVA, Diverticulitis, Homicidal, Suicidal, threat to staff... and all critical care pts) @ -No Disposition Clinical Impression: Hallucinations Disposition: HOME SELF-CARE Condition: Stable Instructions (If sedation given, give patient instructions): Bipolar Disorder (ED), Hallucinations (ED) Additional Instructions: Please do follow-up with primary care physician in the next day or 2 for recheck. Please also follow-up with [facility] tomorrow. Return for thoughts of self- harm, worsening symptoms or other concerns. Is patient prescribed a controlled substance at d/c from ED?: No Referrals: Anthony Delcid DO [Primary Care Provider] - 1-2 days Time of Disposition: 13:58
[2023-12-22 09:56] VITALS: RESP 18; TEMP 98.2
[2023-12-22 14:43] VITALS: BP 163/101; PULSE 93
== END 2023-12-22 14:18 | disposition home or self-care (01) ==
LOC: EC 09:01
DX: R44.3 Hallucinations, unspecified (principal); J45.909 Unspecified asthma, uncomplicated; F41.9 Anxiety disorder, unspecified; F31.9 Bipolar disorder, unspecified; F17.200 Nicotine dependence, unspecified, uncomplicated; F12.90 Cannabis use, unspecified, uncomplicated; Z79.899 Other long term (current) drug therapy
CPT/HCPCS: 82075; 99284

== ENCOUNTER 2024-04-02 12:44 | Inpatient (IN) | payer MEDICARE, MEDICAID ==
--- NOTE | 2024-04-02 14:22 | ED ---
Psych HPI - General Chief Complaint: Psychiatric Symptoms Stated Complaint: mental health Time Seen by Provider: 04/02/24 13:12 Source: patient, family, RN notes reviewed Mode of arrival: ambulatory Limitations: no limitations - History of Present Illness Initial Comments: 29-year-old male presents emergency department with chief complaint of wanting psychiatric evaluation. Patient states he has been diagnosed with borderline personality disorder patient states that he has been hearing voices which he always hears but has worsened. He denies being suicidal homicidal denies drug or alcohol abuse patient states he is on medications has not missed any of his doses he does receive an injection. Patient is followed by [facility]. - Related Data Home Medications Medication Instructions Recorded Confirmed ARIPiprazole IM SYRINGE [Abilify 400 mg IM Q28D 09/12/22 04/02/24 Maintena Syringe] Mirtazapine 15 mg PO HS 04/02/24 04/02/24 Sublocade 300mg 300 mg SQ QMONTHLY 04/02/24 04/02/24 Allergies Allergy/AdvReac Type Severity Reaction Status Date / Time No Known Allergies Allergy Verified 04/02/24 16:16 Review of Systems ROS Statement: Those systems with pertinent positive or pertinent negative responses have been documented in the HPI. ROS Other: All systems not noted in ROS Statement are negative. Past Medical History Past Medical History: No Reported History, Asthma Additional Past Medical History / Comment(s): HPV- resolved History of Any Multi-Drug Resistant Organisms: None Reported Past Surgical History: No Surgical Hx Reported Additional Past Surgical History / Comment(s): wisdom teeth Past Anesthesia/Blood Transfusion Reactions: No Reported Reaction Past Psychological History: Anxiety, Bipolar, Depression, Schizophrenia Smoking Status: Current every day smoker Past Alcohol Use History: None Reported Past Drug Use History: Marijuana - Past Family History Father Additional Family Medical History / Comment(s): Father is alive at age 52 with no major medical problems. Mother Additional Family Medical History / Comment(s): Mother is alive at age 52 with no major medical problems. Brother(s) Additional Family Medical History / Comment(s): Patient has one half-brother and one half-sister with no major medical problems. General Exam Limitations: no limitations General appearance: alert, in no apparent distress Head exam: Present: atraumatic, normocephalic, normal inspection Eye exam: Present: normal appearance, PERRL, EOMI. Absent: scleral icterus, conjunctival injection, periorbital swelling ENT exam: Present: normal exam, mucous membranes moist Neck exam: Present: normal inspection, full ROM. Absent: tenderness, meningismu s, lymphadenopathy Respiratory exam: Present: normal lung sounds bilaterally. Absent: respiratory distress, wheezes, rales, rhonchi, stridor Cardiovascular Exam: Present: regular rate, normal rhythm, normal heart sounds. Absent: systolic murmur, diastolic murmur, rubs, gallop, clicks Neurological exam: Present: alert, oriented X3 Psychiatric exam: Present: anxious Course Vital Signs 04/02/24 04/02/24 12:52 17:52 Temperature 98 F 97.9 F Pulse Rate 80 82 Respiratory 18 18 Rate Blood Pressure 111/70 118/74 O2 Sat by Pulse 98 96 Oximetry Medical Decision Making - Medical Decision Making Was pt. sent in by a medical professional or institution (, PA, EMPLOYEE WELLNESS/FITNESS COORDINATOR, urgent care, hospital, or fdc...) When possible be specific @ -No Did you speak to anyone other than the patient for history (EMS, parent, family, police, friend...)? What history was obtained from this source @ -No Did you review nursing and triage notes (agree or disagree)? Why? @ -I reviewed and agree with nursing and triage notes Were old charts reviewed (outside hosp., previous admission, EMS record, old EKG, old radiological studies, urgent care reports/EKG's, fdc records)? Report findings @ -No old charts were reviewed Differential Diagnosis (chest pain, altered mental status, abdominal pain women, abdominal pain men, vaginal bleeding, weakness, fever, dyspnea, syncope, headache, dizziness, GI bleed, back pain, seizure, CVA, palpatations, mental health, musculoskeletal)? @ -Differential Mental Health Depression, anxiety, bipolar, psychosis, schizophrenia, borderline personality, situational depression, adjustment disorder, behavioral disorder, brain tumor, malingering, substance abuse, encephalopathy, medication reaction, dementia, hypothyroidism, degenerative neurologic disorder, lupus.... This is not meant to be all-inclusive list EKG interpreted by me (3pts min.). @ -None X-rays interpreted by me (1pt min.). @ -None done CT interpreted by me (1pt min.). @ -None done U/S interpreted by me (1pt. min.). @ -None done What testing was considered but not performed or refused? (CT, X-rays, U/S, labs)? Why? @ -None What meds were considered but not given or refused? Why? @ -None Did you discuss the management of the patient with other professionals (professionals i.e. , PA, EMPLOYEE WELLNESS/FITNESS COORDINATOR, lab, RT, psych nurse, social welfare research worker, exterior door installer, teacher, weapons officer naval activity, oil field caser)? Give summary @ -EPS who evaluated the patient discussed case with psychiatry who recommended inpatient treatment Was smoking cessation discussed for >3mins.? @ -No Was critical care preformed (if so, how long)? @ -No Were there social determinants of health that impacted care today? How? (Homelessness, low income, unemployed, alcoholism, drug addiction, transportation, low edu. Level, literacy, decrease access to med. care, skilled nursing, rehab)? @ -No Was there de-escalation of care discussed even if they declined (Discuss DNR or withdrawal of care, Hospice)? DNR status @ -No What co-morbidities impacted this encounter? (DM, HTN, Smoking, COPD, CAD, Cancer, CVA, ARF, Chemo, Hep., AIDS, mental health diagnosis, sleep apnea, morbid obesity)? @ -None Was patient admitted / discharged? Hospital course, mention meds given and route, prescriptions, significant lab abnormalities, going to OR and other pertinent info. @ -Admitted to [facility] for psychiatric treatment Undiagnosed new problem with uncertain prognosis? @ -No Drug Therapy requiring intensive monitoring for toxicity (Heparin, Nitro, Insulin, Cardizem)? @ -No Were any procedures done? @ -No Diagnosis/symptom? @ -Psychosis bipolar disorder Acute, or Chronic, or Acute on Chronic? @ -Acute Uncomplicated (without systemic symptoms) or Complicated (systemic symptoms)? @ -Complicated Side effects of treatment? @ -No Exacerbation, Progression, or Severe Exacerbation? @ -No Poses a threat to life or bodily function? How? (Chest pain, [place], [place], pneumonia, PE, COPD, DKA, ARF, appy, cholecystitis, CVA, Diverticulitis, Homicidal, Suicidal, threat to staff... and all critical care pts) @ -No - Lab Data Result diagrams: 04/03/24 11:16 04/03/24 11:16 Lab Results 04/02/24 04/02/24 04/02/24 Range/Units 14:41 14:41 15:47 Urine Color Yellow Urine Appearance Cloudy (Clear) Urine pH 7.0 (5.0-8.0) Ur Specific [place] 1.028 (1.001-1.035) Urine Protein Negative (Negative) Urine Glucose (UA) Negative (Negative) Urine Ketones Negative (Negative) Urine Blood Negative (Negative) Urine Nitrite Negative (Negative) Urine Bilirubin Negative (Negative) Urine Urobilinogen <2.0 (<2.0) mg/dL Ur Leukocyte Esterase Negative (Negative) Urine RBC <1 (0-5) /hpf Urine WBC 2 (0-5) /hpf Ur Squamous Epith Cells <1 (0-4) /hpf Amorphous Sediment Occasional H (None) /hpf Urine Mucus Few H (None) /hpf Urine Opiates Screen Not Detected (NotDetected) Ur Oxycodone Screen Not Detected (NotDetected) Urine Methadone Screen Not Detected (NotDetected) Ur Barbiturates Screen Not Detected (NotDetected) U Tricyclic Antidepress Not Detected (NotDetected) Ur Phencyclidine Scrn Not Detected (NotDetected) Ur Amphetamines Screen Not Detected (NotDetected) U Methamphetamines Scrn Not Detected (NotDetected) U Benzodiazepines Scrn Not Detected (NotDetected) Urine Cocaine Screen Not Detected (NotDetected) U Marijuana (THC) Screen Detected H (NotDetected) SARS-CoV-2 (PCR) Not Detected (Not Detectd) Disposition Clinical Impression: Bipolar disorder Disposition: TRANSFER TO PSYCH HOSP/UNIT
[2024-04-02 15:06] LABS: Amphetamine Screen,Urine Not Detected (NotDetected); Barbiturate Screen,Urine Not Detected (NotDetected); Benzodiazepines Screen,Urine Not Detected (NotDetected); Cocaine Screen,Urine Not Detected (NotDetected); Methadone Screen, Urine Not Detected (NotDetected); Opiate Screen,Urine Not Detected (NotDetected); Oxycodone Screen, Urine Not Detected (NotDetected); Phencyclidine Screen,Urine Not Detected (NotDetected); Tricyclic Antidepressant,Urine Not Detected (NotDetected); Urn Cannabinoid Scrn Detected (NotDetected)
[2024-04-02] MEDS ORDERED: MAG HYDROX/AL HYDROX/SIMETH 355 ML BOTTLE PO PRN (17:49)
[2024-04-02] MEDS ORDERED: MAGNESIUM HYDROXIDE 2,400 MG/30 ML CUP PO PRN (17:49)
[2024-04-02] MEDS ORDERED: IBUPROFEN 600 MG TAB PO PRN (17:49)
[2024-04-02] MEDS ORDERED: ACETAMINOPHEN TAB 325 MG TAB PO PRN (17:49)
[2024-04-02] MEDS: MIRTAZAPINE 15 MG TAB PO SCH (21:09)
[2024-04-02] MEDS: NICOTINE GUM (POLACRILEX) 2 MG GUM BUCCAL PRN (21:09)
--- NOTE | 2024-04-03 00:11 | P.CONS ---
History of Present Illness - Reason for Consult Consult date: 04/03/24 - History of Present Illness The patient is a 29-year-old male with no known PMH who had presented to the emergency room with complaints of hallucinations. Patient was admitted to mental health unit where he was seen and evaluated. The patient reports that he has been experiencing auditory hallucinations for the past several days. He denied any physical complaints at the time of interview. Denied experiencing chest discomfort, shortness of breath, fever, chills, cough, nausea, vomiting, abdominal pain, diarrhea. Denied illicit substance or alcohol use. Does report smoking a pack of cigarettes per week. Does also admit to marijuana use recreationally. Review of systems: Pertinent positives and negatives as discussed in HPI, a complete review of systems was performed and all other systems are negative. Physical examination: General: non toxic, no distress, appears at stated age, normal weight Derm: no unusual rashes/lesions, no unusual ecchymoses, warm, dry Head: atraumatic, normocephalic, symmetric Eyes: EOMI, no lid lag, anicteric sclera ENT: Nose and ears atraumatic, no thrush, no pharyngeal erythema Neck: trachea midline, supple Mouth: no lip lesion, mucus membranes moist Cardiovascular: S1S2 reg, no murmur, no edema Lungs: CTA bilateral, no rhonchi, no rales , no accessory muscle use Abdominal: soft, nontender to palpation, no guarding Ext: no gross muscle atrophy, no contractures, Neuro: No gross focal neuro deficits noted Psych: Alert, oriented, appropriate affect Assessment: Marijuana abuse Hallucinations Imaging: None performed Data Review: Reviewed with urine toxicology positive for marijuana with coronavirus PCR negative Plan: Advised on the importance of cessation of marijuana use Defer management of hallucinations to primary psychiatry service Thank you for allowing us to participate in the care of this patient. We will follow peripherally. Do not hesitate to contact us with questions. Someone can be reached from the [facility] hospitalist group at all hours of the day at [phone]. Past Medical History Past Medical History: No Reported History, Asthma Additional Past Medical History / Comment(s): HPV- resolved History of Any Multi-Drug Resistant Organisms: None Reported Past Surgical History: No Surgical Hx Reported Additional Past Surgical History / Comment(s): wisdom teeth Past Anesthesia/Blood Transfusion Reactions: No Reported Reaction Past Psychological History: Anxiety, Bipolar, Depression, Schizophrenia Smoking Status: Current every day smoker Past Alcohol Use History: None Reported Past Drug Use History: Marijuana - Past Family History Father Additional Family Medical History / Comment(s): Father is alive at age 52 with no major medical problems. Mother Additional Family Medical History / Comment(s): Mother is alive at age 52 with no major medical problems. Brother(s) Additional Family Medical History / Comment(s): Patient has one half-brother and one half-sister with no major medical problems. Medications and Allergies Home Medications Medication Instructions Recorded Confirmed Type ARIPiprazole IM SYRINGE [Abilify 400 mg IM Q28D 09/12/22 04/02/24 History Maintena Syringe] Mirtazapine 15 mg PO HS 04/02/24 04/02/24 History Sublocade 300mg 300 mg SQ QMONTHLY 04/02/24 04/02/24 History Allergies Allergy/AdvReac Type Severity Reaction Status Date / Time No Known Allergies Allergy Verified 04/02/24 16:16 Physical Exam Vitals: Vital Signs Temp Pulse Pulse Resp BP BP Pulse Ox 04/02/24 18:53 98.0 F 76 16 137/63 04/02/24 17:52 97.9 F 82 18 118/74 96 04/02/24 12:52 98 F 80 18 111/70 98 Intake and Output 04/02/24 04/02/24 04/03/24 14:59 22:59 06:59 Other: Weight 90.718 kg 94.914 kg Results Labs: Abnormal Lab Results - Last 24 Hours (Table) 04/02/24 Range/Units 14:41 U Marijuana (THC) Screen Detected H (NotDetected)
[2024-04-03 02:21] LABS: Amorphous Sediment,Urine Occasional /hpf; Appearance,Urine Cloudy (Clear); Bilirubin,Urine Negative (Negative); Blood,Urine Negative (Negative); Color,Urine Yellow; Glucose,Urine (UA) Negative (Negative); Ketones,Urine Negative (Negative); Leukocyte Esterase,Urine Negative (Negative); Mucus,Urine Few /hpf; Nitrite,Urine Negative (Negative); Protein,Urine Negative (Negative); RBC,Urine <1 /hpf (0-5); Specific Gravity,Urine 1.028 (1.001-1.035); Squamous Epithelial Cell,Urine <1 /hpf (0-4); Urobilinogen,Urine <2.0 mg/dL (<2.0); WBC,Urine 2 /hpf (0-5)
[2024-04-03] MEDS ORDERED: NICOTINE 14MG/24HR PATCH TRANSDERM SCH (09:00)
[2024-04-03 12:18] LABS: Basophils % (A) 0 %; Eosinophils # (A) 0.2 k/uL (0-0.7); Eosinophils % (A) 3 %; HCT 43.8 % (39.0-53.0); HGB 13.9 gm/dL (13.0-17.5); Lymphocytes # (A) 1.5 k/uL (1.0-4.8); Lymphocytes % (A) 28 %; MCHC 31.8 g/dL (31.0-37.0); MCV 100.6 fL (80.0-100.0); Monocytes # (A) 0.2 k/uL (0-1.0); Monocytes % (A) 4 %; Neutrophils # (A) 3.5 k/uL (1.3-7.7); Neutrophils % (A) 65 %; Platelet Count 228 k/uL (150-450); RBC 4.36 m/uL (4.30-5.90); RDW 12.5 % (11.5-15.5); WBC 5.5 k/uL (3.8-10.6)
[2024-04-03 12:34] LABS: ALT 44 U/L (4-49); AST 58 U/L (17-59); African American GFR (CKD) >90 (>60 ml/min/1.73 sqM); Albumin 3.7 g/dL (3.5-5.0); Alkaline Phosphatase 64 U/L (38-126); Anion Gap 5 mmol/L; Blood Urea Nitrogen 15 mg/dL (9-20); Carbon Dioxide 28 mmol/L (22-30); Chloride 105 mmol/L (98-107); Glucose 90 mg/dL (74-99); Non-African American GFR(CKD) >90 (>60 ml/min/1.73 sqM); Potassium 4.6 mmol/L (3.5-5.1); Sodium 138 mmol/L (137-145); Total Bilirubin 0.6 mg/dL (0.2-1.3); Total Protein 6.3 g/dL (6.3-8.2)
[2024-04-03 12:35] LABS: ALT 44 U/L (4-49); AST 59 U/L (17-59); African American GFR (CKD) >90 (>60 ml/min/1.73 sqM); Albumin 3.7 g/dL (3.5-5.0); Alkaline Phosphatase 63 U/L (38-126); Anion Gap 6 mmol/L; Bilirubin, Delta 0.2 mg/dL (0.0-0.2); Bilirubin,Unconjugated 0.4 mg/dL (0.0-1.1); Blood Urea Nitrogen 16 mg/dL (9-20); Calcium 8.8 mg/dL (8.4-10.2); Carbon Dioxide 27 mmol/L (22-30); Chloride 104 mmol/L (98-107); Glucose 90 mg/dL (74-99); Non-African American GFR(CKD) >90 (>60 ml/min/1.73 sqM); Potassium 4.6 mmol/L (3.5-5.1); Sodium 137 mmol/L (137-145); Total Bilirubin 0.6 mg/dL (0.2-1.3); Total Protein 6.3 g/dL (6.3-8.2)
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
[2024-04-03] MEDS: DIVALPROEX 250 MG TABLET.DR PO SCH (21:00)
[2024-04-03] MEDS: BENZTROPINE MESYLATE 0.5 MG TAB PO SCH (21:01)
[2024-04-03 21:10] LABS: Chol/HDL Ratio 3.04 Ratio; LDL Cholesterol,Calculated 72.3 mg/dL (0.0-131.0)
--- NOTE | 2024-04-04 13:54 | P.PN ---
Subjective Progress Note Date: 04/04/24 Subjective data: Patient was seen where he was walking up and down the hallway patient stated that he decided to come here because he wanted to clarify that he has borderline personality disorder He states that the police however grabbed him and brought him on the unit where he does not belong He states that he chronically hears voices but he does not tell him to hurt himself or do anything harmful He states that he smokes cannabis on a regular basis but is not doing the drugs He states that he is currently not employed but is looking for several options He denies any suicidal or homicidal ideations or plans MSE: Alert and attentive. Orientation times three Dressed and Groomed: Appropriately. Pleasant and cooperative. Psychomotor Activity: Normal. Speech: Normal in tone, quality, and quantity. Mood: Flat. Affect: Consistent with mood. SI or HI: None. Perceptual disturbance: None. Thought Content: The patient feels that the medications are turning him in to a girl by producing Estrogen. Thought Process: Normal. Cognition: Intact Judgment and Insight: Poor AIMS: Normal Labs: Available, Reviewed with patient. Diagnosis: Schizophrenia, Undifferentiated Plan and Recommendations: Continue current Medications. Monitor MS and side effects of medications and adjust medications accordingly. Provide supportive psychotherapy and psychoeducation. The patient provided Substance abuse counseling. Smoke cessation therapy. The patient to see a therapist on a regular basis once a week/ attend pop Milieu. Medication Consent with explanation of risk/benefits and side effects: Explained and obtained.04/03/24 14:18 Balwinder Davis MD Objective - Vital Signs Vital signs: Vital Signs Temp 98.0 F 04/04/24 06:22 Pulse 75 04/04/24 06:22 Resp 18 04/04/24 06:22 BP 138/76 04/04/24 06:22 Pulse Ox 99 04/04/24 06:22 FiO2 Intake & Output 04/03/24 04/04/24 04/04/24 18:59 06:59 18:59 Weight 94.914 kg - Labs CBC & Chem 7: 04/03/24 11:16 04/03/24 11:16
--- NOTE | 2024-04-05 12:30 | P.PN ---
Subjective Progress Note Date: 04/05/24 Subjective data: patient was seen in his room where he was resting comfortably and set up and was cooperative Patient says that he has always heard voices in his head and that there is nothing you He denies that he has been suicidal or homicidal He says that he is on disability and that he seems to be able to function well overall He denies any intention of harming himself or others He does not feel that he needs to be in the hospital at this time She denies any command hallucinations He denies any suicidal or homicidal ideations or plans MSE: Alert and attentive. Orientation times three Dressed and Groomed: Appropriately. Pleasant and cooperative. Psychomotor Activity: Normal. Speech: Normal in tone, quality, and quantity. Mood: Flat. Affect: Consistent with mood. SI or HI: None. Perceptual disturbance: None. Thought Content: The patient feels that the medications are turning him in to a girl by producing Estrogen. Thought Process: Normal. Cognition: Intact Judgment and Insight: concrete AIMS: Normal Labs: Available, Reviewed with patient. Diagnosis: Schizophrenia, Undifferentiated Plan and Recommendations: Continue current Medications. Monitor MS and side effects of medications and adjust medications accordingly. Provide supportive psychotherapy and psychoeducation. The patient provided Substance abuse counseling. Smoke cessation therapy. The patient to see a therapist on a regular basis once a week/ attend pop Milieu. Medication Consent with explanation of risk/benefits and side effects: Explained and obtained.04/03/24 14:18 tentative discharge in one to 3 days Balwinder Davis MD Objective - Vital Signs Vital signs: Vital Signs Temp 98.0 F 04/04/24 06:22 Pulse 75 04/04/24 06:22 Resp 18 04/04/24 06:22 BP 138/76 04/04/24 06:22 Pulse Ox 99 04/04/24 06:22 FiO2 Intake & Output 04/04/24 04/05/24 04/05/24 18:59 06:59 18:59 Weight 94.914 kg - Labs CBC & Chem 7: 04/03/24 11:16 04/03/24 11:16
[2024-04-06] MEDS: DIVALPROEX 250 MG TABLET.DR PO SCH (16:17)
--- NOTE | 2024-04-06 16:52 | P.PN ---
Progress Note - Text Progress Note Date: 04/06/24 In-Patient Follow-up Chief Complaint: I am doing fine Subjective: The patient noted that he is doing fine. The patient has not been taking any medications for his voices. He thinks that his voices are fine. He believes that he has multiple personality disorder. He does not want to take any medications because they all give him side effects. The patient has not taken his LA Maintena since January. Later, patient agreed to take Invega sustenna. Discussed risk/benefits and side effects. The patient consented. Initiate Invega 3 mg daily. Leading questions: The patient denied Depression and Anxiety. Denied SI or HI. Admits to hearing multiple voices. Sleep and Appetite: Fine. Interim History: Behavioral Changes: PRN meds/isolation/restraints/ change in status: None Change in medical condition: No change. Change in medications: No change. Side effects from Medications: None. Objective- MSE: Alert and attentive. Orientation times three. Dressed and Groomed: Appropriately. Pleasant and cooperative. Psychomotor Activity: Normal. Speech: Normal in tone, quality, and quantity. Mood: I am fine Affect: Tense SI or HI: None. Perceptual disturbance: The patient hearing multiple voices. Thought Content: No paranoia or other delusional thinking noted. Thought Process: Normal. Cognition: Intact Judgment and Insight: Poor in to illness: Operational judgement is fine. AIMS: Normal. Labs: No new labs. Diagnosis: No Change. Plan and recommendation: Continue current Medications. Monitor MS and side effects of medications and adjust medications accordingly. Provide supportive psychotherapy. The patient provided psychoeducation. The patient provided Substance abuse counseling. Smoke cessation therapy. The patient to continue attending the pop activities. Medication Consent with explanation of risk/benefits and side effects: Explained and obtained.
[2024-04-07] MEDS: LORazepam 1 MG TAB PO PRN (01:28)
[2024-04-07] MEDS: haloperidoL 5 MG TAB PO PRN (01:28)
[2024-04-07] MEDS: PALIPERIDONE 3 MG TAB.ER.24 PO SCH (08:27)
--- NOTE | 2024-04-07 17:10 | P.PN ---
Progress Note - Text Progress Note Date: 04/07/24 In-Patient Follow-up Chief Complaint: I have nightmares with Invega Subjective: The patient noted that he did not sleep well last night. He feels tired today. The patient looked a little sluggish. He noted that he has taken Invega in the past. He noted taking it up to 9 mg. The patient noted that gets side effects from Invega. Later he stated that Invega is good. The nightmares happen infrequently with Invega. It is fine otherwise. The dose to be increased to 6 mg at bedtime. Discussed with patient he agreed and consented. The patient has been attending pop milieu and has been interacting with staff and peers appropriately. According to the nursing staff, the patient was up last night and was noted to be talking to himself loudly and banging on the mckeon. Leading questions: The patient denied Depression and Anxiety. Denied SI or HI. Denied symptoms consistent with psychosis Sleep and Appetite: Appetite good. Sleep fair. Interim History: Behavioral Changes: PRN meds/isolation/restraints/ change in status: The patient got prn medication last night Change in medical condition: No change. Change in medications: Dose of Invega increase to 3mg bid. Side effects from Medications: None. Objective- MSE: Alert and attentive. Orientation times three. Dressed and Groomed: Appropriately. Pleasant and cooperative. Psychomotor Activity: Normal. Speech: Normal in tone, quality, and quantity. Mood: Depressed and anxious. Affect: Perplexed and tired SI or HI: None. Perceptual disturbance: No overt hallucinations noted Thought Content: No overt paranoia or other delusional thinking noted. Thought Process: Normal. Cognition: Intact Judgment and Insight: fair. AIMS: Normal. Labs: Reviewed with patients. Diagnosis: No change Plan and recommendation: Continue current Medications. Monitor MS and side effects of medications and adjust medications accordingly. Provide supportive psychotherapy. The patient provided psychoeducation. The patient provided Substance abuse counseling. Smoke cessation therapy. The patient to continue attending the pop activities. Medication Consent with explanation of risk/benefits and side effects: Explained and obtained.
[2024-04-07] MEDS: PALIPERIDONE 6 MG TAB.ER.24 PO SCH (19:49)
[2024-04-08] MEDS: MIRTAZAPINE 15 MG TAB PO SCH (19:48)
[2024-04-08] MEDS: clonazePAM 0.5 MG TAB PO SCH (19:49)
--- NOTE | 2024-04-08 21:36 | P.PN ---
Progress Note - Text Progress Note Date: 04/08/24 In-Patient Follow-up Chief Complaint: I am feeling good Subjective: The patient noted he is tired because he could not sleep last night. The patient noted that he slept during the day and did not feel sleepy at night. He was walking in the hallways and was not redirectable. He has been noticed talking to himself by the staff. The patient did get Haldol and Ativan in the morning around 3 am causing him to be sedated and sleepy during this session. Leading questions: The patient denied Depression and Anxiety. Denied SI or HI. Admitted to hearing voices. Denied being paranoid. Sleep and Appetite: Sleep poor. Appetite good. Interim History: Behavioral Changes: PRN meds/isolation/restraints/ change in status: The patient was hearing voices and walking in the hallways. He was not redirectable. He was given Haldol 5mg and Ativan 1mg. around 3am. Change in medical condition: No change. Change in medications: Depakote decreased to 250mg bid. Added Benadryl 50 mg po hs. Side effects from Medications: None. Objective- MSE: Alert and attentive. Orientation times three. Dressed and Groomed: Appropriately. Pleasant and cooperative. Psychomotor Activity: Normal. Speech: Normal in tone, quality, and quantity. Mood: Good. Affect: Flat SI or HI: None. Perceptual disturbance: The patient still hears voices but they just comment on what he is doing. He does get any commends from the voices. He stated that the voices are not bothering him. Thought Content: No paranoia or other delusional thinking noted. Thought Process: Normal. Cognition: Intact Judgment and Insight: Poor AIMS: Normal. Labs: No new labs. Judgment and Insight: Fair AIMS: Normal Labs: Non available, ordered. Diagnosis: No change. Plan and Recommendations: Continue current Medications. Reduce Depakote to 250 mg bid. Add Benadryl 50 mg qhs. Monitor MS and side effects of medications and adjust medications accordingly. Provide supportive psychotherapy and psychoeducation. The patient provided Substance abuse counseling. Smoke cessation therapy. The patient to attend pop Milieu. Medication Consent with explanation of risk/benefits and side effects: Explained and obtained.
[2024-04-09] MEDS: LORazepam 2 MG/ML INJ IM PRN (01:24)
[2024-04-09] MEDS: HALOPERIDOL LACTATE 5 MG/ML 1 ML VIAL IM PRN (01:24)
[2024-04-09] MEDS ORDERED: HALOPERIDOL LACTATE 5 MG/ML 1 ML VIAL IM PRN (13:33)
--- NOTE | 2024-04-09 20:35 | P.PN ---
Progress Note - Text Progress Note Date: 04/09/24 In-Patient Follow-up Chief Complaint: I feel very tired Subjective: The patient was very tired and sleeping during this session. The patient noted he got a shot Haldol. He noted that it is too strong. He noted that after getting it he sleeps all day and then can not sleep at night. The patient has the perception that his sleep is interrupted because they come in his and wake him up. The patient was explained that is a routine for all the patient but they do not wake up any patient. They just do a visual check-up unless the patient is not sleeping. Explained patient the patient that Haldol dose will be reduced and Invega will be increased 9 mg in divided doses. He will also get Benadryl to help him sleep at night. The patient understood and consented. Leading questions: The patient admitted to Depression and Anxiety. Denied SI or HI. Denied symptoms consistent with psychosis Sleep and Appetite: Sleep is poor. Appetite is fine. Interim History: Behavioral Changes: PRN meds/isolation/restraints/ change in status: The patient was up at night and was noted to be talking to himself. Change in medical condition: No change. Change in medications: The patient Invega is increased to 9 mg. Benadryl has been added and Haldol is decreased. Side effects from Medications: Excessive sedation. Objective- MSE: Alert and attentive. Orientation times three. Dressed and Groomed: Appropriately. Pleasant and cooperative. Psychomotor Activity: reduced. Speech: Normal in tone, quality, and underproductive. Mood: Depressed. Affect: Consistent with mood. SI or HI: None. Perceptual disturbance: None. Thought Content: No paranoia or other delusional thinking noted. Thought Process: Normal. Cognition: Intact Judgment and Insight: Fair. AIMS: Normal. Labs: No new labs. Vital signs: Diagnosis: Plan and recommendation: Continue current Medications. Increase Invega to 9 mg. Add Benadryl 50 mg at bedtime. Reduce Remeron to 15 mg. Reduce Haldol to 2 mg. Monitor MS and side effects of medications and adjust medications accordingly. Provide supportive psychotherapy. The patient provided psychoeducation. The patient provided Substance abuse counseling. Smoke cessation therapy. The patient to continue attending the pop activities.
[2024-04-09] MEDS: MIRTAZAPINE 15 MG TAB PO SCH (21:29)
[2024-04-10] MEDS: PALIPERIDONE 3 MG TAB.ER.24 PO SCH (07:42)
--- NOTE | 2024-04-10 20:55 | P.PN ---
Progress Note - Text Progress Note Date: 04/10/24 In-Patient Follow-up Chief Complaint: I am better Subjective: The patient noted that he is not feeling as sedated as last few days. The patient did not sleep well last night. He had slept most the day yesterday. The patient acknowledges that he talks to the voices. He indicated t he voices are soothing to him. He noted that he does hear command hallucinations. They tell him what is right or wrong and comfort him. As per mother, the patient can get loud at times. The patient has been pleasant otherwise. He was attending groups and interacting well with staff and peers. He stopped doing it for last 2 days because of disturbed sleep cycle. The patient has no side effects from medications. The patient was disappointed about discharge. He was explained the reason and provided support and reassurance. The patient understood. Leading questions: The patient admitted to Depression and Anxiety because being in the hospital. Denied SI or HI. Admitted to hearing voices. Sleep and Appetite: Sleep is impaired. Appetite is fine. Interim History: Behavioral Changes: PRN meds/isolation/restraints/ change in status: The patient was up last night and was noted be talking to himself. He was given Ativan. Change in medical condition: No change. Change in medications: Benadryl 50 mg hs prn was added to her treatment. Invega was increased to 9 mg in split doses. Side effects from Medications: None. Objective- MSE: Alert and attentive. Orientation times three. Dressed and Groomed: Appropriately. Pleasant and cooperative. Psychomotor Activity: Normal. Speech: Normal in tone, quality, and quantity. Mood: Upset for not getting discharged otherwise fine. Affect: Consistent with mood. SI or HI: None. Perceptual disturbance: Auditory hallucinations. No command hallucinations. Thought Content: No paranoia or other delusional thinking noted. Thought Process: Normal. Cognition: Intact Judgment and Insight: Fair. AIMS: Normal. Labs: No new labs. Diagnosis: No change. Plan and recommendation: Continue current Medications. Monitor MS and side effects of medications and adjust medications accordingly. Provide supportive psychotherapy. The patient provided psychoeducation. The patient provided Substance abuse counseling. Smoke cessation therapy. The patient to continue attending the pop activities. Medication Consent with explanation of risk/benefits and side effects: Explained and obtained.
[2024-04-10] MEDS: diphenhydrAMINE 50 MG CAP PO PRN (21:37)
--- NOTE | 2024-04-11 11:05 | P.PN ---
Subjective Progress Note Date: 04/11/24 Principal diagnosis: schizophrenia chronic undifferentiated type Subjective data: the patient seemed drowsy and talks with a slight lisp seem to have some difficulty keeping his eyes open patient admits that his medications have been increased recently Patient says that he has always heard voices in his head and that there is nothing you He denies that he has been suicidal or homicidal He says that he is on disability and that he seems to be able to function well overall He denies any intention of harming himself or others He does not feel that he needs to be in the hospital at this time She denies any command hallucinations He denies any suicidal or homicidal ideations or plans MSE: Alert and attentive. Orientation times three Dressed and Groomed: Appropriately. Pleasant and cooperative. Psychomotor Activity: appears hypoactive slightly sedated Speech: mumbling his answers slightly slurred speech Mood: Flat. Affect: Consistent with mood. SI or HI: None. Perceptual disturbance: None. Thought Content: blunted talked mainly about his chronic condition Thought Process: blunted Cognition: Intact Judgment and Insight: concrete AIMS: Normal Labs: Available, Reviewed with patient. Diagnosis: Schizophrenia, Undifferentiated Plan and Recommendations: reviewed. Plan Plan and recommendation: Continue current Medications. Monitor MS and side effects of medications and adjust medications accordingly. Provide supportive psychotherapy. The patient provided psychoeducation. The patient provided Substance abuse counseling. Smoke cessation therapy. The patient to continue attending the pop activities. Medication Consent with explanation of risk/benefits and side effects: Explained and obtained. I possibly need a slight decrease in the medications if the above affect is not 5 when necessary Active Medications Generic Name Dose Route Start Last Admin Trade Name Hieu PRN Reason Stop Dose Admin Acetaminophen 650 mg 04/02/24 17:49 Acetaminophen Tab 325 Mg Tab PO Q4HR PRN Mild Pain (Scale 1 to 3) Al Hydroxide/Mg Hydroxide 30 ml 04/02/24 17:49 Mag Hydrox/Al Hydrox/Simeth 355 Ml Bottle PO Q4HR PRN GI Upset Clonazepam 0.5 mg 04/08/24 21:00 04/10/24 19:59 Clonazepam 0.5 Mg Tab PO 0.5 mg HS ZAK Administration Diphenhydramine HCl 50 mg 04/09/24 13:38 04/10/24 21:37 Diphenhydramine 50 Mg Cap PO 50 mg HS PRN Administration Insomnia Divalproex Sodium 250 mg 04/06/24 16:00 04/11/24 08:16 Divalproex 250 Mg Tablet.Dr PO 250 mg TID ZAK Administration Haloperidol 2 mg 04/09/24 13:34 04/11/24 04:55 Haloperidol 2 Mg Tab PO 2 mg Q6HR PRN Administration Agitation Haloperidol Lactate 2 mg 04/09/24 13:33 Haloperidol Lactate 5 Mg/Ml 1 Ml Vial IM Q6HR PRN Severe Agitation Ibuprofen 600 mg 04/02/24 17:49 Ibuprofen 600 Mg Tab PO Q6HR PRN Moderate Pain (Scale 4 to 6) Lorazepam 1 mg 04/02/24 17:49 04/11/24 04:55 Lorazepam 1 Mg Tab PO 1 mg Q6HR PRN Administration Anxiety Lorazepam 1 mg 04/02/24 17:49 04/09/24 01:24 Lorazepam 2 Mg/Ml Inj IM 1 mg Q6HR PRN Administration Severe Agitation Magnesium Hydroxide 2,400 mg 04/02/24 17:49 Magnesium Hydroxide 2,400 Mg/30 Ml Cup PO DAILY PRN Constipation Mirtazapine 15 mg 04/09/24 21:00 04/10/24 19:59 Mirtazapine 15 Mg Tab PO 15 mg HS ZAK Administration Nicotine Polacrilex 2 mg 04/02/24 20:49 04/11/24 08:17 Nicotine Gum (Polacrilex) 2 Mg Gum BUCCAL 2 mg Q4HR PRN Administration Nicotine Cravings Paliperidone 6 mg 04/07/24 21:00 04/10/24 19:59 Paliperidone 6 Mg Tab.Er.24 PO 6 mg HS ZAK Administration Paliperidone 3 mg 04/10/24 09:00 04/11/24 08:16 Paliperidone 3 Mg Tab.Er.24 PO 3 mg DAILY ZAK Administration Balwinder Davis MD Objective - Vital Signs Vital signs: Vital Signs Temp 97.3 F L 04/11/24 04:58 Pulse 99 04/11/24 04:58 Resp 18 04/11/24 04:58 BP 133/72 04/11/24 04:58 Pulse Ox 98 04/11/24 04:58 FiO2 - Labs CBC & Chem 7: 04/03/24 11:16 04/03/24 11:16
--- NOTE | 2024-04-12 10:32 | P.PN ---
Subjective Progress Note Date: 04/12/24 Principal diagnosis: schizophrenia chronic undifferentiated type Subjective data: patient stated that is just waking up and that he is feeling okay He denies any changes or issues States that the voices are still there He denies any command hallucinations He says that there is somewhat gibberish and would sometimes give a running commentary but denies that the giving him any commands to do anything harmful to himself or others He denies that he has been suicidal or homicidal He says that he is on disability and that he seems to be able to function well overall He denies any intention of harming himself or others He does not feel that he needs to be in the hospital at this time She denies any command hallucinations He denies any suicidal or homicidal ideations or plans MSE: Alert and attentive. Orientation times three Dressed and Groomed: Appropriately. Pleasant and cooperative. Psychomotor Activity: appears hypoactive slightly sedated Speech: mumbling his answers slightly slurred speech Mood: Flat. Affect: Consistent with mood. SI or HI: None. Perceptual disturbance: None. Thought Content: blunted talked mainly about his chronic condition Thought Process: blunted Cognition: Intact Judgment and Insight: concrete AIMS: Normal Labs: Available, Reviewed with patient. Diagnosis: Schizophrenia, Undifferentiated Plan and Recommendations: reviewed. Plan Plan and recommendation: Continue current Medications. Monitor MS and side effects of medications and adjust medications accordingly. Provide supportive psychotherapy. The patient provided psychoeducation. The patient provided Substance abuse counseling. Smoke cessation therapy. The patient to continue attending the pop activities. Medication Consent with explanation of risk/benefits and side effects: Explained and obtained. I possibly need a slight decrease in the medications if the above affect is not 5 when necessary Active Medications Generic Name Dose Route Start Last Admin Trade Name Freq PRN Reason Stop Dose Admin Acetaminophen 650 mg 04/02/24 17:49 Acetaminophen Tab 325 Mg Tab PO Q4HR PRN Mild Pain (Scale 1 to 3) Al Hydroxide/Mg Hydroxide 30 ml 04/02/24 17:49 Mag Hydrox/Al Hydrox/Simeth 355 Ml Bottle PO Q4HR PRN GI Upset Clonazepam 0.5 mg 04/08/24 21:00 04/10/24 19:59 Clonazepam 0.5 Mg Tab PO 0.5 mg HS ZAK Administration Diphenhydramine HCl 50 mg 04/09/24 13:38 04/10/24 21:37 Diphenhydramine 50 Mg Cap PO 50 mg HS PRN Administration Insomnia Divalproex Sodium 250 mg 04/06/24 16:00 04/11/24 08:16 Divalproex 250 Mg Tablet.Dr PO 250 mg TID ZAK Administration Haloperidol 2 mg 04/09/24 13:34 04/11/24 04:55 Haloperidol 2 Mg Tab PO 2 mg Q6HR PRN Administration Agitation Haloperidol Lactate 2 mg 04/09/24 13:33 Haloperidol Lactate 5 Mg/Ml 1 Ml Vial IM Q6HR PRN Severe Agitation Ibuprofen 600 mg 04/02/24 17:49 Ibuprofen 600 Mg Tab PO Q6HR PRN Moderate Pain (Scale 4 to 6) Lorazepam 1 mg 04/02/24 17:49 04/11/24 04:55 Lorazepam 1 Mg Tab PO 1 mg Q6HR PRN Administration Anxiety Lorazepam 1 mg 04/02/24 17:49 04/09/24 01:24 Lorazepam 2 Mg/Ml Inj IM 1 mg Q6HR PRN Administration Severe Agitation Magnesium Hydroxide 2,400 mg 04/02/24 17:49 Magnesium Hydroxide 2,400 Mg/30 Ml Cup PO DAILY PRN Constipation Mirtazapine 15 mg 04/09/24 21:00 04/10/24 19:59 Mirtazapine 15 Mg Tab PO 15 mg HS ZAK Administration Nicotine Polacrilex 2 mg 04/02/24 20:49 04/11/24 08:17 Nicotine Gum (Polacrilex) 2 Mg Gum BUCCAL 2 mg Q4HR PRN Administration Nicotine Cravings Paliperidone 6 mg 04/07/24 21:00 04/10/24 19:59 Paliperidone 6 Mg Tab.Er.24 PO 6 mg HS ZAK Administration Paliperidone 3 mg 04/10/24 09:00 04/11/24 08:16 Paliperidone 3 Mg Tab.Er.24 PO 3 mg DAILY ZAK Administration Balwinder Davis MD Objective - Vital Signs Vital signs: Vital Signs Temp 97.4 F L 04/11/24 06:00 Pulse 99 04/11/24 06:00 Resp 17 04/11/24 06:00 BP 132/72 04/11/24 06:00 Pulse Ox 99 04/11/24 06:00 FiO2 Intake & Output 04/11/24 04/12/24 04/12/24 18:59 06:59 18:59 Weight 99.427 kg - Labs CBC & Chem 7: 04/03/24 11:16 04/03/24 11:16
--- NOTE | 2024-04-13 21:35 | P.PN ---
Progress Note - Text Progress Note Date: 04/13/24 In-Patient Follow-up Chief Complaint: I am fine Subjective: The patient noted that he has been doing fine. He has no complaints. The patient tolerating medications well. He reported no side effects. The patient attends group but his interaction is limited. Overall, the patient has been showing improvements. Leading questions: The patient denied Depression and Anxiety. Denied SI or HI. Denied symptoms consistent with psychosis Sleep and Appetite: Sleep is fair. Appetite is good. Interim History: Behavioral Changes: PRN meds/isolation/restraints/ change in status: None. The patient did ask for prn for not able to sleep once over the weekend. Change in medical condition: No change. Change in medications: No change. Side effects from Medications: None. Objective- MSE: Alert and attentive. Orientation times three. Dressed and Groomed: Appropriately. Pleasant and cooperative. Psychomotor Activity: Normal. Speech: Normal in tone, quality, and quantity. Mood: Good. Affect: Constricted. SI or HI: None. Perceptual disturbance: None. Thought Content: No paranoia or other delusional thinking noted. Thought Process: Normal. Cognition: Intact Judgment and Insight: Fair. AIMS: Normal. Labs: No new labs. Diagnosis: No change. Plan and recommendation: Continue current Medications. Monitor MS and side effects of medications and adjust medications accordingly. Provide supportive psychotherapy. The patient provided psychoeducation. The patient provided Substance abuse counseling. Smoke cessation therapy. The patient to continue attending the pop activities. Medication Consent with explanation of risk/benefits and side effects: Explained and obtained.
[2024-04-14 17:06] VITALS: BMI 34.3
--- NOTE | 2024-04-14 22:05 | P.PN ---
Progress Note - Text Progress Note Date: 04/14/24 In-Patient Follow-up Chief Complaint: I am doing fine Subjective: The patient noted that he feels just fine. He thinks that he is going to a rehab, however his application is rejected because he is positive to THC only. His guardian is trying to get him his mothers home. The social work is going to involve the patient with [facility]. Overall, the patient has made good improvement. He has been compliant with treatment. He is attending groups and interacting with staff and peers. His involvement is active than other patients. Leading questions: The patient denied Depression and Anxiety. Denied SI or HI. Denied symptoms consistent with psychosis Sleep and Appetite: Good. Interim History: Behavioral Changes: PRN meds/isolation/restraints/ change in status: None. Change in medical condition: No change. Change in medications: No change. Side effects from Medications: None. Objective- MSE: Alert and attentive. Orientation times three. Dressed and Groomed: Appropriately. Pleasant and cooperative. Psychomotor Activity: Normal. Speech: Normal in tone, quality, and quantity. Mood: Good. Affect: Appropriate to mood. SI or HI: None. Perceptual disturbance: None. Thought Content: No paranoia or other delusional thinking noted. Thought Process: Normal. Cognition: Intact Judgment and Insight: Fair. AIMS: Normal. Labs: No new labs. Diagnosis: No change. Plan and recommendation: Continue current Medications. Monitor MS and side effects of medications and adjust medications accordingly. Provide supportive psychotherapy. The patient provided psychoeducation. The patient provided Substance abuse counseling. Smoke cessation therapy. The patient to continue attending the pop activities. Medication Consent with explanation of risk/benefits and side effects: Explained and obtained
[2024-04-15 07:00] VITALS: BP 122/58; PULSE 71; RESP 16; TEMP 97.9
[2024-04-15] MEDS: PALIPERIDONE IM 156 MG/ML SYG IM STA (11:30)
[2024-04-15] MEDS: PALIPERIDONE IM 234 MG/1.5 ML SYG IM STA (11:57)
[2024-04-15] MEDS ORDERED: PALIPERIDONE 3 MG TAB.ER.24 PO SCH (21:00)
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
== END 2024-04-15 12:28 | disposition home or self-care (01) | DRG 885 ==
LOC: EC 12:44 → 3MHU 17:46
PROVIDERS: ADMIT Psychiatry & Neurology Psychiatry; ATTEND Psychiatry & Neurology Psychiatry
DX: F20.3 Undifferentiated schizophrenia (principal); F12.10 Cannabis abuse, uncomplicated; F17.210 Nicotine dependence, cigarettes, uncomplicated; F31.9 Bipolar disorder, unspecified; Z91.128 Patient's intentional underdosing of medication regimen for other reason; Z11.52 Encounter for screening for COVID-19
CPT/HCPCS: 80053; 80061; 80306; 81001; 82075; 82248; 83036; 84443; 85025; 87635

== ENCOUNTER 2024-06-04 15:01 | Inpatient (IN) | payer MEDICARE, MEDICAID ==
--- NOTE | 2024-06-04 15:30 | ED ---
General Adult HPI - General Chief complaint: Psychiatric Symptoms Stated complaint: mental health Time Seen by Provider: 06/04/24 15:04 Source: patient, EMS, RN notes reviewed, old records reviewed Mode of arrival: EMS Limitations: no limitations - History of Present Illness Initial comments: 29-year-old male brought in by paramedics with need for mental health evaluation. Patient has history of schizophrenia and he has been hearing voices. His family was concerned that he may not be taking his medication. Patient denies suicidal or homicidal ideation. He does complain of left foot pain but does not specifically remember an injury. - Related Data Home Medications Medication Instructions Recorded Confirmed Sublocade 300mg 300 mg SQ 04/02/24 Previous Rx's Medication Instructions Recorded Divalproex [Depakote] 250 mg PO TID 30 Days #90 tab 04/15/24 Mirtazapine [Remeron] 15 mg PO HS 30 Days #30 tab 04/15/24 Paliperidone IM [Invega Sustenna] 156 mg IM ONCE 1 Days #1 ml 04/15/24 Paliperidone [Invega] 3 mg PO HS 10 Days #12 tab 04/15/24 Allergies Allergy/AdvReac Type Severity Reaction Status Date / Time No Known Allergies Allergy Verified 04/02/24 16:16 Review of Systems ROS Statement: Those systems with pertinent positive or pertinent negative responses have been documented in the HPI. ROS Other: All systems not noted in ROS Statement are negative. Past Medical History Past Medical History: No Reported History, Asthma Additional Past Medical History / Comment(s): HPV- resolved History of Any Multi-Drug Resistant Organisms: None Reported Past Surgical History: No Surgical Hx Reported Additional Past Surgical History / Comment(s): wisdom teeth Past Anesthesia/Blood Transfusion Reactions: No Reported Reaction Past Psychological History: Anxiety, Bipolar, Depression, Schizophrenia Smoking Status: Current every day smoker Past Alcohol Use History: Occasional Past Drug Use History: Marijuana - Past Family History Father Additional Family Medical History / Comment(s): Father is alive at age 52 with no major medical problems. Mother Additional Family Medical History / Comment(s): Mother is alive at age 52 with no major medical problems. Brother(s) Additional Family Medical History / Comment(s): Patient has one half-brother and one half-sister with no major medical problems. General Exam Limitations: no limitations General appearance: alert, in no apparent distress Head exam: Present: atraumatic, normocephalic Eye exam: Present: normal appearance, PERRL Respiratory exam: Present: normal lung sounds bilaterally. Absent: respiratory distress, wheezes Cardiovascular Exam: Present: regular rate, normal rhythm GI/Abdominal exam: Present: soft. Absent: distended, tenderness Extremities exam: Present: normal inspection, normal capillary refill. Absent: pedal edema Neurological exam: Present: alert, oriented X3 Psychiatric exam: Present: normal affect, normal mood Skin exam: Present: warm, dry, intact. Absent: cyanosis, diaphoretic Course Vital Signs 06/04/24 15:31 Temperature 98.7 F Pulse Rate 104 H Respiratory 18 Rate Blood Pressure 165/100 O2 Sat by Pulse 97 Oximetry Medical Decision Making - Medical Decision Making Was pt. sent in by a medical professional or institution (, PA, COTTON GINNER HELPER, urgent care, hospital, or snf...) When possible be specific @ -No Did you speak to anyone other than the patient for history (EMS, parent, family, police, friend...)? What history was obtained from this source @ -No Did you review nursing and triage notes (agree or disagree)? Why? @ -I reviewed and agree with nursing and triage notes Were old charts reviewed (outside hosp., previous admission, EMS record, old EKG, old radiological studies, urgent care reports/EKG's, snf records)? Report findings @ -No old charts were reviewed Differential Mental Health Depression, anxiety, bipolar, psychosis, schizophrenia, borderline personality, situational depression, adjustment disorder, behavioral disorder, brain tumor, malingering, substance abuse, encephalopathy, medication reaction, dementia, hypothyroidism, degenerative neurologic disorder, lupus.... This is not meant to be all-inclusive list EKG interpreted by me (3pts min.). @ -As above X-rays interpreted by me (1pt min.). @ -None done CT interpreted by me (1pt min.). @ -None done U/S interpreted by me (1pt. min.). @ -None done What testing was considered but not performed or refused? (CT, X-rays, U/S, labs)? Why? @ -None What meds were considered but not given or refused? Why? @ -None Did you discuss the management of the patient with other professionals (professionals i.e. , PA, COTTON GINNER HELPER, lab, RT, psych nurse, social science analyst, lifestyle block farmer, teacher, audit officer, manager of case)? Give summary @ -No Was smoking cessation discussed for >3mins.? @ -No Was critical care preformed (if so, how long)? @ -No Were there social determinants of health that impacted care today? How? (Homelessness, low income, unemployed, alcoholism, drug addiction, transpor tation, low edu. Level, literacy, decrease access to med. care, skilled nursing, rehab)? @ -No Was there de-escalation of care discussed even if they declined (Discuss DNR or withdrawal of care, Hospice)? DNR status @ -No What co-morbidities impacted this encounter? (DM, HTN, Smoking, COPD, CAD, Cancer, CVA, ARF, Chemo, Hep., AIDS, mental health diagnosis, sleep apnea, morbid obesity)? @ -Schizophrenia Was patient admitted / discharged? Hospital course, mention meds given and route, prescriptions, significant lab abnormalities, going to OR and other pertinent info. @ -[Patient had been medically cleared and was evaluated by EPS and felt to require inpatient psychiatric care. I did complete a clinical certification on this patient. He will be admitted for further psychiatric care. Undiagnosed new problem with uncertain prognosis? @ -No Drug Therapy requiring intensive monitoring for toxicity (Heparin, Nitro, Insulin, Cardizem)? @ -No Were any procedures done? @ -No Diagnosis/symptom? @Acute psychosis Acute, or Chronic, or Acute on Chronic? @ -Acute Uncomplicated (without systemic symptoms) or Complicated (systemic symptoms)? @ -Default Side effects of treatment? @ -No Exacerbation, Progression, or Severe Exacerbation? @ -No Poses a threat to life or bodily function? How? (Chest pain, USA, CO, pneumonia, PE, COPD, DKA, ARF, appy, cholecystitis, CVA, Diverticulitis, Homicidal, S uicidal, threat to staff... and all critical care pts) @ yes, noncompliant with medication, acute psychosis, self-harm Disposition Clinical Impression: Acute psychosis Disposition: ADMITTED IP TO THIS [facility] Condition: Stable Is patient prescribed a controlled substance at d/c from ED?: No Referrals: Nonstaff,Physician [Primary Care Provider] - 1-2 days Time of Disposition: 16:20
--- NOTE | 2024-06-04 15:54 | XR ---
EXAMINATION TYPE: XR foot complete 3 views LT DATE OF EXAM: 06/04/2024 Comparison: None Clinical History: 29-year-old male pain Findings: No acute fracture, subluxation, dislocation is seen. Tiny plantar heel spur. Joint spaces are maintai holly. Impression: No acute osseous abnormality seen.
[2024-06-04] MEDS ORDERED: IBUPROFEN 600 MG TAB PO PRN (17:36)
[2024-06-04] MEDS ORDERED: MAGNESIUM HYDROXIDE 2,400 MG/30 ML CUP PO PRN (17:36)
[2024-06-04] MEDS ORDERED: MAG HYDROX/AL HYDROX/SIMETH 355 ML BOTTLE PO PRN (17:36)
[2024-06-04] MEDS ORDERED: HALOPERIDOL LACTATE 5 MG/ML 1 ML VIAL IM PRN (17:37)
[2024-06-04] MEDS ORDERED: LORazepam 2 MG/ML INJ IM PRN (17:37)
[2024-06-04 18:13] LABS: Amphetamine Screen,Urine Not Detected (NotDetected); Barbiturate Screen,Urine Not Detected (NotDetected); Benzodiazepines Screen,Urine Not Detected (NotDetected); Cocaine Screen,Urine Not Detected (NotDetected); Methadone Screen, Urine Not Detected (NotDetected); Opiate Screen,Urine Not Detected (NotDetected); Oxycodone Screen, Urine Not Detected (NotDetected); Phencyclidine Screen,Urine Not Detected (NotDetected); Tricyclic Antidepressant,Urine Not Detected (NotDetected); Urn Cannabinoid Scrn Detected (NotDetected)
[2024-06-04] MEDS: haloperidoL 5 MG TAB PO PRN (18:19)
[2024-06-04] MEDS: LORazepam 1 MG TAB PO PRN (18:19)
--- NOTE | 2024-06-04 23:04 | P.PN ---
Progress Note - Text Progress Note Date: 06/04/24 patient medicated and sleeping , unable to evaluate at this time
[2024-06-05] MEDS: DIVALPROEX 250 MG TABLET.DR PO SCH (03:53)
[2024-06-05] MEDS: MIRTAZAPINE 15 MG TAB PO SCH (03:53)
--- NOTE | 2024-06-05 09:59 | P.HP ---
Psychiatric H&P - . H&P Date: 06/05/24 History & Physical: Allergies Allergy/AdvReac Type Severity Reaction Status Date / Time No Known Allergies Allergy Verified 06/04/24 16:36 Vital Signs Temp 97.7 F 06/04/24 17:46 Pulse 78 06/04/24 17:46 Resp 18 06/04/24 17:46 BP 144/68 06/04/24 17:46 Pulse Ox 96 06/04/24 17:46 FiO2 Intake & Output 06/04/24 06/05/24 06/05/24 18:59 06:59 18:59 Weight 103.419 kg Laboratory Last Values Urine Opiates Screen Not Detected (NotDetected) 06/04/24 15:28 Ur Oxycodone Screen Not Detected (NotDetected) 06/04/24 15:28 Urine Methadone Screen Not Detected (NotDetected) 06/04/24 15:28 Ur Barbiturates Screen Not Detected (NotDetected) 06/04/24 15:28 U Tricyclic Antidepress Not Detected (NotDetected) 06/04/24 15:28 Ur Phencyclidine Scrn Not Detected (NotDetected) 06/04/24 15:28 Ur Amphetamines Screen Not Detected (NotDetected) 06/04/24 15:28 U Methamphetamines Scrn Not Detected (NotDetected) 06/04/24 15:28 U Benzodiazepines Scrn Not Detected (NotDetected) 06/04/24 15:28 Urine Cocaine Screen Not Detected (NotDetected) 06/04/24 15:28 U Marijuana (THC) Screen Detected (NotDetected) H 06/04/24 15:28 SARS-CoV-2 (PCR) Not Detected (Not Detectd) 06/04/24 16:16 06/05/24 09:57 Psychiatric Evaluation Identifying Data: Mr. Grajeda is a 29 years old, single WM, who lives in [place], [place] with his mother in a house. Chief Complaint: I am taking Invega, it is not working. History of Psychiatric Illness- He patient noted that he was brought to the hospital for getting his medications reinstated and reevaluated. As per ER note, the patient was getting worse and c/o of hearing voices. The patient noted that he does not want to take Invega. He stated that he has low libido on Invega. The patient did not take LA Invega after leaving the hospital. He wants to switch to Prolamin. The patient was mumbling to himself and appeared preoccupied. The patient was gently explained that Invega may not be causing any side effects because he did not take after leaving the hospital following. He was shown the date he was given his last dose. The patient became uneasy and looked at me suspiciously and mumbled and asked, if he can see a different doctor. He was reassured and redirected. The patient got up and left the office stating that he will see a different doctor. He was noticed to be mumbling to self Drugs and alcohol history: The patient noted that he has used Heroin, Meth and weed. He has been off heroin and Meth for 7 months. He continues to smoke THC. He denied use of alcohol. Tobacco use: Vapes and smokes cigarettes. He smokes half pack in a week and vapes every week. Past Medical history: Asthma. Family History of Psychiatric Disorder: The patient denied. Social History and Family History: The patient was born and raised in [place], [place]. He grew-up with one sibling. He finished [employer]. His longest job was for 7 months working for [employer]. The patient noted that has state appointed guardian. OTC: None. Allergies: None Objective: MSE: Alert and attentive. Orientation times three Dressed and Groomed: Appropriately. Pleasant and cooperative. Psychomotor Activity: Normal. Speech: Normal in tone, quality, and quantity. Mood: Anxious. Affect: Suspicious, tense, worried and perplexed. SI or HI: None. Perceptual disturbance: The patient was demonstrating hallucinatory behavior. Thought Content: Exhibited persecutory belief. Thinks that mother is Thought Process: Normal. Cognition: Intact Judgment and Insight: Poor AIMS: Normal Labs: Reviewed. Diagnosis: Schizophrenia, Undifferentiated Plan and Recommendations: Continue current Medications. Monitor MS and side effects of medications and adjust medications accordingly. Provide supportive psychotherapy and psychoeducation. The patient provided Substance abuse counseling. Smoke cessation therapy. The patient to attend pop Milieu. Medication Consent with explanation of risk/benefits and side effects: Consent obtained
[2024-06-05] MEDS: NICOTINE 14MG/24HR PATCH TRANSDERM SCH (10:12)
[2024-06-05] MEDS ORDERED: hydrOXYzine HCL 25 MG TAB PO PRN (12:50)
[2024-06-05] MEDS: NICOTINE GUM (POLACRILEX) 2 MG GUM BUCCAL PRN (13:50)
--- NOTE | 2024-06-05 21:02 | P.MDCNMH ---
<Dell Card - Last Filed: 06/05/24 22:04> History of Present Illness H&P Date: 06/05/24 Chief Complaint: Medical Evaluation Patient is a 29-year-old male with a history of psychiatric disorder is seen today for medical evaluation. Patient reports that he has pain in both feet since 6 months. Patient reports that it is due to plantar fasciitis. Patient reports the pain is in midfoot to the heel on both sides, worse with walking and better with rest. Patient has been trying pain medication such as Tylenol as needed for pain but it is ineffective. He denies any numbness or weakness in lower extremities. He denies any recent or past trauma to the feet. Patient otherwise denies any headaches, blurry vision, fever, chills, nausea, vomiting, shortness of breath, chest pain, abdominal pain, diarrhea, constipation, and urinary problems. Patient denies history of seizure. Patient had left foot x-ray done on 06/04/2024 in ER which shows tiny plantar heel spur. Otherwise, unremarkable for no acute fracture, subluxation, dislocation. Vitals: Tmax 98.8 F, heart rate 104, respiration rate 18, blood pressure 137/94, oxygen saturation 96% on room air Review of systems: Pertinent positives and negatives as discussed in HPI, a complete review of systems was performed and all other systems are negative. Social history: Tobacco: Uses with weights and smokes cigarettes. Smokes half pack in a week and weights every week. Alcohol: No alcohol Recreational drugs: Used heroin, meth and weed. He has been off heroin and meth for several months. Continues to smoke THC, Travel: None Occupation: None Family History: Noncontributory Physical examination: Vital signs reviewed General: non toxic, no distress, appears at stated age, normal weight Derm: no unusual rashes/lesions, warm Head: atraumatic, normocephalic, symmetric Eyes: EOMI, no lid lag, anicteric sclera, pupils equal round reactive to light ENT: Nose and ears atraumatic Neck: No cervical lymphadenopathy, trachea midline, supple Mouth: no lip lesion, mucus membranes moist Cardiovascular: S1S2 reg, no murmur, positive dorsalis pedis pulse bilateral, no edema Lungs: CTA bilateral, no rhonchi, no rales, no accessory muscle use Abdominal: soft, nontender to palpation, no guarding Ext: No pain upon palpation of plantar surface of the forefoot, midfoot, heel. Active and passive range of motion of both feet are intact with no pain. Muscle strength 5 out of 5 in all 4 extremities grossly, no gross muscle atrophy, no contractures, Neuro: CN II-XI grossly intact, no gross focal neuro deficits Psych: Alert, oriented, appropriate affect Assessment/Plan: 29-year-old male with a history of psychiatric disorder is seen today for medical evaluation. Patient reported that he has pain in both feet since 6 mo nths. -Bilateral foot pain, likely sprain Continue with Tylenol 650 mg every 4 hours as needed -Poorly controlled hypertension, likely due to substance withdrawal Blood pressure readings within last 24 hours are 165/100, 145/88, 135/94 with mean blood pressure of 121, 107, 107, respectively. Continue monitoring blood pressure Start captopril 25 p.o. twice daily if systolic blood pressure more than equal to 180 mmHg and/or diastolic blood pressure more than equal to 120 mmHg -Psychiatric disorder Continue management as per psychiatrist Past Medical History Past Medical History: No Reported History, Asthma Additional Past Medical History / Comment(s): HPV- resolved History of Any Multi-Drug Resistant Organisms: None Reported Past Surgical History: No Surgical Hx Reported Additional Past Surgical History / Comment(s): wisdom teeth Past Anesthesia/Blood Transfusion Reactions: No Reported Reaction Past Psychological History: Anxiety, Bipolar, Depression, Schizophrenia Smoking Status: Current every day smoker Past Alcohol Use History: Occasional Past Drug Use History: Marijuana - Past Family History Father Additional Family Medical History / Comment(s): Father is alive at age 52 with no major medical problems. Mother Additional Family Medical History / Comment(s): Mother is alive at age 52 with no major medical problems. Brother(s) Additional Family Medical History / Comment(s): Patient has one half-brother and one half-sister with no major medical problems. Medications and Allergies Home Medications Medication Instructions Recorded Confirmed Type Divalproex [Depakote] 250 mg PO TID 30 Days #90 tab 04/15/24 06/04/24 Rx Mirtazapine [Remeron] 15 mg PO HS 30 Days #30 tab 04/15/24 06/04/24 Rx Meloxicam [Mobic] 15 mg PO DAILY 06/04/24 06/04/24 History Paliperidone IM [Invega Sustenna] 156 mg IM Q28D 06/04/24 06/04/24 History Sublocade 100mg/0.5ml 100 mg SQ Q28D 06/04/24 06/04/24 History Allergies Allergy/AdvReac Type Severity Reaction Status Date / Time No Known Allergies Allergy Verified 06/04/24 16:36 <Sary Healy - Last Filed: 06/13/24 20:39> History of Present Illness I have seen and evaluated the patient today. I Discussed the case with the resident and agree with the resident's findings as documented in the resident's note. 29 year old male with schizophrenia , not compliant with medications , medicine consulted for medical management bilateral plantar fasciatis pain control with Ibuprofen 600 QID for 5 day s protonix 40 mg po daily acute psychosis management per psych high blood pressure readings no diagnosis of hypertension in the past this could be secondary to acute psychosis if continues to have persistent high blood pressure readings >140/90 then start on lisinopril 5 mg po daily amlodipine 5 mg po daily and consider workup for secondary causes of hypertension , including but not limited to , doppler renal artery (rule out renal artery stenosis ), urine metanephrines (rule out pheochromocytoma), moderate to high risk of ELAINA consider home sleep study as OP monitor blood pressure closely follow up renal function follow up renal function , and TSH obesity counseled regarding weight loss and lifestyle modification stable from medical standpoint no labs available for review at this time Cranial Nerve Examination - Cranial Nerves Cranial Nerve II- Optic: Intact Cranial Nerve III- Oculomotor: Intact Cranial Nerve IV- Trochlear: Intact Cranial Nerve V- Trigeminal: Intact Cranial Nerve - Abducens: Intact Cranial Nerve VII- Facial: Intact Cranial Nerve VIII- Auditory: Intact Cranial Nerve IX- Glossopharyngeal: Intact Cranial Nerve X- Vagus: Intact Cranial Nerve XI- Accessory: Intact Cranial Nerve XII- Hypoglossal: Intact Results CBC & Chem 7: 06/11/24 11:28 06/07/24 06:16
[2024-06-06] MEDS: IBUPROFEN 600 MG TAB PO SCH (01:19)
[2024-06-06] MEDS: LORazepam 1 MG TAB PO PRN (01:52)
[2024-06-06 05:46] LABS: Appearance,Urine Clear (Clear); Bilirubin,Urine Negative (Negative); Blood,Urine Negative (Negative); Color,Urine Yellow; Glucose,Urine (UA) Negative (Negative); Ketones,Urine 1+ (Negative); Leukocyte Esterase,Urine Negative (Negative); Nitrite,Urine Negative (Negative); PH, Urine 6.5 (5.0-8.0); Protein,Urine Trace (Negative); Specific Gravity,Urine 1.035 (1.001-1.035); Urobilinogen,Urine <2.0 mg/dL (<2.0)
[2024-06-06] MEDS ORDERED: lisinopriL 5 MG TAB PO SCH (09:00)
[2024-06-06] MEDS ORDERED: amLODIPine 5 MG TAB PO SCH (09:00)
[2024-06-06] MEDS: PANTOPRAZOLE 40 MG TABLET PO SCH (09:17)
--- NOTE | 2024-06-06 12:57 | P.PN ---
Subjective Progress Note Date: 06/06/24 Patient Name: Cesar Venegas Date of : [birth year] Patient Status: Inpatient Attending Provider: Anselmo Minaya Date: 06/06/24 Initialization Date: 06/05/24 09:57 Subjective data: Patient states that this is his ninth admission He states that he has been in the hospital multiple times He states his been hearing voices and that this seemed to be getting worse He denies any command hallucinations He patient noted that he was brought to the hospital for getting his medications reinstated and reevaluated. As per ER note, the patient was getting worse and c/o of hearing voices. The patient noted that he does not want to take Invega. He stated that he has low libido on Invega. The patient did not take LA Invega after leaving the hospital. He wants to switch to Prolaxin noted that has state appointed guardian. Drugs and alcohol history: The patient noted that he has used Heroin, Meth and weed. He has been off heroin and Meth for 7 months. He continues to smoke THC. He denied use of alcohol. Tobacco use: Vapes and smokes cigarettes. He smokes half pack in a week and vapes every week. MSE: Alert and attentive. Orientation times three Dressed and Groomed: Dirty looking disheveled appearance Pleasant and cooperative. Psychomotor Activity: Normal. Speech: Normal in tone, quality, and quantity. Mood: Anxious. Affect: Suspicious, tense, worried and perplexed. SI or HI: None. Perceptual disturbance: The patient was demonstrating hallucinatory behavior. Thought Content: Exhibited persecutory belief. Thinks that mother is Thought Process: Normal. Cognition: Intact Judgment and Insight: Poor AIMS: Normal Labs: Reviewed. Diagnosis: Schizophrenia, Undifferentiated Plan and Recommendations: Agree with the current treatment plan Continue current Medications. Monitor MS and side effects of medications and adjust medications accordingly. Provide supportive psychotherapy and psychoeducation. The patient provided Substance abuse counseling. Smoke cessation therapy. The patient to attend pop Milieu. Medication Consent with explanation of risk/benefits and side effects: Active Medications Generic Name Dose Route Start Last Admin Trade Name Freq PRN Reason Stop Dose Admin Acetaminophen 650 mg 06/04/24 17:36 Acetaminophen Tab 325 Mg Tab PO Q4HR PRN Mild Pain (Scale 1 to 3) Al Hydroxide/Mg Hydroxide 30 ml 06/04/24 17:36 Mag Hydrox/Al Hydrox/Simeth 355 Ml Bottle PO Q4HR PRN GI Upset Divalproex Sodium 250 mg 06/04/24 22:00 06/06/24 09:17 Divalproex 250 Mg Tablet.Dr PO 250 mg TID ZAK Administration Fluphenazine HCl 5 mg 06/05/24 21:00 06/05/24 21:11 Fluphenazine 5 Mg Tab PO 5 mg HS ZAK Administration Haloperidol 5 mg 06/04/24 17:37 06/06/24 01:52 Haloperidol 5 Mg Tab PO 5 mg QID PRN Administration Agitation or Acute Psychosis Haloperidol Lactate 5 mg 06/04/24 17:37 Haloperidol Lactate 5 Mg/Ml 1 Ml Vial IM QID PRN Agitation or Acute Psychosis Hydroxyzine HCl 25 mg 06/05/24 12:50 Hydroxyzine Hcl 25 Mg Tab PO QID PRN Severe Anxiety Ibuprofen 600 mg 06/06/24 00:00 06/06/24 05:59 Ibuprofen 600 Mg Tab PO 06/09/24 00:00 600 mg Q6HR ZAK Administration Lorazepam 2 mg 06/04/24 17:37 Lorazepam 2 Mg/Ml Inj IM QID PRN Agitation or Acute Anxiety Lorazepam 1 mg 06/05/24 12:49 06/06/24 01:52 Lorazepam 1 Mg Tab PO 1 mg QID PRN Administration Agitation or Acute Anxiety Magnesium Hydroxide 2,400 mg 06/04/24 17:36 Magnesium Hydroxide 2,400 Mg/30 Ml Cup PO DAILY PRN Constipation Mirtazapine 15 mg 06/04/24 21:00 06/05/24 21:11 Mirtazapine 15 Mg Tab PO 15 mg HS ZAK Administration Nicotine 1 patch 06/05/24 09:00 06/06/24 09:17 Nicotine 14mg/24hr Patch TRANSDERM 1 patch DAILY ZAK Administration Nicotine Polacrilex 2 mg 06/05/24 13:48 06/05/24 13:50 Nicotine Gum (Polacrilex) 2 Mg Gum BUCCAL 2 mg Q4HR PRN Administration Nicotine Cravings Pantoprazole Sodium 40 mg 06/06/24 07:30 06/06/24 09:17 Pantoprazole 40 Mg Tablet PO 40 mg [id number] ZAK Administration Balwinder Davis MD Objective - Vital Signs Vital signs: Vital Signs Temp 97.7 F 06/04/24 17:46 Pulse 78 06/04/24 17:46 Resp 18 06/04/24 17:46 BP 144/68 06/04/24 17:46 Pulse Ox 96 06/04/24 17:46 FiO2 - Labs Labs: Abnormal Lab Results - Last 24 Hours (Table) 06/04/24 Range/Units 15:28 Urine Protein Trace H (Negative) Urine Ketones 1+ H (Negative)
[2024-06-07 06:39] LABS: Basophils % (A) 1 %; Eosinophils # (A) 0.2 k/uL (0-0.7); Eosinophils % (A) 4 %; HCT 41.3 % (39.0-53.0); HGB 13.8 gm/dL (13.0-17.5); Lymphocytes % (A) 44 %; MCH 32.4 pg (25.0-35.0); MCHC 33.4 g/dL (31.0-37.0); MCV 97.3 fL (80.0-100.0); Mean Platelet Volume 7.5; Monocytes # (A) 0.3 k/uL (0-1.0); Monocytes % (A) 6 %; Neutrophils # (A) 1.9 k/uL (1.3-7.7); Neutrophils % (A) 42 %; Platelet Count 261 k/uL (150-450); RBC 4.25 m/uL (4.30-5.90); RDW 12.4 % (11.5-15.5); WBC 4.6 k/uL (3.8-10.6)
[2024-06-07 07:04] LABS: ALT 29 U/L (4-49); AST 27 U/L (17-59); African American GFR (CKD) >90 (>60 ml/min/1.73 sqM); Albumin 3.6 g/dL (3.5-5.0); Alkaline Phosphatase 54 U/L (38-126); Anion Gap 5 mmol/L; Blood Urea Nitrogen 16 mg/dL (9-20); Calcium 8.9 mg/dL (8.4-10.2); Carbon Dioxide 26 mmol/L (22-30); Chloride 107 mmol/L (98-107); Glucose 94 mg/dL (74-99); Non-African American GFR(CKD) >90 (>60 ml/min/1.73 sqM); Potassium 4.2 mmol/L (3.5-5.1); Sodium 138 mmol/L (137-145); Total Bilirubin 0.7 mg/dL (0.2-1.3); Total Protein 5.8 g/dL (6.3-8.2)
[2024-06-07 07:09] LABS: Valproic Acid (Depakene) 36.5 ug/mL
--- NOTE | 2024-06-07 09:26 | P.PN ---
Subjective Progress Note Date: 06/07/24 Patient Name: Cesar Venegas Date of : 89 Patient Status: Inpatient Attending Provider: Anselmo Minaya Date: 06/07/24 Initialization Date: 06/05/24 09:57 Subjective data: The patient was seen and chart was reviewed and case discussed with nursing staff He patient noted that he was brought to the hospital for getting his medications reinstated and reevaluated. As per ER note, the patient reports that his voices where getting worse and c/o of hearing voices. The patient noted that he does not want to take Invega. He stated that he has low libido on Invega. The patient did not take LA Invega after leaving the hospital. He wants to switch to Prolaxin noted that has state appointed guardian. Drugs and alcohol history: The patient noted that he has used Heroin, Meth and weed. He has been off heroin and Meth for 7 months. He continues to smoke THC. He denied use of alcohol. Tobacco use: Vapes and smokes cigarettes. He smokes half pack in a week and vapes every week. MSE: Alert and attentive. Orientation times three Dressed and Groomed: Dirty looking disheveled appearance Pleasant and cooperative. Psychomotor Activity: Normal. Speech: Normal in tone, quality, and quantity. Mood: Anxious. Affect: Suspicious, tense, worried and perplexed. SI or HI: None. Perceptual disturbance: The patient was demonstrating hallucinatory behavior. Thought Content: Exhibited persecutory belief. Thinks that mother is Thought Process: Normal. Cognition: Intact Judgment and Insight: Poor AIMS: Normal Labs: Reviewed. Diagnosis: Schizophrenia, Undifferentiated Plan and Recommendations: Agree with the current treatment plan Continue current Medications. Monitor MS and side effects of medications and adjust medications accordingly. Provide supportive psychotherapy and psychoeducation. The patient provided Substance abuse counseling. Smoke cessation therapy. The patient to attend pop Milieu. Medication Consent with explanation of risk/benefits and side effects: Active Medications Generic Name Dose Route Start Last Admin Trade Name Freq PRN Reason Stop Dose Admin Acetaminophen 650 mg 06/04/24 17:36 Acetaminophen Tab 325 Mg Tab PO Q4HR PRN Mild Pain (Scale 1 to 3) Al Hydroxide/Mg Hydroxide 30 ml 06/04/24 17:36 Mag Hydrox/Al Hydrox/Simeth 355 Ml Bottle PO Q4HR PRN GI Upset Divalproex Sodium 250 mg 06/04/24 22:00 06/06/24 09:17 Divalproex 250 Mg Tablet.Dr PO 250 mg TID ZAK Administration Fluphenazine HCl 5 mg 06/05/24 21:00 06/05/24 21:11 Fluphenazine 5 Mg Tab PO 5 mg HS ZAK Administration Haloperidol 5 mg 06/04/24 17:37 06/06/24 01:52 Haloperidol 5 Mg Tab PO 5 mg QID PRN Administration Agitation or Acute Psychosis Haloperidol Lactate 5 mg 06/04/24 17:37 Haloperidol Lactate 5 Mg/Ml 1 Ml Vial IM QID PRN Agitation or Acute Psychosis Hydroxyzine HCl 25 mg 06/05/24 12:50 Hydroxyzine Hcl 25 Mg Tab PO QID PRN Severe Anxiety Ibuprofen 600 mg 06/06/24 00:00 06/06/24 05:59 Ibuprofen 600 Mg Tab PO 06/09/24 00:00 600 mg Q6HR ZAK Administration Lorazepam 2 mg 06/04/24 17:37 Lorazepam 2 Mg/Ml Inj IM QID PRN Agitation or Acute Anxiety Lorazepam 1 mg 06/05/24 12:49 06/06/24 01:52 Lorazepam 1 Mg Tab PO 1 mg QID PRN Administration Agitation or Acute Anxiety Magnesium Hydroxide 2,400 mg 06/04/24 17:36 Magnesium Hydroxide 2,400 Mg/30 Ml Cup PO DAILY PRN Constipation Mirtazapine 15 mg 06/04/24 21:00 06/05/24 21:11 Mirtazapine 15 Mg Tab PO 15 mg HS ZAK Administration Nicotine 1 patch 06/05/24 09:00 06/06/24 09:17 Nicotine 14mg/24hr Patch TRANSDERM 1 patch DAILY ZAK Administration Nicotine Polacrilex 2 mg 06/05/24 13:48 06/05/24 13:50 Nicotine Gum (Polacrilex) 2 Mg Gum BUCCAL 2 mg Q4HR PRN Administration Nicotine Cravings Pantoprazole Sodium 40 mg 06/06/24 07:30 06/06/24 09:17 Pantoprazole 40 Mg Tablet PO 40 mg [id number] ZAK Administration Balwinder Davis MD Objective - Vital Signs Vital signs: Vital Signs Temp 97.7 F 06/07/24 06:56 Pulse 71 06/07/24 06:56 Resp 16 06/07/24 06:56 BP 119/74 06/07/24 06:56 Pulse Ox 100 06/07/24 06:56 FiO2 - Labs CBC & Chem 7: 06/07/24 06:16 06/07/24 06:16 Labs: Abnormal Lab Results - Last 24 Hours (Table) 06/07/24 06/07/24 Range/Units 06:16 06:16 RBC 4.25 L (4.30-5.90) m/uL Total Protein 5.8 L (6.3-8.2) g/dL
--- NOTE | 2024-06-08 13:37 | P.PN ---
Progress Note - Text Progress Note Date: 06/08/24 In-Patient Follow-up Chief Complaint: I am doing better Subjective: The patient noted that he feels better. His voices are not bothering him as much. He feels that are toned down. He is not hearing mean voices. He feels rested. The patient noted that medications are helping him. The patients appetite and sleep has improved. He reported no side effects. He has been compliant with medications. Leading questions: The patient denied Depression and Anxiety. Denied SI or HI. He is still hearing voices but the voices have subdued and are tolerable. Sleep and Appetite: Improving. PRN meds/isolation/restraints/ change in status: None. Change in medical condition: No change. Change in medications: Prolamin increased to 10 mg po hs. Side effects from Medications: None. Objective- MSE: Alert and attentive. Orientation times three. Dressed and Groomed: Appropriately. Pleasant and cooperative. Psychomotor Activity: Normal. Speech: Normal in tone, quality, and quantity. Mood: Improved. Affect: Appropriate to mood. SI or HI: None. Perceptual disturbance: Hears multiple voices. Thought Content: No paranoia or other delusional thinking noted. Thought Process: Normal. Cognition: Intact Judgment and Insight: Fair. AIMS: Normal. Labs: No new labs. Diagnosis: No change. Plan and recommendation: Continue current Medications. Monitor MS and side effects of medications and adjust medications accordingly. Provide supportive psychotherapy. The patient provided psychoeducation. The patient provided Substance abuse counseling. Smoke cessation therapy. The patient to continue attending the pop activities. Medication Consent with explanation of risk/benefits and side effects: Explained and obtained
--- NOTE | 2024-06-09 12:46 | P.PN ---
Progress Note - Text Progress Note Date: 06/09/24 In-Patient Follow-up Chief Complaint: I dont want to take antipsychotics Subjective: The patient noted that he does not want to take any antipsychotic because they take away his libido. He noted that that Prolixin is helping him but he wants to be able to have libido. He noted that voices are better with Prolixin. He stated that he was being controlled by the voices. The voices wanted to take him in to a time machine, give him out of body experience so they can take control of his body and control of other people. . He stated that they do this by being anything. He believes the voices can change in to anything. . The voices tell him to kill himself. The patient noted that he does follow the voices commands. The patient was gently redirected and reassured. He settled down and agreed to continue taking medications. He reported no other side effects. He has been compliant with medications. Leading questions: The patient denied Depression and Anxiety. Denied SI or HI. He is still hearing voices but the voices have subdued and are tolerable. Sleep and Appetite: Improving. PRN meds/isolation/restraints/ change in status: None. Change in medical condition: No change. Change in medications: None. Side effects from Medications: None. Objective- MSE: Alert and attentive. Orientation times three. Dressed and Groomed: Appropriately. Pleasant and cooperative. Psychomotor Activity: Normal. Speech: Normal in tone, quality, and quantity. Mood: Improved. Affect: Appropriate to mood. SI or HI: None. Perceptual disturbance: Hears multiple voices. Thought Content: No paranoia or other delusional thinking noted. Thought Process: Normal. Cognition: Intact Judgment and Insight: Fair. AIMS: Normal. Labs: No new labs. Diagnosis: No change. Plan and recommendation: Continue current Medications. Monitor MS and side effects of medications and adjust medications accordingly. Provide supportive psychotherapy. The patient provided psychoeducation. The patient provided Substance abuse counseling. Smoke cessation therapy. The patient to continue attending the pop activities. Medication Consent with explanation of risk/benefits and side effects: Explained and obtained.
--- NOTE | 2024-06-10 12:17 | P.PN ---
Progress Note - Text Progress Note Date: 06/10/24 In-Patient Follow-up Chief Complaint: I think medication is helping me Subjective: The patient noted that the medication is helping him and ants to take medications. He also agreed to take LA Prolixin D once his oral dosage is adjusted to maximize the benefit with no side effects. He understands that not taking medications can lead to worsening of symptoms and relapse in the state he came to the hospital with tormenting voices. The patient was taking loud to himself in different voices in his room last night, as per nursing report. He reported no other side effects today. He has been compliant with medications. The patient has been attending groups irregularly. His participation is meager. His interaction with staff and peers is limited. Leading questions: The patient denied Depression and Anxiety. Denied SI or HI. He is still hearing voices but the voices have subdued and are tolerable. Sleep and Appetite: Improving. PRN meds/isolation/restraints/ change in status: None. Change in medical condition: No change. Change in medications: None. Side effects from Medications: None. Objective- MSE: Alert and attentive. Orientation times three. Dressed and Groomed: Appropriately. Pleasant and cooperative. Psychomotor Activity: Normal. Speech: Normal in tone, quality, and quantity. Mood: Improved. Affect: Appropriate to mood. SI or HI: None. Perceptual disturbance: Hears multiple voices. Talks in different voices by himself. Thought Content: No paranoia or other delusional thinking noted. Thought Process: Normal. Cognition: Intact Judgment and Insight: Fair. AIMS: Normal. Labs: No new labs. Diagnosis: No change. Plan and recommendation: Continue current Medications. Monitor MS and side effects of medications and adjust medications accordingly. Provide supportive psychotherapy. The patient provided psychoeducation. The patient provided Substance abuse counseling. Smoke cessation therapy. The patient to continue attending the pop activities. Medication Consent with explanation of risk/benefits and side effects: Explained and obtained.
[2024-06-11] MEDS: ACETAMINOPHEN TAB 325 MG TAB PO PRN (10:58)
[2024-06-11] MEDS: IBUPROFEN 800 MG TAB PO STA (11:26)
[2024-06-11 12:09] LABS: Basophils % (A) 0 %; Eosinophils % (A) 0 %; HCT 45.1 % (39.0-53.0); HGB 14.8 gm/dL (13.0-17.5); Lymphocytes # (A) 0.9 k/uL (1.0-4.8); Lymphocytes % (A) 9 %; MCH 32.1 pg (25.0-35.0); MCHC 32.9 g/dL (31.0-37.0); MCV 97.5 fL (80.0-100.0); Mean Platelet Volume 7.4; Monocytes # (A) 0.5 k/uL (0-1.0); Monocytes % (A) 5 %; Neutrophils # (A) 8.5 k/uL (1.3-7.7); Neutrophils % (A) 85 %; Platelet Count 203 k/uL (150-450); RBC 4.63 m/uL (4.30-5.90); RDW 12.5 % (11.5-15.5); WBC 9.9 k/uL (3.8-10.6)
--- NOTE | 2024-06-11 15:14 | P.PN ---
Subjective Progress Note Date: 06/11/24 Hospital course: Patient is a 29-year-old male with a past medical history of psychiatric disorders including depression, anxiety, bipolar disorder, and schizophrenia along with nicotine dependence and cannabinoid use disorder. He is currently admitted to mental health unit under psychiatry team for psychosis secondary to schizophrenia. I was called to evaluate patient secondary to episode of pyrexia and sinus tachycardia. Patient presented to nursing station with reports of sore throat and upon evaluation vital signs were obtained showing temp 102.7, he art rate 130, respiratory rate 20, blood pressure 112/67, and SpO2 of 99%. Patient was evaluated on mental health unit. He was ambulatory on unit and currently reports only mild sore throat and postnasal drainage. Patient reports the symptoms began last night. Patient denies having any headache, lightheadedness, dizziness, chest pain, palpitations, shortness of breath, cough, abdominal pain, nausea, vomiting, or any other complaints. He denies having any dysphagia and reports no difficulties clearing his secretions. Patient was given Tylenol 625 mg p.o. x 1 dose and Motrin 800 mg p.o. x 1 dose resulting in successful breakage of fever with repeat temp after 1 hour 98.5 F and heart rate of 87. Physical exam: Vital signs reviewed and stable. General: Nontoxic, no distress and appears stated age. Derm: Skin warm and dry, normal coloration for ethnicity. Head: Atraumatic, normocephalic and symmetric. Eyes: EOMs intact, no lid lag, and anicteric sclera Mouth: no lip lesions, mucus membranes moist. Mild erythema to pharynx, no lesions or enlarged tonsils noted. Cardiovascular: regular rate and rhythm with normal S1S2, no murmur, positive posterior tibial pulses bilaterally, and cap refill < 2 seconds. Lungs: Respirations even, regular, and unlabored on room air. Lungs CTA bilaterally, no rhonchi, no rales, no wheezing, and no accessory muscle usage. Abdominal: soft, nontender to palpation, no guarding, no appreciable orga nomegaly Ext: ROM intact. No gross muscle atrophy, no edema, no contractures Neuro: Speech clear, face symmetrical and CN II-XII grossly intact with no noted focal neuro deficits Psych: Alert and oriented to person, place, time, and situation. Appropriate and pleasant affect. Assessment and Plan of Care: Pyrexia, tachycardia, and reports of sore throat -Order placed for CBC, rapid strep test and culture, influenza A, influenza B, and COVID PCR to be completed. -Order placed for Motrin 800 mg p.o. x 1 dose followed by 600 mg 4 times daily as needed for fever. -Repeat vital signs every 4 hours. -Order placed for Cepacol lozenges every 2 hours as needed for sore throat. -Patient showing no signs of bacterial infection at this time, recommend symptomatic care/treatment. -Discussed with nursing staff to notify provider immediately if fevers persist or patient develops additional symptoms will reeval. Data and imaging reviewed: CBC unremarkable showing no signs of leukocytosis with WBC count of 9.9. -Influenza A and influenza B negative. -COVID PCR negative -Rapid strep negative. -Follow-up on strep culture. -Vital signs were obtained showing temp 102.7, heart rate 130, respiratory rate 20, blood pressure 112/67, and SpO2 of 99%. -Patient was given Tylenol 625 mg p.o. x 1 dose and Motrin 800 mg p.o. x 1 dose resulting in successful breakage of fever with repeat temp after 1 hour 98.5 F and heart rate of 87. Thank you for allowing us to participate in the care of this pleasant patient. Do not hesitate to contact us with questions. Someone can be reached from the [facility] [place] [place] hospitalist group all hours of the day at [phone] or via perfect serve. Patient was seen independently by Nurse Pracitioner. This document was prepared using [employer] dictation software. Please allow for errors in plugger worker, while rare they do occur. Jimmie Saleh NP rendered care for this patient independently, reviewed the findings and plan as documented in the note above. I did not physically speak with or examine the patient on this date. Objective - Vital Signs Vital signs: Vital Signs Temp 98.5 F 06/11/24 12:34 Pulse 87 06/11/24 12:34 Resp 16 06/11/24 12:34 BP 112/67 06/11/24 12:34 Pulse Ox 99 06/09/24 06:56 FiO2 - Labs CBC & Chem 7: 06/11/24 11:28 06/07/24 06:16 Labs: Abnormal Lab Results - Last 24 Hours (Table) 07/18/24 Range/Units 11:28 Neutrophils # 8.5 H (1.3-7.7) k/uL Lymphocytes # 0.9 L (1.0-4.8) k/uL
[2024-06-11] MEDS ORDERED: BENZOCAINE/MENTHOL LOZENG 1 EACH LOZENGE MUCOUS MEM PRN (18:13)
[2024-06-11] MEDS: IBUPROFEN 600 MG TAB PO PRN (20:50)
--- NOTE | 2024-06-11 21:58 | P.PN ---
Progress Note - Text Progress Note Date: 06/11/24 In-Patient Follow-up Chief Complaint: I have sore throat Subjective: The patient noted that his has sore throat and feel feverish. His temperature was 102.7 and pulse was 130. His cbc with diff came back normal. He was negative for influenza A and B, covid and rapid strep. The patients Prolixin was held and CPK was ordered. Later, the vital signs stabilized and fever came back normal. CPK was cancelled and Prolixin was resumed. The patient had no other complaints. The Prolixin dose to be held at 10 mg today. Will consider raising it tomorrow and then consider giving LA Prolixin for better compliance as an out-pt. The patient was explained the treatment plan. The patient agreed and consented. The patient has been attending groups irregularly. His participation is meager. His interaction with staff and peers is limited. Leading questions: The patient denied Depression and Anxiety. Denied SI or HI. He is still hearing voices but the voices have subdued and are tolerable. Sleep and Appetite: Improving. PRN meds/isolation/restraints/ change in status: None. Change in medical condition: No change. Change in medications: None. Side effects from Medications: None. Objective- MSE: Alert and attentive. Orientation times three. Dressed and Groomed: Appropriately. Pleasant and cooperative. Psychomotor Activity: Normal. Speech: Normal in tone, quality, and quantity. Mood: Improved. Affect: Appropriate to mood. SI or HI: None. Perceptual disturbance: Hears multiple voices. Talks in different voices by himself. Thought Content: No paranoia or other delusional thinking noted. Thought Process: Normal. Cognition: Intact Judgment and Insight: Fair. AIMS: Normal. Labs: No new labs. Diagnosis: No change. Plan and recommendation: Continue current Medications. Monitor MS and side effects of medications and adjust medications accordingly. Provide supportive psychotherapy. The patient provided psychoeducation. The patient provided Substance abuse counseling. Smoke cessation therapy. The patient to continue attending the pop activities. Medication Consent with explanation of risk/benefits and side effects: Explained and obtained.
[2024-06-12] MEDS: PENICILLIN V POTASSIUM 250 MG TAB PO SCH (14:31)
--- NOTE | 2024-06-12 17:25 | P.PN ---
Progress Note - Text Progress Note Date: 06/12/24 In-Patient Follow-up Chief Complaint: I have sore throat Subjective: The patient noted that he is feeling fine and ready to get his shot. The patient was explained that he had fever of 101 this morning. He was explained about NMS. He was informed that a test has been ordered, if that comes fine then the dose will be increased and this coming Saturday and he will be given his shot of Prolixin. The patient agreed. His Prolixin is increased to 15 mg at bedtime, it will be given if CPK is normal. Clinically, the patient does not show any symptoms of NMS. He has no stiffness or rigidity; he has no autonomic instability. He does have increased temp. His throat culture did come positive for Strep throat. The patient was explained the treatment plan. The patient agreed and consented. The patient has been attending groups irregularly. His participation is meager. His interaction with staff and peers is limited. Leading questions: The patient denied Depression and Anxiety. Denied SI or HI. He is still hearing voices but the voices are subdued and are tolerable. Sleep and Appetite: Improving. PRN meds/isolation/restraints/ change in status: None. Change in medical condition: No change. Change in medications: Prolixin 15 mg HS. Side effects from Medications: None. Objective- MSE: Alert and attentive. Orientation times three. Dressed and Groomed: Appropriately. Pleasant and cooperative. Psychomotor Activity: Normal. Speech: Normal in tone, quality, and quantity. Mood: Improved. Affect: Appropriate to mood. SI or HI: None. Perceptual disturbance: Hears multiple voices. Talks in different voices by himself. Thought Content: No paranoia or other delusional thinking noted. Thought Process: Normal. Cognition: Intact Judgment and Insight: Fair. AIMS: Normal. Labs: No new labs. Diagnosis: No change. Plan and recommendation: Continue current Medications. Increased Prolamin to 15 mg HS. Monitor MS and side effects of medications and adjust medications accordingly. Provide supportive psychotherapy. The patient provided psychoeducation. The patient provided Substance abuse counseling. Smoke cessation therapy. The patient to continue attending the pop activities. Medication Consent with explanation of risk/benefits and side effects: Explained and obtained.
[2024-06-13 06:13] VITALS: PULSE 100; RESP 20
--- NOTE | 2024-06-13 16:23 | P.PN ---
Progress Note - Text Subjective: NO SI, HI, AVH, paranoia, med side effects Objective- MSE: Alert and attentive. Orientation times three. Dressed and Groomed: Appropriately. Pleasant and cooperative. Psychomotor Activity: Normal. Speech: Normal in tone, quality, and quantity. Mood: Improved. Affect: Appropriate to mood. SI or HI: None. Perceptual disturbance: Denies Thought Content: No paranoia or other delusional thinking noted. Thought Process: Normal. Cognition: Intact Judgment and Insight: Fair. Diagnosis: No change. Plan and recommendation: Continue current Medications
[2024-06-14 08:22] VITALS: BP 146/83; TEMP 96.8
--- NOTE | 2024-06-14 15:18 | P.PN ---
Progress Note - Text Interval history: denies paranoia At this time patient denies any suicidal or homicidal ideations intent or plan. Denies any Auditory or visual hallucinations. Patient denies any side effects from the medications and has been compliant with meds. Mental status exam: General Appearance: [Patient appears to be older than stated age is alert, directable, and cooperative.] Behavior: irritable Speech: Patient's speech is fluent and nonpressured. Mood/Affect: Mood irritable, affect is congruent and constricted. Suicidality/Homicidality: Patient denies having any suicidal or homicidal ideation intent or plan. Perceptions: Patient denies any auditory or visual hallucinations. Though content/process: [There is no evidence of any delusional thought content and thought process is linear and goal-directed.] Memory and concentration: AOX3, grossly intact for the purposes of this session Judgment and insight: poor Assessment/Plan: Continue with current diagnosis. Patient continues to meet criteria for inpatient psychiatric admission for symptom stabilization and safety.[Patient will be maintained on current psychotropic medication regimen.] Monitor for medication compliance and for any psychotropic medication side effects. Will continue to monitor ongoing response to treatment. Encouraged participation in milieu.
[2024-06-15] MEDS: fluPHENAZine DECANOATE 25 MG/ML 5ML MDV IM STA (16:19)
--- NOTE | 2024-06-15 21:51 | P.DS ---
Providers Date of admission: 06/04/24 17:27 Expected date of discharge: 06/15/24 Attending physician: Anselmo Minaya MD Consults: 06/04/24 17:36 Consult Physician Routine Consulting Provider: Gloria Plaza Consult Reason/Comments: H&P Do you want consulting provider notified?: Yes Primary care physician: Physician Nonstaff - Discharge Diagnosis(es) (1) Schizophrenia, undifferentiated Status: Acute Priority: High Hospital Course: Discharge Summary HPI: Identifying Data: Mr. Grajeda is a 29 years old, single WM, who lives in [place], [place] with his mother in a house. Chief Complaint: I am taking Invega, it is not working. History of Psychiatric Illness- He patient noted that he was brought to the hospital for getting his medications reinstated and reevaluated. As per ER note, the patient was getting worse and c/o of hearing voices. The patient noted that he does not want to take Invega. He stated that he has low libido on Invega. The patient did not take LA Invega after leaving the hospital. He wants to switch to Prolamin. The patient was mumbling to himself and appeared preoccupied. The patient was gently explained that Invega may not be causing any side effects because he did not take after leaving the hospital following. He was shown the date he was given his last dose. The patient became uneasy and looked at me suspiciously and mumbled and asked, if he can see a different doctor. He was reassured and redirected. The patient got up and left the office stating that he will see a different doctor. He was noticed to be mumbling to self Drugs and alcohol history: The patient noted that he has used Heroin, Meth and weed. He has been off heroin and Meth for 7 months. He continues to smoke THC. He denied use of alcohol. Tobacco use: Vapes and smokes cigarettes. He smokes half pack in a week and vapes every week. Past Medical history: Asthma. Hospital Course: After admission, the patient was involved in pharmacotherapy, pop milieu, and individual psychodynamic psychotherapy. The patient was started was started on his home medications. He refused to take Invega sustenna claiming that it takes away his libido. He agreed to take Prolixin . The dose was titrated to obtain the desire effects. The patient tolerated medications well without any side effects. The patient was also involved in pop activities. The patient attended the groups and participated well. The patient interacted with peers and staff well. The patient slowly started showing improvement. He was given LA Prolixin 12.5 mg on the day of discharge with instructions to be given every 3 weeks, The hospital course was uneventful. The patient symptoms of depression, suicidal and homicidal ideations abated. The psychosis improved. The patient was stable to be discharged to out-patient care. The patient did not have any guns or weapons in possession at home. MSE: Alert and attentive. Orientation times three Dressed and Groomed: Appropriately. Pleasant and cooperative. Psychomotor Activity: Normal. Speech: Normal in tone, quality, and quantity. Mood: Anxious. Affect: Suspicious, tense, worried and perplexed. SI or HI: None. Perceptual disturbance: The patient was demonstrating hallucinatory behavior. Thought Content: Exhibited persecutory belief. Thinks that mother is Thought Process: Normal. Cognition: Intact Judgment and Insight: Poor AIMS: Normal Diagnosis: Schizophrenia, Undifferentiated Plan: The patient to be discharged today. The patient has attained good improvement since admission. He is stable to be followed as an outpatient. The patient is not suicidal or Homicidal. He does not pose any harm to self or others. The patient remains at a greater risk of self-harm or harm to others than general population on a chronic basis due to psychiatric illness and substance abuse. The patient will continue taking following medication post discharge. The importance of medication compliance and maintaining regular appointments at psychiatric out-pt and PCP clinic was explained and encouraged. The patient was also advised to seek alcohol counseling and attend AA/NA meetings. The understood and agreed with the recommendations. textile worker to arrange for and conduct family meeting to ensure safety upon discharge and answer any questions. The medical social consultant to arrange for patients follow-up appointments at [facility] for psychiatric care along with follow-up with PCP. The patient provided psychoeducation. Advised to call 911 or go to nearest ED or call this hospital in case of acute worsening of symptomatology, severe side effects or having suicidal, homicidal thoughts and feeling unsafe at home. Plan - Discharge Summary Discharge Rx Participant: No New Discharge Prescriptions: New fluPHENAZine [Prolixin] 5 mg PO HS 15 Days #30 tab fluPHENAZine decanoate [Prolixin Decanoate] 12.5 mg IM ONCE ml Penicillin V Potassium [Pen Vee K] 500 mg PO BID #6 tablet Continue Divalproex [Depakote] 250 mg PO TID 30 Days #90 tab Mirtazapine [Remeron] 15 mg PO HS 30 Days #30 tab Sublocade 100mg/0.5ml 100 mg SQ Q28D Discontinued Paliperidone IM [Invega Sustenna] 156 mg IM Q28D Meloxicam [Mobic] 15 mg PO DAILY Discharge Medication List Divalproex [Depakote] 250 mg PO TID 30 Days #90 tab 04/15/24 [Rx] Mirtazapine [Remeron] 15 mg PO HS 30 Days #30 tab 04/15/24 [Rx] Sublocade 100mg/0.5ml 100 mg SQ Q28D 06/04/24 [History] Penicillin V Potassium [Pen Vee K] 500 mg PO BID #6 tablet 06/15/24 [Rx] fluPHENAZine [Prolixin] 5 mg PO HS 15 Days #30 tab 06/15/24 [Rx] fluPHENAZine decanoate [Prolixin Decanoate] 12.5 mg IM ONCE ml 06/15/24 [Rx] Follow up Appointment(s)/Referral(s): [facility] [Outside] - 06/17/24 1:00 pm (06-17-24 at 1:00 with Tiffanie Contreras ([facility]) 06-24-24 at 11:[address] Mancini ) [facility] [NON-STAFF] - 1 Week Patient Instructions/Handouts: How to Stop Smoking (DC), Strep Throat (DC), Schizophrenia (ED) Activity/Diet/Wound Care/Special Instructions: Avoid the use of street drugs and alcohol. Take all medications as prescribed. When you are in need of refills on your medications, please contact your medical provider and/or outpatient psychiatrist/provider to have this done. Please go to your scheduled outpatient appointment for aftercare treatment. If symptoms return or become worse, call the crisis line at and/or go to the nearest emergency room for evaluation. National Suicide Hotline 988 Discharge Disposition: HOME SELF-CARE
== END 2024-06-15 18:41 | disposition home or self-care (01) | DRG 885 ==
LOC: EC 15:01 → 3MHU 17:27
PROVIDERS: ADMIT Psychiatry & Neurology Psychiatry; ATTEND Psychiatry & Neurology Psychiatry
DX: F20.3 Undifferentiated schizophrenia (principal); E66.9 Obesity, unspecified; Z68.34 Body mass index [BMI] 34.0-34.9, adult; F17.210 Nicotine dependence, cigarettes, uncomplicated; F31.9 Bipolar disorder, unspecified; I10 Essential (primary) hypertension; J02.0 Streptococcal pharyngitis; J45.909 Unspecified asthma, uncomplicated; M72.2 Plantar fascial fibromatosis; Z79.1 Long term (current) use of non-steroidal anti-inflammatories (NSAID); Z79.899 Other long term (current) drug therapy; Z91.148 Patient's other noncompliance with medication regimen for other reason; Z71.3 Dietary counseling and surveillance; F17.290 Nicotine dependence, other tobacco product, uncomplicated
CPT/HCPCS: 80053; 80164; 80306; 81003; 82075; 82550; 83036; 84443; 85025; 87070; 87502; 87635; 87651; 93005; 99285

== ENCOUNTER 2024-08-04 15:05 | Inpatient (IN) | payer MEDICARE, MEDICAID ==
--- NOTE | 2024-08-04 15:29 | ED ---
General Adult HPI - General Stated complaint: Mental Health Time Seen by Provider: 08/04/24 15:09 Source: patient, RN notes reviewed Limitations: no limitations - History of Present Illness Initial comments: Patient is a 29-year-old male presenting to the emergency department with concerns for mental health evaluation. Patient states he was brought on a pickup order. Patient states his mother thought he was yelling to voices however he was just yelling at call of duty. Patient does have hallucinations however they are chronic and unchanged. No suicidal or homicidal thoughts. Patient is eating and drinking well. Patient is sleeping well. Patient denies any physical complaints - Related Data Home Medications Medication Instructions Recorded Confirmed Divalproex ER [Depakote ER] 750 mg PO DAILY 08/04/24 08/04/24 fluPHENAZine decanoate [Prolixin 25 mg IM Q14D 08/04/24 08/04/24 Decanoate] methylPREDNISolone [Medrol Dose See Taper PO DIRECTED 08/04/24 08/04/24 Pack] Previous Rx's Medication Instructions Recorded Mirtazapine [Remeron] 15 mg PO HS 30 Days #30 tab 04/15/24 Allergies Allergy/AdvReac Type Severity Reaction Status Date / Time No Known Allergies Allergy Verified 08/04/24 17:12 Review of Systems ROS Statement: Those systems with pertinent positive or pertinent negative responses have been documented in the HPI. ROS Other: All systems not noted in ROS Statement are negative. Constitutional: Denies: fever Eyes: Denies: eye pain ENT: Denies: ear pain Respiratory: Denies: cough Cardiovascular: Denies: chest pain Endocrine: Denies: fatigue Gastrointestinal: Denies: abdominal pain Neurological: Denies: weakness Past Medical History Past Medical History: No Reported History, Asthma Additional Past Medical History / Comment(s): HPV- resolved History of Any Multi-Drug Resistant Organisms: None Reported Past Surgical History: No Surgical Hx Reported Additional Past Surgical History / Comment(s): wisdom teeth Past Anesthesia/Blood Transfusion Reactions: No Reported Reaction Past Psychological History: Anxiety, Bipolar, Depression, Schizophrenia Smoking Status: Vaper Past Alcohol Use History: Occasional Additional Past Alcohol Use History / Comment(s): Patient denies cigarette use. He vapes. He denies any alcohol use. He does use marijuana on a regular basis. He does not think he has used other street drugs. He is unemployed and single. He does not have any children. Past Drug Use History: Marijuana - Past Family History Father Additional Family Medical History / Comment(s): Father is alive at age 52 with no major medical problems. Mother Additional Family Medical History / Comment(s): Mother is alive at age 52 with no major medical problems. Brother(s) Additional Family Medical History / Comment(s): Patient has one half-brother and one half-sister with no major medical problems. General Exam Limitations: no limitations General appearance: alert, in no apparent distress Head exam: Present: normocephalic Eye exam: Present: normal appearance Neck exam: Present: normal inspection Respiratory exam: Present: normal lung sounds bilaterally Cardiovascular Exam: Present: regular rate, normal rhythm GI/Abdominal exam: Present: soft. Absent: tenderness Extremities exam: Present: normal inspection Neurological exam: Present: alert Psychiatric exam: Present: normal affect, normal mood Skin exam: Present: normal color Course Vital Signs 08/04/24 15:40 Temperature 98.7 F Pulse Rate 94 Respiratory 18 Rate Blood Pressure 136/97 O2 Sat by Pulse 98 Oximetry Medical Decision Making - Medical Decision Making Was pt. sent in by a medical professional or institution (, PA, OTHER SALES SUPPORT WORKER, urgent care, hospital, or prison...) When possible be specific @ -No Did you speak to anyone other than the patient for history (EMS, parent, family, police, friend...)? What history was obtained from this source @ -No Did you review nursing and triage notes (agree or disagree)? Why? @ -I reviewed and agree with nursing and triage notes Were old charts reviewed (outside hosp., previous admission, EMS record, old EKG, old radiological studies, urgent care reports/EKG's, prison records)? Report findings @ -Patient petitioned by family Differential Diagnosis (chest pain, altered mental status, abdominal pain women, abdominal pain men, vaginal bleeding, weakness, fever, dyspnea, syncope, headache, dizziness, GI bleed, back pain, seizure, CVA, palpatations, mental health, musculoskeletal)? @ -Differential Mental Health Depression, anxiety, bipolar, psychosis, schizophrenia, borderline personality, situational depression, adjustment disorder, behavioral disorder, brain tumor, malingering, substance abuse, encephalopathy, medication reaction, dementia, hypothyroidism, degenerative neurologic disorder, lupus.... This is not meant to be all-inclusive list EKG interpreted by me (3pts min.). @ -As above X-rays interpreted by me (1pt min.). @ -None done CT interpreted by me (1pt min.). @ -None done U/S interpreted by me (1pt. min.). @ -None done What testing was considered but not performed or refused? (CT, X-rays, U/S, labs)? Why? @ -None What meds were considered but not given or refused? Why? @ -None Did you discuss the management of the patient with other professionals (professionals i.e. DrPapito, PA, OTHER SALES SUPPORT WORKER, lab, RT, psych nurse, foster care social worker, automatic casting machine operator, teacher, chief digital officer, clinical case manager)? Give summary @ -I did speak with mental health nurse with plans for admission Was smoking cessation discussed for >3mins.? @ -No Was critical care preformed (if so, how long)? @ -No Were there social determinants of health that impacted care today? How? (Homelessness, low income, unemployed, alcoholism, drug addiction, transportation, low edu. Level, literacy, decrease access to med. care, halfway, rehab)? @ -No Was there de-escalation of care discussed even if they declined (Discuss DNR or withdrawal of care, Hospice)? DNR status @ -No What co-morbidities impacted this encounter? (DM, HTN, Smoking, COPD, CAD, Cancer, CVA, ARF, Chemo, Hep., AIDS, mental health diagnosis, sleep apnea, morbid obesity)? @ -None Was patient admitted / discharged? Hospital course, mention meds given and route, prescriptions, significant lab abnormalities, going to OR and other pertinent info. @ -Patient presents for mental health evaluation. Patient has been off his medication for over a week. Concern for hallucinations. Patient will be admitted for psychiatric care Undiagnosed new problem with uncertain prognosis? @ -No Drug Therapy requiring intensive monitoring for toxicity (Heparin, Nitro, Insulin, Cardizem)? @ -No Were any procedures done? @ -No Diagnosis/symptom? @ -Psychosis Acute, or Chronic, or Acute on Chronic? @ -Acute on chronic chronic Uncomplicated (without systemic symptoms) or Complicated (systemic symptoms)? @ -Default Side effects of treatment? @ -No Exacerbation, Progression, or Severe Exacerbation? @ -No Poses a threat to life or bodily function? How? (Chest pain, [place], [place], pneumonia, PE, COPD, DKA, ARF, appy, cholecystitis, CVA, Diverticulitis, Homicidal, Suicidal, threat to staff... and all critical care pts) @ -No Disposition Clinical Impression: Acute psychosis Disposition: TRANSFER TO PSYCH HOSP/UNIT Is patient prescribed a controlled substance at d/c from ED?: No Referrals: Marco Antonio Gutiérrez MD [Primary Care Provider] - 1-2 days Time of Disposition: 18:04
[2024-08-04] MEDS ORDERED: MAG HYDROX/AL HYDROX/SIMETH 355 ML BOTTLE PO PRN (19:49)
[2024-08-04] MEDS ORDERED: MAGNESIUM HYDROXIDE 2,400 MG/30 ML CUP PO PRN (19:49)
[2024-08-04] MEDS ORDERED: ACETAMINOPHEN TAB 325 MG TAB PO PRN (19:49)
[2024-08-04] MEDS ORDERED: IBUPROFEN 600 MG TAB PO PRN (19:49)
[2024-08-04] MEDS ORDERED: HALOPERIDOL LACTATE 5 MG/ML 1 ML VIAL IM PRN (19:49)
[2024-08-04] MEDS: MIRTAZAPINE 15 MG TAB PO SCH (21:23)
[2024-08-05] MEDS: DIVALPROEX ER 250 MG TAB.ER.24H PO SCH (09:00)
[2024-08-05] MEDS: NICOTINE 14MG/24HR PATCH TRANSDERM SCH (09:05)
[2024-08-05] MEDS: NICOTINE GUM (POLACRILEX) 2 MG GUM BUCCAL PRN (09:35)
--- NOTE | 2024-08-05 12:08 | P.HP ---
Psychiatric H&P - . H&P Date: 08/05/24 History & Physical: Allergies Allergy/AdvReac Type Severity Reaction Status Date / Time No Known Allergies Allergy Verified 08/04/24 17:12 Vital Signs Temp 98.4 F 08/05/24 07:02 Pulse 110 H 08/05/24 07:02 Resp 18 08/04/24 20:57 BP 135/88 08/05/24 07:02 Pulse Ox 96 08/04/24 20:57 FiO2 Intake & Output 08/04/24 08/05/24 08/05/24 18:59 06:59 18:59 Weight 99.79 kg 108.5 kg Laboratory Last Values Valproic Acid 39.5 ug/mL 08/04/24 19:59 SARS-CoV-2 (PCR) Not Detected (Not Detectd) 08/04/24 15:28 08/05/24 12:07 Psychiatric Evaluation Identifying Data: Mr. Venegas is a 29 years old, single, white male, who live in [place]. Chief Complaint: History of Psychiatric Illness- The patient was brought to the hospital for talking to the voices and yelling. The patient noted that he was just yelling at call of duty. The patient noted that he talks to the voices. He has multiple voices and he is allowed to talk to them. He wants to be discharged because last night he was told that he must go up to have an evaluation and then he will be discharged. The patient is argumentative insisting on being discharged stating that he does not have Schizophrenia or schizoaffective disorder but has multiple personality disorder and talks to these voices. He stated that medications dont work and he should not be on them. He stated that his penis does not work because too many things are wrong with his genetics. The patient has had chronic auditory hallucinations. The patient denied any other symptoms. The patient was brought on pick-up order. He has a court appointed guardian. The patient gets Injection Prolixin 25 mg [id number]. His next dose was on 07/24/24. Next dose is due on 08/07/24. He goes to [facility], [place]. As per patient, he saw Dr. Chamberlain 1-2 weeks ago. Past Psychiatric History; The patient has h/o schizoaffective disorder, bipolar type. He was first treated for psychiatric disorder at age 21. He has had several admissions since then for psychosis due to noncompliance with medications and substance abuse. This his 3rd admission to this hospital since . He goes to [facility]. [place] for out-pt treatment. Leading questions: The patient denied /admitted to Depression and Anxiety. Denied SI or HI. The patient admitted to hearing voices and he knows their names. He noted their names are Hugo, Dariana, Shonda stinson, Shraddha., Drugs and alcohol history: The patient has h/o opioid use disorder, alcohol use disorder, amphetamine type substance use disorder, marijuana use disorder and inhalant use disorder. Tobacco use: Vapes nicotine. Past Medical history: None significant. Family History of Psychiatric Disorder: Mother has bipolar disorder. Father has anxiety disorder. Social History and Family History: Born and raised: In [place] and [place]. Education: Work History: Longest job for 1 year at [employer]. Marriage History: Never . Legal History Guardianship: Court appointed guardian. OTC: None. Allergies: None, as per patient. Objective: MSE: Alert and attentive. Orientation times three Dressed and Groomed: Appropriately. Pleasant and cooperative. Psychomotor Activity: Normal. Speech: Normal in tone, quality, and quantity. Mood: I feel fine. Affect: Angry and upset. SI or HI: None. Perceptual disturbance: The patient admitted to hearing voices. Thought Content: No paranoia or other delusional thinking noted. Thought Process: Normal. Cognition: Intact Judgment and Insight: Poor. AIMS: Normal Labs: Available labs reviewed. Diagnosis: Schizoaffective Disorder. Plan and Recommendations: Continue current Medications. Monitor MS and side effects of medications and adjust medications accordingly. Provide supportive psychotherapy and psychoeducation. The patient provided psychoeducation. The patient provided with substance abuse counselling and advised to attend AA/NA Smoke cessation therapy. The patient to attend pop Milieu. CBC with Diff, CMP, TSH, Lipid Profile, HbA1c, EKG, Test ordered. Medication Consent with explanation of risk/benefits and side effects. The patient refused to sign the medication consent form stating that he wants to talk a different doctor because he disagrees with medications prescribed and his diagnosis.
[2024-08-05 12:57] LABS: Basophils % (A) 0 %; Eosinophils # (A) 0.1 k/uL (0-0.7); Eosinophils % (A) 2 %; HCT 43.3 % (39.0-53.0); HGB 14.4 gm/dL (13.0-17.5); Lymphocytes # (A) 1.1 k/uL (1.0-4.8); Lymphocytes % (A) 21 %; MCH 32.4 pg (25.0-35.0); MCHC 33.2 g/dL (31.0-37.0); MCV 97.6 fL (80.0-100.0); Mean Platelet Volume 7.7; Monocytes # (A) 0.3 k/uL (0-1.0); Monocytes % (A) 5 %; Neutrophils # (A) 3.6 k/uL (1.3-7.7); Neutrophils % (A) 71 %; Platelet Count 293 k/uL (150-450); RBC 4.43 m/uL (4.30-5.90); RDW 13.7 % (11.5-15.5); WBC 5.1 k/uL (3.8-10.6)
[2024-08-05 13:12] LABS: ALT 71 U/L (4-49); AST 57 U/L (17-59); African American GFR (CKD) >90 (>60 ml/min/1.73 sqM); Albumin 4.4 g/dL (3.5-5.0); Alkaline Phosphatase 73 U/L (38-126); Anion Gap 5 mmol/L; Bilirubin, Delta 0.4 mg/dL (0.0-0.2); Blood Urea Nitrogen 12 mg/dL (9-20); Calcium 9.4 mg/dL (8.4-10.2); Carbon Dioxide 30 mmol/L (22-30); Chloride 104 mmol/L (98-107); Glucose 101 mg/dL (74-99); Non-African American GFR(CKD) >90 (>60 ml/min/1.73 sqM); Potassium 4.5 mmol/L (3.5-5.1); Sodium 139 mmol/L (137-145); Total Bilirubin 1.4 mg/dL (0.2-1.3); Total Protein 7.1 g/dL (6.3-8.2)
--- NOTE | 2024-08-05 15:07 | P.MDCNMH ---
History of Present Illness H&P Date: 08/05/24 This is a 29-year-old male who presented to the emergency department with mental health evaluation and was brought here and petitioned for further mental health evaluation. Patient follows with Dr. Gutiérrez in the outpatient setting with a past medical history of asthma, bipolar depression and medical record reports schizophrenia although patient is denying. Patient also has history of depression and vaping and uses marijuana on a regular basis and denies alcohol use. COVID was negative and other labs reviewed and within normal limits other than a mildly elevated ALT of 71. TSH is 0.377 which is low and will add a T3 and T4 free for evaluation. On exam patient is afebrile with no reports of chest pain or shortness of breath. Patient is angry and upset on exam as he reports he does not have schizophrenia and would like the psychiatrist to stop saying that and is requesting to go home. Patient was petitioned and this was expressed that he must stay here until cleared and released by the psychiatrist. REVIEW OF SYSTEMS: CONSTITUTIONAL: No fever, no malaise, no fatigue. HEENT: No recent visual problems or hearing problems. Denied any sore throat. CARDIOVASCULAR: No chest pain, orthopnea, PND, no palpitations, no syncope. PULMONARY: No shortness of breath, no cough, no hemoptysis. GASTROINTESTINAL: No diarrhea, no nausea, no vomiting, no abdominal pain. NEUROLOGICAL: No headaches, no weakness, no numbness. HEMATOLOGICAL: Denies any bleeding or petechiae. GENITOURINARY: Denies any burning micturition, frequency, or urgency. MUSCULOSKELETAL/RHEUMATOLOGICAL: Denies any joint pain, swelling, or any muscle pain. ENDOCRINE: Denies any polyuria or polydipsia. The rest of the 14-point review of systems is negative. PHYSICAL EXAMINATION: GENERAL: The patient is alert and oriented x3, not in any acute distress. Quite anxious and agitated, well developed, well nourished. Obese HEENT: Pupils are round and equally reacting to light. EOMI. No scleral icterus. No conjunctival pallor. Normocephalic, atraumatic. No pharyngeal erythema. No thyromegaly. CARDIOVASCULAR: S1 and S2 present. No murmurs, rubs, or gallops. PULMONARY: Chest is clear to auscultation, no wheezing or crackles. ABDOMEN: Soft, obese nontender, nondistended, normoactive bowel sounds. No palpable organomegaly. MUSCULOSKELETAL: No joint swelling or deformity. EXTREMITIES: No cyanosis, clubbing, or pedal edema. NEUROLOGICAL: Gross neurological examination did not reveal any focal deficits. SKIN: No rashes. Assessment: Acute psychosis with paranoia History of anxiety and depression History of asthma, not in exacerbation History of bipolar/schizophrenia THC use Vaping Obesity with a BMI 37.5 Full code Plan: Patient was petitioned to [facility] [address]. psychiatry unit for further psychiatric evaluation Home medications reviewed and resumed as appropriate Patient encouraged to attend group therapy sessions and be compliant with medications and psychiatric evaluation Patient instructed to follow-up with primary care provider on discharge Thank you kindly for this consultation The impression and plan of care has been dictated by Trudy Marcelino, Nurse Practitioner as directed. Dr. Boo MD I have performed a history and examination and MDM of this patient, discussed the same with the dictator, and agree with the dictator's assessment and plan as written ,documented as a scribe. Based on total visit time, I have performed more than 50% of the visit. Past Medical History Past Medical History: Asthma Additional Past Medical History / Comment(s): HPV- resolved History of Any Multi-Drug Resistant Organisms: None Reported Past Surgical History: No Surgical Hx Reported Additional Past Surgical History / Comment(s): wisdom teeth Past Anesthesia/Blood Transfusion Reactions: No Reported Reaction Past Psychological History: Anxiety, Bipolar, Depression, Schizophrenia Smoking Status: Vaper Past Alcohol Use History: Occasional Additional Past Alcohol Use History / Comment(s): Patient denies cigarette use. He vapes. He denies any alcohol use. He does use marijuana on a regular basis. He does not think he has used other street drugs. He is unemployed and single. He does not have any children. Past Drug Use History: Marijuana - Past Family History Father Additional Family Medical History / Comment(s): Father is alive at age 52 with no major medical problems. Mother Additional Family Medical History / Comment(s): Mother is alive at age 52 with no major medical problems. Brother(s) Additional Family Medical History / Comment(s): Patient has one half-brother and one half-sister with no major medical problems. Medications and Allergies Home Medications Medication Instructions Recorded Confirmed Type Mirtazapine [Remeron] 15 mg PO HS 30 Days #30 tab 04/15/24 08/04/24 Rx Divalproex ER [Depakote ER] 750 mg PO DAILY 08/04/24 08/04/24 History fluPHENAZine decanoate [Prolixin 25 mg IM Q14D 08/04/24 08/04/24 History Decanoate] methylPREDNISolone [Medrol Dose See Taper PO DIRECTED 08/04/24 08/04/24 History Pack] Allergies Allergy/AdvReac Type Severity Reaction Status Date / Time No Known Allergies Allergy Verified 08/04/24 17:12 Physical Exam Vitals: Vital Signs Temp Pulse Pulse Resp BP BP Pulse Ox 08/05/24 07:02 98.4 F 110 H 135/88 08/04/24 20:57 98.6 F 71 18 131/79 96 08/04/24 20:01 98.7 F 67 18 118/73 97 08/04/24 18:37 99.5 F 95 20 130/78 93 L 08/04/24 15:40 98.7 F 94 18 136/97 98 Intake and Output 08/04/24 08/05/24 08/05/24 22:59 06:59 14:59 Other: Weight 108.5 kg Cranial Nerve Examination - Cranial Nerves Cranial Nerve I- Olfactory: Intact Cranial Nerve II- Optic: Intact Cranial Nerve III- Oculomotor: Intact Cranial Nerve IV- Trochlear: Intact Cranial Nerve V- Trigeminal: Intact Cranial Nerve - Abducens: Intact Cranial Nerve VII- Facial: Intact Cranial Nerve VIII- Auditory: Intact Cranial Nerve IX- Glossopharyngeal: Intact Cranial Nerve X- Vagus: Intact Cranial Nerve XI- Accessory: Intact Cranial Nerve XII- Hypoglossal: Intact Results CBC & Chem 7: 08/05/24 11:58 08/05/24 11:58 Assessment and Plan Time with Patient: Less than 30
[2024-08-05 15:59] LABS: T4, Free (Free Thyroxine) 1.41 ng/dL (0.78-2.19)
[2024-08-05] MEDS: LORazepam 1 MG TAB PO PRN (17:28)
[2024-08-05] MEDS: haloperidoL 5 MG TAB PO PRN (18:00)
[2024-08-05 19:15] LABS: Chol/HDL Ratio 3.37 Ratio; LDL Cholesterol,Calculated 91.1 mg/dL (0.0-131.0)
[2024-08-06] MEDS: clonazePAM 0.5 MG TAB PO SCH ×2 (09:37→12:22)
[2024-08-06] MEDS: hydrOXYzine HCL 25 MG TAB PO PRN (09:37)
[2024-08-06] MEDS: LORazepam 2 MG/ML INJ IM PRN (13:30)
[2024-08-06] MEDS: flUPHENAZine 2.5 MG/ML (MDV) 10 ML VIAL IM ONE (16:02)
[2024-08-07] MEDS ORDERED: fluPHENAZine DECANOATE 25 MG/ML 5ML MDV IM ONE ×2 (07:20→16:00)
--- NOTE | 2024-08-07 11:52 | P.PN ---
Progress Note - Text Progress Note Date: 08/07/24 Follow-up Mediation Review Chief Complaint: I need something for anxiety. Subjective: The patient was restless and unable to sit in chair for more than few minutes. He walked around most of the time. He was also irritable and anxious. The patient has been requesting Xanax for anxiety. Last night he asked for Haldol for severe anxiety. The patient has moderate akathisia secondary to antipsychotic medication. Discussed with patient adding Klonopin to help his anxiety and restlessness. The patient agreed. He feels that he is doing fine and should be discharged. The patient has been interacting with staff and peers fine. He has been sleeping fine. He has not been yelling or talking to himself. He acknowledges hearing voices but they are not bothering him. His Prolixin shot is due on 08/07/24. Will hold this at this time to address akathisia and recommend giving in 3 weeks. Meanwhile, the patient will be given oral Prolixin 5 mg bid with klonopin. Later, patient demanded to be given Xanax 3 mg po tid. He also noted that his voices are telling him that his doctor is a bad doctor. He stated that the voices tell him that his diagnosis is Multiple personality disorder and anxiety disorder. He feels that he is being given wrong medications. He wants to aramis the doctor and the hospital. The patient is very ambivalent about medications and is actively hearing voices. He is coming to the nursing desk often and demanding medications for panic attacks. He is very intrusive and knocked at my office to discuss his diagnosis and get Xanax for panic attacks. The patient has been attending the groups. The participation is limited. The interaction with staff and peers is good. The patient is compliant with treatment recommendations. Leading questions: The patient denied depression. Admitted to Anxiety. Denied SI or HI. Denied symptoms of Paranoia. He does hear voices of 4 people. Sleep and Appetite: Fair Change in family/ living/job/financial/daily routine: No change. Change in medical condition: No change. Change in medications: Increase Klonopin 0.5mg po tid. Add Prolixin 5 mg po bid. Hydroxyzine 25 mg po tid as needed for anxiety. Side effects from Medications: Akathisia. Objective- MSE: Alert and attentive. Orientation times three. Dressed and Groomed: Appropriately. Pleasant and cooperative. Psychomotor Activity: Normal. Speech: Normal in tone, quality, and quantity. Mood: I am having panic attacks. Affect: Angry, irritable, labile. SI or HI: None. Perceptual disturbance: The patient is actively hearing voice and asked me to talk to the voices being a good doctor. Thought Content: The patient has paranoid delusions. He feels that he is being treated with wrong with medications. He also accuses for making wrong medications. He believes that he is wrongly held here and does not need mood stabilizer or medications for Schizophrenia. He wants to aramis the hospital and the doctor. No other delusional thinking noted. Thought Process: Normal. Cognition: Intact Judgment and Insight: Poor AIMS: Normal. Labs: No new labs. Diagnosis: No change. Plan and Recommendations: Continue current Medications. Klonopin 0.5 mg po tid, Prolixin 5 mg po bid, Hydroxyzine 25 mg po tid prn. Monitor MS and side effects of medications and a djust medications accordingly. Provide supportive psychotherapy. The patient provided psychoeducation and advised The patient provided Substance abuse counseling. Smoke cessation therapy. The patient to attend pop activities. Medication Consent with explanation of risk/benefits and side effects: Explained and obtained.
--- NOTE | 2024-08-07 14:55 | P.PN ---
Progress Note - Text Progress Note Date: 08/07/24 Follow-up Mediation Review Chief Complaint: I don't have anxiety now. Subjective: The patient was noted to be calm and pleasant most of the time. He did not complain of having panic attacks or severe anxiety. The patient noted that Klonopin is working fine. He is no more feeling anxious or having panic attacks. He did talk about his diagnosis. He wants his diagnosis to be changed to Borderline personality disorder or Multiple personality disorder from Schizophrenia. He argues that he does not need any shots or medications like Depakote or Prolixin. He feels fine with Klonopin. He thinks that he was sent to the hospital to get his diagnosis changed. He states that he is getting wrong medications due to wrong diagnosis. He has been taking all his medications. He reports no side effects. The patient has been attending the groups. The participation is limited. The interaction with staff is fair.. The patient is compliant with treatment recommendations. Leading questions: The patient denied depression. Admitted to Anxiety. Denied SI or HI. Denied symptoms of Paranoia. He does hear voices of 4 people. Sleep and Appetite: Fair Change in family/ living/job/financial/daily routine: No change. Change in medical condition: No change. Change in medications: None. Side effects from Medications: None. Objective- MSE: Alert and attentive. Orientation times three. Dressed and Groomed: Appropriately. Pleasant and cooperative. Psychomotor Activity: Normal. Speech: Normal in tone, quality, and quantity. Mood: I am having panic attacks. Affect: Angry, irritable, labile. SI or HI: None. Perceptual disturbance: No over hallucinatory behavior noted. Thought Content: The patient has paranoid delusions. No other delusional thinking noted. Thought Process: Normal. Cognition: Intact Judgment and Insight: Poor AIMS: Normal. Labs: No new labs. Diagnosis: No change. Plan and Recommendations: Continue current Medications. Monitor MS and side effects of medications and adjust medications accordingly. Provide supportive psychotherapy. The patient provided psychoeducation and advised The patient provided Substance abuse counseling. Smoke cessation therapy. The patient to attend pop activities. Medication Consent with explanation of risk/benefits and side effects: Explained and obtained.
[2024-08-07] MEDS ORDERED: flUPHENAZine 2.5 MG/ML (MDV) 10 ML VIAL IM PRN (18:16)
[2024-08-07 21:42] LABS: Appearance,Urine Clear (Clear); Bilirubin,Urine Negative (Negative); Blood,Urine Negative (Negative); Color,Urine Yellow; Glucose,Urine (UA) Negative (Negative); Ketones,Urine Negative (Negative); Leukocyte Esterase,Urine Negative (Negative); Nitrite,Urine Negative (Negative); PH, Urine 6.5 (5.0-8.0); Protein,Urine Trace (Negative); Specific Gravity,Urine 1.028 (1.001-1.035)
[2024-08-07 21:51] LABS: Amphetamine Screen,Urine Not Detected (NotDetected); Barbiturate Screen,Urine Not Detected (NotDetected); Benzodiazepines Screen,Urine Detected (NotDetected); Cocaine Screen,Urine Not Detected (NotDetected); Methadone Screen, Urine Not Detected (NotDetected); Opiate Screen,Urine Not Detected (NotDetected); Oxycodone Screen, Urine Not Detected (NotDetected); Phencyclidine Screen,Urine Not Detected (NotDetected); Tricyclic Antidepressant,Urine Not Detected (NotDetected); Urn Cannabinoid Scrn Detected (NotDetected)
--- NOTE | 2024-08-08 10:56 | P.PN ---
Progress Note - Text Progress Note Date: 08/08/24 Interval history: Patient was seen wandering the hallways and was directable and agreeable to speak with advertising writer. he continues to insist that his diagnosis is incorrect and that he does not have borderline personality disorder, which is "bi-personality" but rather has multiple personality disorder. he continues to have poor insight into condition and need for medication. he states that he continues to have auditory hallucinations of different "personalities "and says that they have mostly been pleasant and commentary in nature. he endorses good sleep and appetite. He states that his mood is "anxious " due to his perception of misdiagnosis. He would like to be continued on Klonopin. At this time patient denies any suicidal or homicidal ideations intent or plan. Denies any visual hallucinations. Patient denies any side effects from the medications and has been compliant with meds. Mental status exam: General Appearance: Patient appears to be stated age is alert, directable, and cooperative. Upside down cross tattoo behind L earlobe Behavior: No agitated behavior. Patient is calm and directable Speech: Patient's speech is fluent and nonpressured. Mood/Affect: Mood is euthymic, affect is congruent and constricted. Suicidality/Homicidality: Patient denies having any suicidal or homicidal ideation intent or plan. Perceptions: Patient denies any visual hallucinations. Commentary AH that are not bothersome to him. Not responding to internal stimuli Though content/process: There is no evidence of any delusional thought content and thought process is linear and goal-directed. Memory and concentration: AOX3, grossly intact for the purposes of this session Judgment and insight: improving mildly Assessment/Plan: Continue with current diagnosis. Patient continues to meet criteria for inpatient psychiatric admission for symptom stabilization and sa fety. Patient will be maintained on current psychotropic medication regimen. Monitor for medication compliance and for any psychotropic medication side effects. Will continue to monitor ongoing response to treatment. Encouraged participation in milieu.
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
--- NOTE | 2024-08-10 15:59 | P.PN ---
Progress Note - Text Progress Note Date: 08/10/24 Follow-up Mediation Review Chief Complaint: Anxiety is under control. Subjective: The patient was noted to be calm and pleasant throughout this visit. He did not show any hallucinatory behavior or brought up and delusional subject. He held a calm goal directed conversation. He did not complain of having panic attacks or severe anxiety. He did not talk about borderline personality disorder or Multiple personality disorder. He has been taking all his medications. He reports no side effects. The patient guardian wants patient to go to long term because of concerns about his unpredictable behavior when not taking medications. An effort will be made to get the patient in [facility] program, if eligible and mother is willing to have him at home. The patient has been attending the groups. The participation is limited. The interaction with staff is fair.. The patient is compliant with treatment recommendations. Leading questions: The patient denied depression. Admitted to Anxiety. Denied SI or HI. Denied symptoms of Paranoia. He does hear voices of 4 people. Sleep and Appetite: Fair Change in family/ living/job/financial/daily routine: The patient may be placed in long term post discharge. Change in medical condition: No change. Change in medications: None. Side effects from Medications: None. Objective- MSE: Alert and attentive. Orientation times three. Dressed and Groomed: Appropriately. Pleasant and cooperative. Psychomotor Activity: Normal. Speech: Normal in tone, quality, and quantity. Mood: I am having panic attacks. Affect: Angry, irritable, labile. SI or HI: None. Perceptual disturbance: No over hallucinatory behavior noted. Thought Content: No paranoia noted today. No other delusional thinking noted. Thought Process: Normal. Cognition: Intact Judgment and Insight: Poor AIMS: Normal. Labs: No new labs. Diagnosis: No change. Plan and Recommendations: Continue current Medications. Monitor MS and side effects of medications and adjust medications accordingly. Provide supportive psychotherapy. The patient provided psychoeducation and advised The patient provided Substance abuse counseling. Smoke cessation therapy. The patient to attend pop activities. Medication Consent with explanation of risk/benefits and side effects: Explained and obtained.
--- NOTE | 2024-08-11 12:47 | P.PN ---
Progress Note - Text Progress Note Date: 08/11/24 Follow-up Mediation Review Chief Complaint: I am getting discharged today. Subjective: The patient was noted to be calm and pleasant throughout this visit. He did not show any hallucinatory behavior or brought up and delusional subject. He wants to be discharged. The patient was explained that his guardian wants to place him in a assisted because she is concerned about non-compliance with medications at home and being threatening to family. The patient was upset because he is uncertain about his disposition. Overall, patient is stable. He ia compliant with medications. No side effects reported. The patient has been attending the groups. The participation is limited. The interaction with staff is fair.. The patient is compliant with treatment recommendations. Leading questions: The patient denied depression. Admitted to Anxiety. Denied SI or HI. Denied symptoms of Paranoia. He does hear voices of 4 people. Sleep and Appetite: Fair Change in family/ living/job/financial/daily routine: The patient may be placed in assisted post discharge. Change in medical condition: No change. Change in medications: None. Side effects from Medications: None. Objective- MSE: Alert and attentive. Orientation times three. Dressed and Groomed: Appropriately. Pleasant and cooperative. Psychomotor Activity: Normal. Speech: Normal in tone, quality, and quantity. Mood: I am having panic attacks. Affect: Angry, irritable, labile. SI or HI: None. Perceptual disturbance: No over hallucinatory behavior noted. Thought Content: No paranoia noted today. No other delusional thinking noted. Thought Process: Normal. Cognition: Intact Judgment and Insight: Poor AIMS: Normal. Labs: No new labs. Diagnosis: No change. Plan and Recommendations: Continue current Medications. Monitor MS and side effects of medications and adjust medications accordingly. Provide supportive psychotherapy. The patient provided psychoeducation and advised The patient provided Substance abuse counseling. Smoke cessation therapy. The patient to attend pop activities. Medication Consent with explanation of risk/benefits and side effects: Explained and obtained.
--- NOTE | 2024-08-12 17:04 | P.PN ---
Progress Note - Text Progress Note Date: 08/12/24 Follow-up Mediation Review Chief Complaint: I am doing fine. Subjective: The patient noted that he is getting tired and bored waiting for his disposition. The patients family wants patient back home. The [facility] is getting approval for Act program to provide closer supervision of the patient and medication compliance. The patient was informed that this is in progress to have him discharged to home, if acceptable to his guardian. The patient did not get upset or angry. He has been compliant with medications. No side effects noted. Overall, patient is stable. He ia compliant with medications. No side effects reported. The patient has been attending the groups. The participation is limited. The interaction with staff is fair.. The patient is compliant with treatment recommendations. Leading questions: The patient denied depression. Admitted to Anxiety. Denied SI or HI. Denied symptoms of Paranoia. He does hear voices of 4 people. However, the patient has not brought this up for last few days. Sleep and Appetite: Fair Change in family/ living/job/financial/daily routine: The patient may be placed in fci post discharge. Change in medical condition: No change. Change in medications: None. Side effects from Medications: None. Objective- MSE: Alert and attentive. Orientation times three. Dressed and Groomed: Appropriately. Pleasant and cooperative. Psychomotor Activity: Normal. Speech: Normal in tone, quality, and quantity. Mood: I am having panic attacks. Affect: Angry, irritable, labile. SI or HI: None. Perceptual disturbance: No over hallucinatory behavior noted. Thought Content: No paranoia noted today. No other delusional thinking noted. Thought Process: Normal. Cognition: Intact Judgment and Insight: Poor AIMS: Normal. Labs: No new labs. Diagnosis: No change. Plan and Recommendations: Continue current Medications. Monitor MS and side effects of medications and adjust medications accordingly. Provide supportive psychotherapy. The patient provided psychoeducation and advised The patient provided Substance abuse counseling. Smoke cessation therapy. The patient to attend pop activities. Medication Consent with explanation of risk/benefits and side effects: Explained and obtained.
[2024-08-13 07:08] VITALS: BP 108/63; PULSE 51; RESP 14; TEMP 98.1
--- NOTE | 2024-08-13 12:06 | P.DS ---
Providers Date of admission: 08/04/24 19:46 Expected date of discharge: 08/13/24 Attending physician: Anselmo Minaya MD Consults: 08/04/24 19:49 Consult Physician Routine Consulting Provider: [facility] Hospitalists Consult Reason/Comments: History and Physical Do you want consulting provider notified?: Yes Primary care physician: Marco Antonio Gutiérrez - Discharge Diagnosis(es) (1) Schizoaffective disorder Current Visit: Yes Status: Acute Priority: High Hospital Course: Discharge Summary HPI: Identifying Data: Mr. Venegas is a 29 years old, single, white male, who live in [place]. Chief Complaint: History of Psychiatric Illness- The patient was brought to the hospital for talking to the voices and yelling. The patient noted that he was just yelling at call of duty. The patient noted that he talks to the voices. He has multiple voices and he is allowed to talk to them. He wants to be discharged because last night he was told that he must go up to have an evaluation and then he will be discharged. The patient is argumentative insisting on being discharged stating that he does not have Schizophrenia or schizoaffective disorder but has multiple personality disorder and talks to these voices. He stated that medications dont work and he should not be on them. He stated that his penis does not work because too many things are wrong with his genetics. The patient has had chronic auditory hallucinations. The patient denied any other symptoms. The patient was brought on pick-up order. He has a court appointed guardian. The patient gets Injection Prolixin 25 mg [id number]. His next dose was on 07/24/24. Next dose is due on 08/07/24. He goes to [facility]. As per patient, he saw Dr. Chamberlain 1-2 weeks ago. Past Psychiatric History; The patient has h/o schizoaffective disorder, bipolar type. He was first treated for psychiatric disorder at age 21. He has had several admissions since then for psychosis due to noncompliance with medications and substance abuse. This his 3rd admission to this hospital since . He goes to [facility]. [place] for out-pt treatment. Leading questions: The patient denied /admitted to Depression and Anxiety. Denied SI or HI. The patient admitted to hearing voices and he knows their names. He noted their names are Hugo, Dariana, Shonda stinson, Shraddha., Drugs and alcohol history: The patient has h/o opioid use disorder, alcohol use disorder, amphetamine type substance use disorder, marijuana use disorder and inhalant use disorder. Tobacco use: Vapes nicotine. Past Medical history: None significant. Hospital Course: After admission, the patient was involved in pharmacotherapy, pop milieu, and individual psychodynamic psychotherapy. The patient was started Prolamin and Depakote. The dose was titrated to obtain the desire effects. The patient tolerated medications well without any side effects. The patient was also involved in pop activities. The patient attended the groups and participated well. The patient interacted with peers and staff well. The patient slowly started showing improvement. The hospital course was uneventful. The patient symptoms of depression, suicidal and homicidal ideations abated. The psychosis improved. The patient was stable to be discharged to out-patient care. The patient did not have any guns or weapons in possession at home. MSE: Alert and attentive. Orientation times three Dressed and Groomed: Appropriately. Pleasant and cooperative. Psychomotor Activity: Normal. Speech: Normal in tone, quality, and quantity. Mood: I feel fine. Affect: Angry and upset. SI or HI: None. Perceptual disturbance: The patient admitted to hearing voices. Thought Content: No paranoia or other delusional thinking noted. Thought Process: Normal. Cognition: Intact Judgment and Insight: Poor. AIMS: Normal Diagnosis: Schizoaffective Disorder. Plan: The patient to be discharged today. The patient has attained good improvement since admission. He is stable to be followed as an outpatient. The patient is not suicidal or Homicidal. He does not pose any harm to self or others. The patient remains at a greater risk of self-harm or harm to others than general population on a chronic basis due to psychiatric illness and substance abuse. The patient will continue taking following medication post discharge. The importance of medication compliance and maintaining regular appointments at psychiatric out-pt and PCP clinic was explained and encouraged. The patient was also advised to seek alcohol counseling and attend AA/NA meetings. The understood and agreed with the recommendations. fast foods worker to arrange for and conduct family meeting to ensure safety upon discharge and answer any questions. The dialysis social worker to arrange for patients follow-up appointments at [facility] for psychiatric care along with follow-up with PCP. The patient provided psychoeducation. Advised to call 911 or go to nearest ED or call this hospital in case of acute worsening of symptomatology, severe side effects or having suicidal, homicidal thoughts and feeling unsafe at home. Patient Condition at Discharge: Stable Plan - Discharge Summary Discharge Rx Participant: No New Discharge Prescriptions: No Action Divalproex ER [Depakote ER] 750 mg PO DAILY methylPREDNISolone [Medrol Dose Pack] See Taper PO DIRECTED Mirtazapine [Remeron] 15 mg PO HS 30 Days #30 tab fluPHENAZine decanoate [Prolixin Decanoate] 25 mg IM Q14D Discharge Medication List Mirtazapine [Remeron] 15 mg PO HS 30 Days #30 tab 04/15/24 [Rx] Divalproex ER [Depakote ER] 750 mg PO DAILY 08/04/24 [History] fluPHENAZine decanoate [Prolixin Decanoate] 25 mg IM Q14D 08/04/24 [History] methylPREDNISolone [Medrol Dose Pack] See Taper PO DIRECTED 08/04/24 [History ] Follow up Appointment(s)/Referral(s): [facility] [Outside] - 08/26/24 1:00 pm (Today with [facility] at [facility] and at [place] 08-26-24 at 1:[address] Mancini ) Marco Antonio Gutiérrez MD [Primary Care Provider] - 1-2 days Patient Instructions/Handouts: Schizoaffective Disorder (DC) Activity/Diet/Wound Care/Special Instructions: [facility] Discharge Info Avoid the use of street drugs and alcohol. Take all medications as prescribed. When you are in need of refills on your medications, please contact your outpatient medical provider and/or outpatient psychiatrist. Please go to your scheduled outpatient appointments for aftercare treatment. If symptoms return or become worse, call the crisis line at or and/or visit the nearest emergency room for assistance. National Suicide and Crisis Lifeline - call or text 908.
[2024-08-14] MEDS ORDERED: fluPHENAZine DECANOATE 25 MG/ML 5ML MDV IM ONE (09:00)
== END 2024-08-13 14:49 | disposition home or self-care (01) | DRG 885 ==
LOC: EC 15:05 → 3MHU 19:46
PROVIDERS: ADMIT Psychiatry & Neurology Psychiatry; ATTEND Psychiatry & Neurology Psychiatry
DX: F25.0 Schizoaffective disorder, bipolar type (principal); F23 Brief psychotic disorder; F12.90 Cannabis use, unspecified, uncomplicated; F41.0 Panic disorder [episodic paroxysmal anxiety]; F44.81 Dissociative identity disorder; F22 Delusional disorders; F17.290 Nicotine dependence, other tobacco product, uncomplicated; J45.909 Unspecified asthma, uncomplicated; E66.9 Obesity, unspecified; Z68.37 Body mass index [BMI] 37.0-37.9, adult; G25.71 Drug induced akathisia; T43.505A Adverse effect of unspecified antipsychotics and neuroleptics, initial encounter; Z79.899 Other long term (current) drug therapy; Z81.8 Family history of other mental and behavioral disorders; Z91.128 Patient's intentional underdosing of medication regimen for other reason; Z28.310 Unvaccinated for COVID-19; Z11.52 Encounter for screening for COVID-19; Z56.0 Unemployment, unspecified; Z86.19 Personal history of other infectious and parasitic diseases; Z91.148 Patient's other noncompliance with medication regimen for other reason
CPT/HCPCS: 80053; 80061; 80164; 80306; 81003; 82075; 82248; 83036; 84439; 84443; 84481; 85025; 87635; 93005; 99285

== ENCOUNTER → 2024-09-15 | Outpatient (CLI) | payer MEDICARE, MEDICAID ==
[2024-09-15 17:50] LABS: ALT 28 U/L (10-49); AST 24 U/L (14-35); Albumin 4.5 g/dL (3.8-4.9); Alkaline Phosphatase 103 U/L (41-126); Bilirubin, Conjugated <0.20 mg/dL (0.20-0.40); Bilirubin,Unconjugated >0.30 mg/dL (0.20-1.00); Chol/HDL Ratio 4.96 Ratio; Globulin 2.5 g/dL (1.6-3.3); Glucose 99 mg/dL (70-110); LDL Cholesterol,Calculated 104.7 mg/dL (0.0-131.0); T4, Free (Free Thyroxine) 1.21 ng/dL (0.80-1.80); Total Bilirubin 0.5 mg/dL (0.3-1.2)
[2024-09-15 22:03] LABS: Valproic Acid (Depakene) 32.7 UG/ML (50.0-100.0)
== END | disposition home or self-care (01) ==
LOC: LABWHC1 07:55
PROVIDERS: ATTEND Psychiatry & Neurology Psychiatry
CPT/HCPCS: 36415; 80061; 80076; 80164; 82947; 83036; 84439; 84443

== ENCOUNTER 2024-10-30 08:33 | Emergency (ER) | payer MEDICARE, MEDICAID ==
[2024-10-30 08:38] VITALS: TEMP 98.1
--- NOTE | 2024-10-30 09:21 | ED ---
Seizure HPI - General Chief Complaint: Seizure Stated Complaint: Seizure Time Seen by Provider: 10/30/24 08:34 Source: patient, EMS, RN notes reviewed Mode of arrival: EMS Limitations: no limitations - History of Present Illness Initial Comments: 39-year-old male presents emergency department chief complaint of a seizure. Patient has a history of seizures is on multiple medications he states he has not missed any doses witnessed seizure with no head injury patient has no complaints at this time slightly postictal. Patient denies any illicit drug use denies chest pain or shortness of breath - Related Data Previous Rx's Medication Instructions Recorded Divalproex ER [Depakote ER] 750 mg PO DAILY 15 Days #45 tab 08/13/24 Mirtazapine [Remeron] 15 mg PO HS 15 Days #15 tab 08/13/24 clonazePAM [KlonoPIN] 0.5 mg PO BID 15 Days #30 tab 08/13/24 fluPHENAZine decanoate [Prolixin 25 mg IM ONCE 1 Days #1 ml 08/13/24 Decanoate] Divalproex ER [Depakote ER] 500 mg PO DAILY #30 tab 10/30/24 Allergies Allergy/AdvReac Type Severity Reaction Status Date / Time No Known Allergies Allergy Verified 10/30/24 08:38 Review of Systems ROS Statement: Those systems with pertinent positive or pertinent negative responses have been documented in the HPI. ROS Other: All systems not noted in ROS Statement are negative. Past Medical History Past Medical History: Asthma Additional Past Medical History / Comment(s): HPV- resolved History of Any Multi-Drug Resistant Organisms: None Reported Past Surgical History: No Surgical Hx Reported Additional Past Surgical History / Comment(s): wisdom teeth Past Anesthesia/Blood Transfusion Reactions: No Reported Reaction Past Psychological History: Anxiety, Bipolar, Depression, Schizophrenia Smoking Status: Vaper Past Alcohol Use History: Occasional Past Drug Use History: Marijuana - Past Family History Father Additional Family Medical History / Comment(s): Father is alive at age 52 with no major medical problems. Mother Additional Family Medical History / Comment(s): Mother is alive at age 52 with no major medical problems. Brother(s) Additional Family Medical History / Comment(s): Patient has one half-brother and one half-sister with no major medical problems. General Exam Limitations: no limitations General appearance: alert, in no apparent distress Head exam: Present: atraumatic, normocephalic, normal inspection Eye exam: Present: normal appearance, PERRL, EOMI. Absent: scleral icterus, conjunctival injection, periorbital swelling ENT exam: Present: normal exam, normal oropharynx, mucous membranes moist Neck exam: Present: normal inspection, full ROM. Absent: tenderness, meningismus, lymphadenopathy Respiratory exam: Present: normal lung sounds bilaterally. Absent: respiratory distress, wheezes, rales, rhonchi, stridor Cardiovascular Exam: Present: normal rhythm, tachycardia, normal heart sounds. Absent: systolic murmur, diastolic murmur, rubs, gallop, clicks GI/Abdominal exam: Present: soft, normal bowel sounds. Absent: distended, tenderness, guarding, rebound, rigid Back exam: Absent: CVA tenderness (R), CVA tenderness (L) Neurological exam: Present: alert Course Vital Signs 10/30/24 10/30/24 08:35 09:38 Temperature 98.1 F Pulse Rate 141 H 120 H Respiratory 20 Rate Blood Pressure 155/109 O2 Sat by Pulse 96 Oximetry Medical Decision Making - Medical Decision Making Was pt. sent in by a medical professional or institution (, PA, LITIGATION COUNSEL, urgent care, hospital, or senior care...) When possible be specific @ -No Did you speak to anyone other than the patient for history (EMS, parent, family, police, friend...)? What history was obtained from this source @ -No Did you review nursing and triage notes (agree or disagree)? Why? @ -I reviewed and agree with nursing and triage notes Were old charts reviewed (outside hosp., previous admission, EMS record, old EKG, old radiological studies, urgent care reports/EKG's, senior care records)? Report findings @ -No old charts were reviewed Differential Diagnosis (chest pain, altered mental status, abdominal pain women, abdominal pain men, vaginal bleeding, weakness, fever, dyspnea, syncope, headache, dizziness, GI bleed, back pain, seizure, CVA, palpatations, mental health, musculoskeletal)? @ -Differential Seizure: Recurrent seizure disorder, febrile seizure, alcohol withdrawal, stimulants, meningitis, encephalitis, intercranial hemorrhage, intracranial tumor, stroke, eclampsia, thyrotoxicosis, hypocalcemia, hyponatremia, hypernatremia, hypomagnesemia, psychogenic, this is not meant to be an all-inclusive list. EKG interpreted by me (3pts min.). @ -As above X-rays interpreted by me (1pt min.). @ -None done CT interpreted by me (1pt min.). @ -CT brain showing no acute intracranial hemorrhage, mass effect soft tissue swelling noted U/S interpreted by me (1pt. min.). @ -None done What testing was considered but not performed or refused? (CT, X-rays, U/S, labs)? Why? @ -None What meds were considered but not given or refused? Why? @ -None Did you discuss the management of the patient with other professionals (professionals i.e. , PA, LITIGATION COUNSEL, lab, RT, psych nurse, social services manager, cfa, teacher, toxics program officer, outsole caser)? Give summary @ -[EP S evaluate Case discussed case with psychiatrist recommends restarting Depakote. Was smoking cessation discussed for >3mins.? @ -No Was critical care preformed (if so, how long)? @ -No Were there social determinants of health that impacted care today? How? (Homelessness, low income, unemployed, alcoholism, drug addiction, transportation, low edu. Level, literacy, decrease access to med. care, correction, rehab)? @ -No Was there de-escalation of care discussed even if they declined (Discuss DNR or withdrawal of care, Hospice)? DNR status @ -No What co-morbidities impacted this encounter? (DM, HTN, Smoking, COPD, CAD, Cancer, CVA, ARF, Chemo, Hep., AIDS, mental health diagnosis, sleep apnea, morbid obesity)? @ -None Was patient admitted / discharged? Hospital course, mention meds given and route, prescriptions, significant lab abnormalities, going to OR and other pertinent info. @ -Discharge patient had seizure but patient has been weaning off Depakote. To psychiatry this is recommended to be restarted in which she takes to 250, 2 tablets at nighttime. Patient will follow-up with psychiatry. Patient advised he cannot drive for 6 months and cleared by neurology for Explorys. Undiagnosed new problem with uncertain prognosis? @ -No Drug Therapy requiring intensive monitoring for toxicity (Heparin, Nitro, Insulin, Cardizem)? @ -No Were any procedures done? @ -No Diagnosis/symptom? @ -Seizure, schizoaffective Acute, or Chronic, or Acute on Chronic? @ -Acute Uncomplicated (without systemic symptoms) or Complicated (systemic symptoms)? @ -Complicated Side effects of treatment? @ -No Exacerbation, Progression, or Severe Exacerbation? @ -No Poses a threat to life or bodily function? How? (Chest pain, [place], [place], pneumonia, PE, COPD, DKA, ARF, appy, cholecystitis, CVA, Diverticulitis, Homicidal, Suicidal, threat to staff... and all critical care pts) @ -No - Lab Data Result diagrams: 10/30/24 08:47 10/30/24 08:47 Lab Results 10/30/24 10/30/24 10/30/24 Range/Units 08:47 08:47 11:01 WBC 6.4 (3.8-10.6) k/uL RBC 4.68 (4.30-5.90) m/uL Hgb 14.9 (13.0-17.5) gm/dL Hct 44.3 (39.0-53.0) % MCV 94.5 (80.0-100.0) fL MCH 31.9 (25.0-35.0) pg MCHC 33.7 (31.0-37.0) g/dL RDW 12.7 (11.5-15.5) % Plt Count 259 (150-450) k/uL MPV 7.0 Neutrophils % 71 % Lymphocytes % 19 % Monocytes % 6 % Eosinophils % 3 % Basophils % 1 % Neutrophils # 4.5 (1.3-7.7) k/uL Lymphocytes # 1.2 (1.0-4.8) k/uL Monocytes # 0.4 (0-1.0) k/uL Eosinophils # 0.2 (0-0.7) k/uL Basophils # 0.0 (0-0.2) k/uL Sodium 134 L (137-145) mmol/L Potassium 4.0 (3.5-5.1) mmol/L Chloride 102 (98-107) mmol/L Carbon Dioxide 24 (22-30) mmol/L Anion Gap 8 mmol/L BUN 12 (9-20) mg/dL Creatinine 0.86 (0.66-1.25) mg/dL Est GFR (CKD-EPI)AfAm >90 (>60 ml/min/1.73 sqM) Est GFR (CKD-EPI)NonAf >90 (>60 ml/min/1.73 sqM) Glucose 112 H (74-99) mg/dL Calcium 9.1 (8.4-10.2) mg/dL Magnesium 1.9 (1.6-2.3) mg/dL Total Bilirubin 0.9 (0.2-1.3) mg/dL AST 36 (17-59) U/L ALT 54 H (4-49) U/L Alkaline Phosphatase 101 (38-126) U/L Total Protein 7.5 (6.3-8.2) g/dL Albumin 4.4 (3.5-5.0) g/dL Urine Opiates Screen Not Detected (NotDetected) Ur Oxycodone Screen Not Detected (NotDetected) Urine Methadone Screen Not Detected (NotDetected) Ur Barbiturates Screen Not Detected (NotDetected) Valproic Acid <10.0 ug/mL U Tricyclic Antidepress Detected H (NotDetected) Ur Phencyclidine Scrn Not Detected (NotDetected) Ur Amphetamines Screen Not Detected (NotDetected) U Methamphetamines Scrn Not Detected (NotDetected) U Benzodiazepines Scrn Not Detected (NotDetected) Urine Cocaine Screen Not Detected (NotDetected) U Marijuana (THC) Screen Not Detected (NotDetected) Serum Alcohol mg/dL 10/30/24 Range/Units 11:01 WBC (3.8-10.6) k/uL RBC (4.30-5.90) m/uL Hgb (13.0-17.5) gm/dL Hct (39.0-53.0) % MCV (80.0-100.0) fL MCH (25.0-35.0) pg MCHC (31.0-37.0) g/dL RDW (11.5-15.5) % Plt Count (150-450) k/uL MPV Neutrophils % % Lymphocytes % % Monocytes % % Eosinophils % % Basophils % % Neutrophils # (1.3-7.7) k/uL Lymphocytes # (1.0-4.8) k/uL Monocytes # (0-1.0) k/uL Eosinophils # (0-0.7) k/uL Basophils # (0-0.2) k/uL Sodium (137-145) mmol/L Potassium (3.5-5.1) mmol/L Chloride (98-107) mmol/L Carbon Dioxide (22-30) mmol/L Anion Gap mmol/L BUN (9-20) mg/dL Creatinine (0.66-1.25) mg/dL Est GFR (CKD-EPI)AfAm (>60 ml/min/1.73 sqM) Est GFR (CKD-EPI)NonAf (>60 ml/min/1.73 sqM) Glucose (74-99) mg/dL Calcium (8.4-10.2) mg/dL Magnesium (1.6-2.3) mg/dL Total Bilirubin (0.2-1.3) mg/dL AST (17-59) U/L ALT (4-49) U/L Alkaline Phosphatase (38-126) U/L Total Protein (6.3-8.2) g/dL Albumin (3.5-5.0) g/dL Urine Opiates Screen (NotDetected) Ur Oxycodone Screen (NotDetected) Urine Methadone Screen (NotDetected) Ur Barbiturates Screen (NotDetected) Valproic Acid ug/mL U Tricyclic Antidepress (NotDetected) Ur Phencyclidine Scrn (NotDetected) Ur Amphetamines Screen (NotDetected) U Methamphetamines Scrn (NotDetected) U Benzodiazepines Scrn (NotDetected) Urine Cocaine Screen (NotDetected) U Marijuana (THC) Screen (NotDetected) Serum Alcohol <10 mg/dL - EKG Data -: EKG Interpreted by Me EKG Comments: EKG performed at 8: 45 sinus tachycardia with rate of 136 MT 128 QRS 82 QT/QTc 369/449 Disposition Clinical Impression: Schizoaffective disorder, Bipolar disorder, Generalized seizure Disposition: HOME SELF-CARE Condition: Stable Instructions (If sedation given, give patient instructions): Seizure/Epilepsy Discharge Instructions & Follow-Up Additional Instructions: Please return to the Emergency Department if symptoms worsen or any other conc erns. Prescriptions: Divalproex ER [Depakote ER] 500 mg PO DAILY #30 tab Is patient prescribed a controlled substance at d/c from ED?: No Referrals: Marco Antonio Gutiérrez MD [Primary Care Provider] - 1-2 days Time of Disposition: 13:44
[2024-10-30] MEDS: SODIUM CHLORIDE 0.9% 1,000 ML IV STA (09:23)
[2024-10-30 09:30] LABS: Basophils % (A) 1 %; Eosinophils # (A) 0.2 k/uL (0-0.7); Eosinophils % (A) 3 %; HCT 44.3 % (39.0-53.0); HGB 14.9 gm/dL (13.0-17.5); Lymphocytes # (A) 1.2 k/uL (1.0-4.8); Lymphocytes % (A) 19 %; MCH 31.9 pg (25.0-35.0); MCHC 33.7 g/dL (31.0-37.0); MCV 94.5 fL (80.0-100.0); Monocytes # (A) 0.4 k/uL (0-1.0); Monocytes % (A) 6 %; Neutrophils # (A) 4.5 k/uL (1.3-7.7); Neutrophils % (A) 71 %; Platelet Count 259 k/uL (150-450); RBC 4.68 m/uL (4.30-5.90); RDW 12.7 % (11.5-15.5); WBC 6.4 k/uL (3.8-10.6)
[2024-10-30 09:43] LABS: ALT 54 U/L (4-49); AST 36 U/L (17-59); African American GFR (CKD) >90 (>60 ml/min/1.73 sqM); Albumin 4.4 g/dL (3.5-5.0); Alkaline Phosphatase 101 U/L (38-126); Anion Gap 8 mmol/L; Blood Urea Nitrogen 12 mg/dL (9-20); Calcium 9.1 mg/dL (8.4-10.2); Carbon Dioxide 24 mmol/L (22-30); Chloride 102 mmol/L (98-107); Glucose 112 mg/dL (74-99); Magnesium 1.9 mg/dL (1.6-2.3); Non-African American GFR(CKD) >90 (>60 ml/min/1.73 sqM); Sodium 134 mmol/L (137-145); Total Bilirubin 0.9 mg/dL (0.2-1.3); Total Protein 7.5 g/dL (6.3-8.2)
[2024-10-30 09:48] LABS: Valproic Acid (Depakene) <10.0 ug/mL
--- NOTE | 2024-10-30 10:43 | CT ---
EXAMINATION TYPE: CT brain wo con DATE OF EXAM: 10/30/2024 COMPARISON: None CLINICAL INDICATION: Male, 29 years old with history of head trauma, fall down steps; [facility], fall, hit head, no LOC CT DLP: 1096.4 mGycm Automated exposure control for dose reduction was used. Findings: The ventricles, basal cisterns and sulci over the convexities are within normal limits and there is n o mass effect or shift of midline structures. No abnormal density is seen throughout the brain parenchyma and there is no acute intra or extra-axia l hemorrhage. The posterior fossa including the brainstem, fourth ventricle and cerebellar pontine angles appear no rmal. Intraorbital contents appear normal and symmetric. Visualized paranasal sinuses and mastoid air cells are well aerated. The calvarium is intact. There is moderate soft tissue swelling over the left orbit. IMPRESSION: No significant abnormality seen. There is no acute bleed or mass effect. Soft tissue swelling over th e left orbit but no other evidence of acute trauma. [facility], Workstation: LORI 10/30/2024 10:41 AM
[2024-10-30] MEDS: LORazepam 2 MG/ML INJ IV STA (10:45)
[2024-10-30] MEDS: SODIUM CHLORIDE 0.9% 1,000 ML IV ONE (10:47)
[2024-10-30 11:34] LABS: Amphetamine Screen,Urine Not Detected (NotDetected); Barbiturate Screen,Urine Not Detected (NotDetected); Benzodiazepines Screen,Urine Not Detected (NotDetected); Cocaine Screen,Urine Not Detected (NotDetected); Methadone Screen, Urine Not Detected (NotDetected); Opiate Screen,Urine Not Detected (NotDetected); Oxycodone Screen, Urine Not Detected (NotDetected); Phencyclidine Screen,Urine Not Detected (NotDetected); Tricyclic Antidepressant,Urine Detected (NotDetected); Urn Cannabinoid Scrn Not Detected (NotDetected)
[2024-10-30 13:58] VITALS: BP 150/80; PULSE 97; RESP 17
== END 2024-10-30 13:58 | disposition home or self-care (01) ==
LOC: EC 08:33
DX: F25.9 Schizoaffective disorder, unspecified (principal); F31.9 Bipolar disorder, unspecified; G40.409 Other generalized epilepsy and epileptic syndromes, not intractable, without status epilepticus; F17.290 Nicotine dependence, other tobacco product, uncomplicated
CPT/HCPCS: 36415; 93005; 80164; 80053; 83735; 85025; 80306; 80320; 70450; 99285; 96374; 96361 ×2; J2060

== ENCOUNTER → 2025-05-19 | Outpatient (CLI) | payer MEDICARE, MEDICAID | END | disposition home or self-care (01) | LOC: LABWHC1 09:09 | PROVIDERS: ATTEND Psychiatry & Neurology Neurology | DX: G40.909 Epilepsy, unspecified, not intractable, without status epilepticus (principal) | CPT/HCPCS: 36415; 80175 ==

== ENCOUNTER 2025-05-20 09:05 | Emergency (ER) | payer MEDICARE, OTHER ==
[2025-05-20 09:35] VITALS: RESP 18; TEMP 98.3
[2025-05-20 10:03] LABS: Basophils # (A) 0.02 10*3/uL (0.00-0.10); Basophils % (A) 0.3 %; Eosinophils # (A) 0.09 10*3/uL (0.04-0.35); Eosinophils % (A) 1.5 %; HCT 44.5 % (39.6-50.0); HGB 15.5 g/dL (13.0-17.0); Lymphocytes # (A) 1.55 10*3/uL (0.90-5.00); Lymphocytes % (A) 25.3 %; MCH 33.3 pg (27.0-32.0); MCHC 34.8 g/dL (32.0-37.0); MCV 95.7 fL (80.0-97.0); Mean Platelet Volume 9.7 fL (9.5-12.2); Monocytes # (A) 0.39 10*3/uL (0.20-1.00); Monocytes % (A) 6.4 %; Neutrophils # (A) 4.05 10*3/uL (1.80-7.70); Neutrophils % (A) 66.2 %; Platelet Count 261 10*3/uL (140-440); RBC 4.65 10*6/uL (4.40-5.60); RDW 12.8 % (11.5-14.5); WBC 6.12 10*3/uL (4.50-10.00)
[2025-05-20 10:16] LABS: ALT 42 U/L (4-49); African American GFR (CKD) >90 (>60 ml/min/1.73 sqM); Albumin 4.4 g/dL (3.5-5.0); Anion Gap 9 mmol/L; Blood Urea Nitrogen 16 mg/dL (9-20); Calcium 9.4 mg/dL (8.4-10.2); Carbon Dioxide 25 mmol/L (22-30); Chloride 103 mmol/L (98-107); Glucose 116 mg/dL (74-99); Lipase 38 U/L (23-300); Non-African American GFR(CKD) >90 (>60 ml/min/1.73 sqM); Sodium 137 mmol/L (137-145); Total Bilirubin 0.9 mg/dL (0.2-1.3); Total Protein 7.2 g/dL (6.3-8.2)
[2025-05-20 10:22] LABS: Appearance,Urine Cloudy (Clear); Bacteria,Urine Rare /hpf; Bilirubin,Urine Negative (Negative); Blood,Urine Negative (Negative); Color,Urine Yellow; Glucose,Urine (UA) Negative (Negative); Ketones,Urine 1+ (Negative); Leukocyte Esterase,Urine Trace (Negative); Mucus,Urine Many /hpf; Nitrite,Urine Negative (Negative); Protein,Urine 1+ (Negative); RBC,Urine 3 /hpf (0-5); Specific Gravity,Urine 1.028 (1.001-1.035); Squamous Epithelial Cell,Urine 1 /hpf (0-4); WBC,Urine 5 /hpf (0-5)
[2025-05-20 10:24] LABS: AST 42 U/L (17-59); Alkaline Phosphatase 83 U/L (38-126); Potassium 4.7 mmol/L (3.5-5.1)
--- NOTE | 2025-05-20 11:02 | ED ---
General Adult HPI - General Chief complaint: Back Pain/Injury Stated complaint: Abd / side pain Time Seen by Provider: 05/20/25 09:22 Source: patient, RN notes reviewed Mode of arrival: ambulatory Limitations: no limitations - History of Present Illness Initial comments: 30-year-old male presents emergency department complaint of right-sided abdominal pain right flank pain. Patient states that has been present for the past 5 days states he tried some Motrin no much improvement he does admit that it is worse with movement but denies any trauma no injuries no significant nausea vomit diarrhea constipation no dysuria no hematuria no prior history of kidney stones no other associated symptoms. - Related Data Previous Rx's Medication Instructions Recorded Divalproex ER [Depakote ER] 750 mg PO DAILY 15 Days #45 tab 08/13/24 Mirtazapine [Remeron] 15 mg PO HS 15 Days #15 tab 08/13/24 clonazePAM [KlonoPIN] 0.5 mg PO BID 15 Days #30 tab 08/13/24 fluPHENAZine decanoate [Prolixin 25 mg IM ONCE 1 Days #1 ml 08/13/24 Decanoate] Divalproex ER [Depakote ER] 500 mg PO DAILY #30 tab 10/30/24 Allergies Allergy/AdvReac Type Severity Reaction Status Date / Time No Known Allergies Allergy Verified 05/20/25 09:32 Review of Systems ROS Statement: Those systems with pertinent positive or pertinent negative responses have been documented in the HPI. ROS Other: All systems not noted in ROS Statement are negative. Past Medical History Past Medical History: Asthma Additional Past Medical History / Comment(s): HPV- resolved History of Any Multi-Drug Resistant Organisms: None Reported Past Surgical History: No Surgical Hx Reported Additional Past Surgical History / Comment(s): wisdom teeth Past Anesthesia/Blood Transfusion Reactions: No Reported Reaction Past Psychological History: Anxiety, Bipolar, Depression, Schizophrenia Smoking Status: Vaper Past Alcohol Use History: Occasional Past Drug Use History: Marijuana - Past Family History Father Additional Family Medical History / Comment(s): Father is alive at age 52 with no major medical problems. Mother Additional Family Medical History / Comment(s): Mother is alive at age 52 with no major medical problems. Brother(s) Additional Family Medical History / Comment(s): Patient has one half-brother and one half-sister with no major medical problems. General Exam Limitations: no limitations General appearance: alert, in no apparent distress Head exam: Present: atraumatic, normocephalic, normal inspection Eye exam: Present: normal appearance, PERRL, EOMI. Absent: scleral icterus, conjunctival injection, periorbital swelling ENT exam: Present: normal exam, normal oropharynx, mucous membranes moist Neck exam: Present: normal inspection, full ROM. Absent: tenderness, meningismus, lymphadenopathy Respiratory exam: Present: normal lung sounds bilaterally. Absent: respiratory distress, wheezes, rales, rhonchi, stridor Cardiovascular Exam: Present: regular rate, normal rhythm, normal heart sounds. Absent: systolic murmur, diastolic murmur, rubs, gallop, clicks GI/Abdominal exam: Present: soft, normal bowel sounds. Absent: distended, tenderness, guarding, rebound, rigid Back exam: Absent: CVA tenderness (R), CVA tenderness (L) Neurological exam: Present: alert, oriented X3 Skin exam: Present: warm, dry, intact, normal color. Absent: rash Course Vital Signs 05/20/25 09:32 Temperature 98.3 F Pulse Rate 86 Respiratory 18 Rate Blood Pressure 125/79 O2 Sat by Pulse 96 Oximetry Medical Decision Making - Medical Decision Making Was pt. sent in by a medical professional or institution ([facility]NE[facility] Moon, [employer], urgent care, hospital, or [facility]...) When possible be specific @ -No Did you speak to anyone other than the patient for history (EMS, parent, family, police, friend...)? What history was obtained from this source @ -No Did you review nursing and triage notes (agree or disagree)? Why? @ -I reviewed and agree with nursing and triage notes Were old charts reviewed (outside hosp., previous admission, EMS record, old EKG, old radiological studies, urgent care reports/EKG's, [facility] records)? Report findings @ -No old charts were reviewed Differential Diagnosis (chest pain, altered mental status, abdominal pain women, abdominal pain men, vaginal bleeding, weakness, fever, dyspnea, syncope, headache, dizziness, GI bleed, back pain, seizure, CVA, palpatations, mental health, musculoskeletal)? @ -Differential Abdominal Pain Men: Appendicitis, cholecystitis, diverticulosis, ischemic bowel, pancreatitis, hepatitis, UTI, gastroenteritis, AAA, incarcerated hernia, bowel obstruction, constipation, inflammatory bowel, hepatitis, peptic ulcer disease, splenic infarction, perforated viscus, testicular torsion, this is not meant to be an all-inclusive list EKG interpreted by me (3pts min.). @ -None X-rays interpreted by me (1pt min.). @ -None done CT interpreted by me (1pt min.). @ -CT abdomen pelvis showing no acute intra-abdominal process. U/S interpreted by me (1pt. min.). @ -None done What testing was considered but not performed or refused? (CT, X-rays, U/S, labs)? Why? @ -None What meds were considered but not given or refused? Why? @ -None Did you discuss the management of the patient with other professionals (professionals i.e. , PA, [employer], lab, RT, psych nurse, social service technician, director executive communications, teacher, public records officer, case briefer)? Give summary @ -No Was smoking cessation discussed for >3mins.? @ -No Was critical care preformed (if so, how long)? @ -No Were there social determinants of health that impacted care today? How? (Homelessness, low income, unemployed, alcoholism, drug addiction, transportation, low edu. Level, literacy, decrease access to med. care, skilled nursing, rehab)? @ -No Was there de-escalation of care discussed even if they declined (Discuss DNR or withdrawal of care, Hospice)? DNR status @ -No What co-morbidities impacted this encounter? (DM, HTN, Smoking, COPD, CAD, Cancer, CVA, ARF, Chemo, Hep., AIDS, mental health diagnosis, sleep apnea, morbid obesity)? @ -None Was patient admitted / discharged? Hospital course, mention meds given and route, prescriptions, significant lab abnormalities, going to OR and other pertinent info. @ -Discharge patient's laboratory studies, urinalysis and CT is unremarkable. This felt very more likely skeletal pain. Patient be discharged in stable condition return for discussed. Undiagnosed new problem with uncertain prognosis? @ -No Drug Therapy requiring intensive monitoring for toxicity (Heparin, Nitro, Insuli n, Cardizem)? @ -No Were any procedures done? @ -No Diagnosis/symptom? @ -Abdominal wall pain Acute, or Chronic, or Acute on Chronic? @ -Acute Uncomplicated (without systemic symptoms) or Complicated (systemic symptoms)? @ -Complicated Side effects of treatment? @ -No Exacerbation, Progression, or Severe Exacerbation? @ -No Poses a threat to life or bodily function? How? (Chest pain, [place], [place], pneumonia, PE, COPD, DKA, ARF, appy, cholecystitis, CVA, Diverticulitis, Homicidal, Suicidal, threat to staff... and all critical care pts) @ -No - Lab Data Result diagrams: 05/20/25 09:51 05/20/25 09:51 Lab Results 05/20/25 05/20/25 05/20/25 Range/Units 09:51 09:51 09:51 WBC 6.12 (4.50-10.00) 10*3/uL RBC 4.65 (4.40-5.60) 10*6/uL Hgb 15.5 (13.0-17.0) g/dL Hct 44.5 (39.6-50.0) % MCV 95.7 (80.0-97.0) fL MCH 33.3 H (27.0-32.0) pg MCHC 34.8 (32.0-37.0) g/dL Plt Count 261 (140-440) 10*3/uL MPV 9.7 (9.5-12.2) fL Immature Gran % (Auto) 0.3 % Neutrophils % 66.2 % Lymphocytes % 25.3 % Monocytes % 6.4 % Eosinophils % 1.5 % Basophils % 0.3 % Immature Gran # 0.02 (0.00-0.04) 10*3/uL Neutrophils # 4.05 (1.80-7.70) 10*3/uL Lymphocytes # 1.55 (0.90-5.00) 10*3/uL Monocytes # 0.39 (0.20-1.00) 10*3/uL Eosinophils # 0.09 (0.04-0.35) 10*3/uL Basophils # 0.02 (0.00-0.10) 10*3/uL Sodium 137 (137-145) mmol/L Potassium 4.7 (3.5-5.1) mmol/L Chloride 103 (98-107) mmol/L Carbon Dioxide 25 (22-30) mmol/L Anion Gap 9 mmol/L BUN 16 (9-20) mg/dL Creatinine 0.85 (0.66-1.25) mg/dL Est GFR (CKD-EPI)AfAm >90 (>60 ml/min/1.73 sqM) Est GFR (CKD-EPI)NonAf >90 (>60 ml/min/1.73 sqM) Glucose 116 H (74-99) mg/dL Calcium 9.4 (8.4-10.2) mg/dL Total Bilirubin 0.9 (0.2-1.3) mg/dL AST 42 (17-59) U/L ALT 42 (4-49) U/L Alkaline Phosphatase 83 (38-126) U/L Total Protein 7.2 (6.3-8.2) g/dL Albumin 4.4 (3.5-5.0) g/dL Lipase 38 (23-300) U/L Urine Color Yellow Urine Appearance Cloudy (Clear) Urine pH 7.0 (5.0-8.0) Ur Specific [place] 1.028 (1.001-1.035) Urine Protein 1+ H (Negative) Urine Glucose (UA) Negative (Negative) Urine Ketones 1+ H (Negative) Urine Blood Negative (Negative) Urine Nitrite Negative (Negative) Urine Bilirubin Negative (Negative) Urine Urobilinogen 2.0 (<2.0) mg/dL Ur Leukocyte Esterase Trace H (Negative) Urine RBC 3 (0-5) /hpf Urine WBC 5 (0-5) /hpf Ur Squamous Epith Cells 1 (0-4) /hpf Urine Bacteria Rare H (None) /hpf Urine Mucus Many H (None) /hpf Disposition Clinical Impression: Abdominal wall pain Disposition: HOME SELF-CARE Condition: Stable Instructions (If sedation given, give patient instructions): Abdominal Pain (ED) Additional Instructions: Please return to the Emergency Department if symptoms worsen or any other concerns. Is patient prescribed a controlled substance at d/c from ED?: No Referrals: Marco Antonio Gutiérrez MD [Primary Care Provider] - 1-2 days Time of Disposition: 11:27
--- NOTE | 2025-05-20 11:16 | CT ---
EXAMINATION TYPE: CT abdomen pelvis w con DATE OF EXAM: 05/20/2025 10:44 AM COMPARISON: None. CLINICAL INDICATION: Male, 30 years old with history of right side pain, RIGHT SIDE PAIN TECHNIQUE: Axial images were obtained from above the diaphragm to the pubic rami in the axial plane a t 5 mm thick sections. Reconstructed images are reviewed on the computer in the coronal plane. CONTRAST: 100 ml mL of Isovue 300. Study performed without Oral Contrast DLP: 1715.3 mGycm, Automated exposure control for dose reduction was used. FINDINGS: Limited CT sections are obtained the lung bases. The lung bases are clear. CT ABDOMEN: Liver: Normal Spleen: Normal Pancreas: Normal Adrenal glands: The adrenal glands are normal. Gallbladder: Normal Kidneys: No masses are evident. No hydronephrosis is present. No cysts are present. No renal stone s evident. Aorta: Normal Inferior vena cava: Normal. CT PELVIS: Loops of bowel within the abdomen and pelvis are normal. The study is without oral contrast limit ing bowel evaluation. Appendix: Normal as visualized. No dilated tubular structure or inflammatory change is evident. No chicas spicious abscess identified. Urinary bladder: Decompressed with limited evaluation Genitourinary structures: Prostate appears normal. Osseous structures: No suspicious lytic or sclerotic lesions. IMPRESSION: 1. No suspicious acute changes. [facility], , 05/20/2025 11:14 AM
[2025-05-20 11:51] VITALS: BP 128/80; PULSE 80
== END 2025-05-20 11:43 | disposition home or self-care (01) ==
LOC: EC 09:05
DX: R10.9 Unspecified abdominal pain (principal); F17.290 Nicotine dependence, other tobacco product, uncomplicated
CPT/HCPCS: 36415; 80053; 83690; 85025; 81001; 74177; 99284; Q9967

== ENCOUNTER → 2025-06-22 | Outpatient (CLI) | payer MEDICARE, OTHER | END | disposition home or self-care (01) | LOC: LABWHC1 07:22 | PROVIDERS: ATTEND Psychiatry & Neurology Neurology | DX: G40.909 Epilepsy, unspecified, not intractable, without status epilepticus (principal) | CPT/HCPCS: 36415; 80175 ==